=== PATIENT | female | born 1940 | race Caucasian/White ===

== ENCOUNTER 2018-04-12 11:30 | Outpatient (RCR) | payer SELFPAY | END 2018-04-12 23:59 | disposition home or self-care (01) | LOC: CR 11:30 | PROVIDERS: PCP Family Medicine; Visit Provider Family Medicine | DX: Z51.89 Encounter for other specified aftercare (principal) | CPT/HCPCS: S9472 ==

== ENCOUNTER 2018-05-10 13:17 | Outpatient (RCR) | payer SELFPAY | END 2018-05-12 23:59 | disposition home or self-care (01) | LOC: CR 13:17 | PROVIDERS: PCP Family Medicine; Visit Provider Family Medicine | DX: Z51.89 Encounter for other specified aftercare (principal) | CPT/HCPCS: S9472 ==

== ENCOUNTER 2018-06-07 11:09 | Outpatient (RCR) | payer SELFPAY | END 2018-06-12 23:59 | disposition home or self-care (01) | LOC: CR 11:09 | PROVIDERS: PCP Family Medicine; Visit Provider Family Medicine | DX: Z51.89 Encounter for other specified aftercare (principal) | CPT/HCPCS: S9472 ==

== ENCOUNTER 2018-06-11 06:28 | Day surgery (SDC) | payer MEDICARE, SELFPAY ==
--- NOTE | 2018-06-11 06:30 | W.COLOREPORT ---
Colonoscopy Report Date of procedure: 06/11/18 Pre-op diagnosis general: Hx of polyps Post-op diagnosis procedure note: other (Sessile polyps x3, diverticulosis, melanosis coli) Procedure: Colonoscopy with polypectomy by hot snare and cold forceps Surgeon: Zeinab Smith Anesthesia proc note operative: MAC (Malia Baez CRNA) Estimated blood loss (mL): 5 Pathology: other (cecal polyp x1, ascending polyps x3) Complications: None Disposition: same day Indications: Mrs. Coleman is a pleasant 77-year-old female who was seen in the office to discuss a colonoscopy. She had a colonoscopy in 2011 and was found to have a tubular adenoma. Risks, benefits, and complications were reviewed with her again and she wished to proceed. No guarantees were given or implied. Prep: Miralax/Dulcolax Procedure Start Time: 08:41 Procedure End Time: 09:27 Retraction Time: 26 min Findings: sessile cecal polyp sessile ascending polyp melanosis coli Diverticulosis Procedure Description: After informed consent was obtained the patient was taken to the procedure room and placed in a left decubitous position. Monitors were applied and a time out was done. The patients name, date of , procedure, allergies to medications and metal in their body was reviewed. The patient was then sedated. Once sedated and comfortable a rectal exam was done. External exam was normal. Internal exam revealed a normal sphincter tone and no palpable masses. The scope was then introduced and retroflexed. No internal hemorrhoids were identified. The scope was then advanced to the cecum with some difficulty. The colon was very tortuous. The TI and appendiceal orifice were identified. The prep was good. The scope was then slowly retracted over 26 minutes back into the rectum. There was one sessile polyp adjacent to the appendiceal orifice which was removed with a hot snare and forceps. 3 sessile polyps were identified in the ascending colon and were removed with hot snare and cold forceps. There was moderate to severe diverticulosis of the sigmoid colon. 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 The scope was removed and the patient was woken up and taken back to Same day surgery in stable condition. The patient tolerated the procedure well and there were no immediate complications. Follow up: The patient should follow up in 3-5 years unless they develop changes in bowel habits or other new gastrointestinal complaints.
--- NOTE | 2018-06-11 06:39 | W.PM.DSUDISC ---
Discharge Plan Disposition Patient Disposition: HOME Condition: Good Discharge Details Reason For Visit: Colonoscopy Attending Provider: Zeinab Smith Primary Care Provider: Tamie Mary Home Meds and New Rx's Prescriptions: Continue [id number] [Excedrin Extra Strength] 1 EACH tablet 81 mg PO DAILY PRNRF: 0 [id number] [Caltrate 600-D Plus Minerals] 1 EACH tablet 1,200 tab PO DAILY RF: 0 omeprazole [Prilosec] 20 MG capsule,delayed release(DR/EC) 1 tab PO DAILY Qty: 90 RF: 4 amoxicillin 500 MG capsule 2,000 mg PO PRN Qty: 4 RF: 3 rizatriptan [Maxalt-DIRECTOR OF MIDWIF[employer]/STAFF MIDWIFE] 10 MG tablet,disintegrating 1 tab PO BID PRNQty: 5 RF: 0 levothyroxine 50 MCG tablet 1 tab PO DAILY Qty: 90 RF: 4 lisinopril 10 MG tablet 10 mg PO DAILY Qty: 90 RF: 3 metoprolol tartrate 50 MG tablet 50 mg PO BID Qty: 180 RF: 12 lovastatin 20 MG tablet 20 mg PO DAILY Qty: 90 RF: 12 diazepam [Valium] 5 MG tablet 1 tab PO BID PRNQty: 90 RF: 2 Aspirin/Acetaminophen/Caffeine [Excedrin Extra Strength Caplet] 1 EACH tablet 2 ea PO DAILY RF: 0 multivitamin [Daily Multiple] 1 EACH tablet 1 ea PO DAILY RF: 0 docusate sodium [Colace] 100 MG capsule 100 mg PO DAILY PRNRF: 0 omega-3 fatty acids-fish oil 1 EACH capsule 1 ea PO DAILY RF: 0 magnesium oxide 500 MG capsule 500 mg PO DAILY RF: 0 lactobacillus combination no.4 [Probiotic] 1 EACH capsule 1 ea PO DAILY RF: 0 Colon Cleanse PRNRF: 0 Varicella-Zoster Ge/As01b/Pf [Shingrix Vial Kit] 50 MCG INJ 50 mcg IM ONCE Qty: 1 RF: 1 calcium carbonate [Calcium 600] 600 mg calcium (1,500 mg) Tablet 600 mg PO DAILY RF: 0 coenzyme Q10 [CoQ-10] 100 mg Capsule 100 mg PO DAILY RF: 0 Discontinued bisacodyl [Dulcolax (bisacodyl)] 5 mg Tablet,Delayed Release (Dr/Ec) 5 mg PO PREOP RF: 0 polyethylene glycol 3350 [Miralax] 17 gram/dose Powder See Label Instructions .ROUTE .COMPLEX RF: 0 Discharge Instructions Instructions: Colonoscopy (DC), Colorectal Polyps (DC), Diverticulosis (DC) Additional Instructions: Findings: 4 polyps Diverticulosis Follow up: 3-5 years New Medications: none Please call if you develop: fevers >101.5 Nausea or Vomiting Abdominal pain that is not transient Shortness of breath DAY SURGERY UNIT POST COLONOSCOPY INSTRUCTIONS 1. Because there will be medication in your system for the next 24 hours, you may feel a little sleepy. Your coordination will be affected. Therefore: a. Do not drive or operate dangerous equipment for 24 hours. b. Do not drink alcohol beverages for 24 hours (not even beer). c. Plan to go home and rest for the day. 2. Generally there are no restrictions on your activity after a day or so has gone by, but you may feel a bit fatigued for a few days. 3 After you arrive home you may have a light meal and return to a normal diet as you can tolerate it without feeling sick to your stomach. 4. After surgery, you may feel pain or discomfort. This should be only transient, but if it persists please contact your doctor. 5. If there are any questions regarding the findings of your procedure, please feel free to contact your doctor. 6. If you are unable to contact your doctor with a problem, contact the hospital at [phone]. 7. Continue all your regular medications unless directed otherwise. I understand the above instructions and have no questions. Signature of Patient or Responsible Adult Escort Date/Time Name of Responsible Adult Escort Signature of Nurse Date/Time Activity:: Activity as Tolerated Diet:: high fiber diet Discharge Orders Discharge Orders: Discharge Order (Routine); Ordered 06/11/18 Ordered By: Zeinab Smith DS: Diagnosis Discharge Diagnosis (1) Colorectal polyps: Status: Acute (2) Diverticulosis: Status: Acute
[2018-06-11 07:30] VITALS: BP 160/88; PULSE 94; RESP 18; TEMP 36.7; O2SAT 96
[2018-06-11] MEDS: Normal Saline 1,000 ML 80 ML IV (07:57)
--- NOTE | 2018-06-11 09:00 | BOWEL_PTH ---
PATIENT: Fiorella Coleman LOC: [facility] U#:[id number] AGE/SX: 77/F ROOM: RE06/11/[address]: Zeinab Smith MD : 1940 BED: DIS: 06/11/2018 SPEC #: [id number] RECD: 06/11/18 13:01 STATUS: FERNANDO REQ #: [id number] JOAO: 06/11/18 09:[address]: Zeinab Smith DEPT: Surgical Specimen RECD BY: Luh Gastelum ENTERED: 06/11/18 13:02 SP TYPE: Bowel OTHR DR: Tamie Mary MD, DC Tissues: 1 - BIOPSY BOWEL 2 - BIOPSY BOWEL Procedures: GROSS AND MICRO LEVEL 4 Comments: [id number]
[2018-06-11 10:01] VITALS: BP 175/94; PULSE 94; RESP 16; TEMP 36.7; O2SAT 96
== END 2018-06-11 10:39 | disposition home or self-care (01) ==
PROVIDERS: PCP Family Medicine; Visit Provider Surgery
PROC: 0DJD8ZZ Inspection of Lower Intestinal Tract, Via Natural or Artificial Opening Endoscopic (ICD-10-PCS; CPT 45378; principal; 2018-06-11 08:15)
DX: Z12.11 Encounter for screening for malignant neoplasm of colon (principal); D12.0 Benign neoplasm of cecum; D12.2 Benign neoplasm of ascending colon; K57.30 Diverticulosis of large intestine without perforation or abscess without bleeding; K63.89 Other specified diseases of intestine; I10 Essential (primary) hypertension; K21.9 Gastro-esophageal reflux disease without esophagitis
CPT/HCPCS: 45385; 88305

== ENCOUNTER 2018-07-12 13:24 | Outpatient (RCR) | payer SELFPAY | END 2018-07-12 23:59 | disposition home or self-care (01) | LOC: CR 13:24 | PROVIDERS: PCP Family Medicine; Visit Provider Family Medicine | DX: Z51.89 Encounter for other specified aftercare (principal) | CPT/HCPCS: S9472 ==

== ENCOUNTER 2018-08-12 12:49 | Outpatient (RCR) | payer SELFPAY | END 2018-08-12 23:59 | disposition home or self-care (01) | LOC: CR 12:49 | PROVIDERS: PCP Family Medicine; Visit Provider Family Medicine | DX: Z51.89 Encounter for other specified aftercare (principal) | CPT/HCPCS: S9472 ==

== ENCOUNTER 2018-08-14 12:34 | Outpatient (CLI) | payer MEDICARE, SELFPAY | END 2018-08-14 12:54 | PROVIDERS: PCP Family Medicine; Visit Provider Student in an Organized Health Care Education/Training Program | DX: I48.0 Paroxysmal atrial fibrillation (principal); I10 Essential (primary) hypertension; R06.09 Other forms of dyspnea; E78.5 Hyperlipidemia, unspecified; Z95.2 Presence of prosthetic heart valve | CPT/HCPCS: 93005; 93010 ==

== ENCOUNTER 2018-08-14 12:59 | Outpatient (CLI) | payer MEDICARE, SELFPAY ==
[2018-08-14 13:39] LABS: Abs Immature Grans 0.02 k/cumm (0.0-0.09); Absolute Basophil Count 0.04 k/cumm (0.0-0.2); Absolute Eosinophil Count 0.08 k/cumm (0.0-0.7); Absolute Lymphocyte Count 1.84 k/cumm (1.2-3.4); Absolute Monocyte Count 0.44 k/cumm (0.11-0.7); Absolute Neutrophil Count 5.17 k/cumm (1.2-6.7); Basophils % 0.5; Eosinophils % 1.1; HCT 36.2 % (36.0-46.0); HGB 11.4 g/dL (12.0-15.5); Immature Grans % 0.3; Lymphocytes % 24.2; Mean Corp. HGB Concentration 31.5 g/dL (32.0-36.0); Mean Corpuscular Hemoglobin 27.9 pg (27.0-33.0); Mean Corpuscular Volume 88.7 fL (80-95); Mean Platelet Volume 10.5 fL (8.0-11.0); Monocytes % 5.8; Neutrophils % 68.1; Platelet Count 239 x1000/uL (130-400); RBC 4.08 m/cumm (4.00-5.20); RBC Distribution Width 14.5 % (11.7-14.6); White Blood Cell Count 7.59 k/cumm (4.4-10.8)
[2018-08-14 15:33] LABS: ALT 29 U/L (12-78); AST 26 U/L (15-37); Albumin 3.7 g/dL (3.4-5.0); Alkaline Phosphatase 63 U/L (46-116); Anion Gap 7.6 mmol/L (3-11); BUN 19 mg/dL (7-18); Bilirubin, Total 0.3 mg/dL (0.2-1.0); CO2 29.4 mmol/L (21.0-32.0); CREATININE 1.16 mg/dL (0.55-1.02); Calcium 9.3 mg/dL (8.5-10.1); Chloride 105 mmol/L (98-107); Estimated GFR 45.07 (mL/min/1.73m2); Glucose 86 mg/dL (70-100); Magnesium 2.2 mg/dL (1.8-2.4); NT-proBNP 759 pg/mL; Potassium 4.6 mmol/L (3.5-5.1); Sodium 142 mmol/L (136-145); TSH (W/Ref FT4) 2.26 uIU/mL (0.358-3.74)
[2018-08-14 16:15] LABS: Iron 62 ug/dL (50-175); Total Iron Binding Capacity 328 ug/dL (250-450)
[2018-08-14 16:28] LABS: Ferritin 12 ng/mL (8-388)
== END 2018-08-14 13:19 ==
PROVIDERS: PCP Family Medicine; Visit Provider Student in an Organized Health Care Education/Training Program
DX: R06.09 Other forms of dyspnea (principal); I48.0 Paroxysmal atrial fibrillation; I10 Essential (primary) hypertension; E03.9 Hypothyroidism, unspecified; D64.9 Anemia, unspecified; Z95.2 Presence of prosthetic heart valve
CPT/HCPCS: 36415; 80048; 80076; 99215; 82728; 83540; 83550; 83735; 83880; 84443; 85025; 93005; 93010

== ENCOUNTER 2018-09-09 11:00 | Outpatient (RCR) | payer SELFPAY | END 2018-09-12 23:59 | disposition home or self-care (01) | LOC: CR 11:00 | PROVIDERS: PCP Family Medicine; Visit Provider Family Medicine | DX: Z51.89 Encounter for other specified aftercare (principal) | CPT/HCPCS: S9472 ==

== ENCOUNTER 2018-09-13 00:06 | Outpatient (CLI) | payer MEDICARE, SELFPAY ==
--- NOTE | 2018-09-13 14:05 | MERGE_ITS ---
*[facility]* *[facility]* [address] [place] [address] Date of study: 09/13/2018 Transthoracic Echocardiography M-mode, complete 2D, complete spectral Doppler, and color Doppler *STUDY CONCLUSIONS* Summary: 1. Left ventricle: The cavity size was normal. Wall thickness was increased in a pattern of moderate LVH. Systolic function was normal. The estimated ejection fraction was 60-65%. Wall motion was normal; there were no regional wall motion abnormalities. 2. Right ventricle: The cavity size was normal. Systolic function was normal. 3. Left atrium: The atrium was mildly dilated. 4. Aortic valve: A bioprosthesis was present and functioning normally. Mean gradient (S): 6.5mm Hg. 5. Tricuspid valve: There was moderate regurgitation. 6. Inferior vena cava: The vessel was patent and normal in size. The respirophasic diameter changes were in the normal range (greater than or equal to 50%), consistent with normal central venous pressure. *PATIENT PRESENTATION* Height: 167.6cm ((66in) ) S/D Pressure: 141 / 64 Weight: 69.4kg ((152.7lb) ) BSA: 1.81m^2 Test start time: 02:15 PM. Test stop time: 03:15 PM. CONSULTING Tamie Mary PERFORMING [facility] ORDERING Cory Huitron REFERRING Cory Huitron PERFORMING [facility] TI[employer] BUILDER RT Carmela (R)(NABIL)BARNEY *PROCEDURE DATA* Procedure information: The patient was identified by two identifiers. This study was interpreted by [facility]. Pertinent images and digital data are archived for permanent storage and are available for subsequent review. Comparison was made to the study of 11/22/2016. Study status: Routine. Transthoracic echocardiography. M-mode, complete 2D, complete spectral Doppler, and color Doppler. A Transthoracic Echocardiogram was performed. Scanning was performed from the parasternal, apical, subcostal, and suprasternal notch acoustic windows. Images were obtained using an [id number] cardiac ultrasound machine. Image quality was adequate. Study completion: The patient tolerated the procedure well. There were no complications. History: PMH: S/p AVR MCADAMS. *CARDIAC ANATOMY* Left ventricle: The cavity size was normal. Wall thickness was increased in a pattern of moderate LVH. Systolic function was normal. The estimated ejection fraction was 60-65%. Wall motion was normal; there were no regional wall motion abnormalities. Aortic valve: A bioprosthesis was present and functioning normally. Mobility was not restricted. Doppler: Transvalvular velocity was within the normal range. There was no stenosis. There was no significant regurgitation. VTI ratio of LVOT to aortic valve: 0.62. Valve area (VTI): 1.7cm^2. Indexed valve area (VTI): 0.9cm^2/m^2. Peak velocity ratio of LVOT to aortic valve: 0.52. Valve area (Vmax): 1.4cm^2. Indexed valve area (Vmax): 0.8cm^2/m^2. Mean velocity ratio of LVOT to aortic valve: 0.56. Valve area (Vmean): 1.5cm^2. Indexed valve area (Vmean): 0.8cm^2/m^2. Mean gradient (S): 6.5mm Hg. Peak gradient (S): 11.9mm Hg. Aorta: Aortic root: The aortic root was normal in size. Ascending aorta: The ascending aorta was normal in size. Mitral valve: Mildly calcified annulus. Mildly thickened leaflets. Mobility was not restricted. Doppler: Transvalvular velocity was within the normal range. There was no evidence for stenosis. There was mild regurgitation. Valve area by pressure half-time: 2.4cm^2. Indexed valve area by pressure half-time: 1.3cm^2/m^2. Peak gradient (D): 7.4mm Hg. Left atrium: The atrium was mildly dilated. Right ventricle: The cavity size was normal. Systolic function was normal. Pulmonic valve: Poorly visualized. Doppler: Transvalvular velocity was within the normal range. There was no evidence for stenosis. There was trivial regurgitation. Tricuspid valve: Structurally normal valve. Doppler: Transvalvular velocity was within the normal range. There was no evidence for stenosis. There was moderate regurgitation. Pulmonary artery: Poorly visualized. Pulmonary systolic pressure was in the range of 30mm Hg to 35mm Hg. Right atrium: The atrium was normal in size. Pericardium: There was no significant pericardial effusion. Systemic veins: Inferior vena cava: Well visualized. The vessel was patent and normal in size. The respirophasic diameter changes were in the normal range (greater than or equal to 50%), consistent with normal central venous pressure. Baseline ECG: Normal sinus rhythm. Measurements Left ventricle Value 11/22/2016 Reference LV ID, ED, PLAX 3.6 cm 4.2 3.5 - 6.0 LV ID, ES, PLAX 2.2 cm 2.8 2.1 - 4.0 LV PW thickness, ED, PLAX 1.2 cm 1.3 LV end-diastolic volume, 87 ml 1-p A2C LV ejection fraction, 1-p 67 % 66 A2C LV end-diastolic volume, 46 ml 1-p A4C LV ejection fraction, 1-p 62 % 75 A4C LV e', lateral 0.119 m/sec LV E/e', lateral 11 LV e', medial 0.064 m/sec LV E/e', medial 21 LV e', average 0.091 m/sec LV E/e', average 15 Ventricular septum Value 11/22/2016 Reference IVS thickness, ED, PLAX 1.3 cm 1.4 LVOT Value 11/22/2016 Reference LVOT ID, A-P 1.8 cm 1.9 LVOT area 2.7 cm^2 2.9 LVOT peak velocity, S 0.9 m/sec 0.91 LVOT mean velocity, S 0.67 m/sec LVOT VTI, S 23.1 cm 24.9 LVOT peak gradient, S 3.2 mm Hg LVOT mean gradient, S 2 mm Hg 2.4 Stroke volume (SV), LVOT 61 ml DP Stroke index (SV/bsa), 34 ml/m^2 LVOT DP Aortic valve Value 11/22/2016 Reference Aortic valve peak 1.7 m/sec velocity, S Aortic valve mean 1.2 m/sec velocity, S Aortic valve VTI, S 37.0 cm Aortic mean gradient, S 6.5 mm Hg 45.8 Aortic peak gradient, S 11.9 mm Hg 71.5 VTI ratio, LVOT/AV 0.62 0.21 Aortic valve area, VTI 1.7 cm^2 0.6 Velocity ratio, peak, 0.52 0.22 LVOT/AV Aortic valve area, peak 1.4 cm^2 0.6 velocity Velocity ratio, mean, 0.56 LVOT/AV Aortic valve area, mean 1.5 cm^2 velocity Aortic valve area/bsa, 0.8 cm^2/m^2 mean velocity Aorta Value 11/22/2016 Reference Aortic root ID, ED 2.7 cm Ascending aorta ID, A-P, S 2.8 cm 2.8 Left atrium Value 11/22/2016 Reference LA ID, A-P, ES 3.8 cm LA ID/bsa, A-P 2.1 cm/m^2 <=2.2 LA area, ES, A4C 19.9 cm^2 18 8.8 - 23.4 LA area, ES, A2C 20 cm^2 LA volume/bsa, ES, 1-p A4C 32 ml/m^2 27 LA volume, ES, 2-p 62 ml LA volume/bsa, ES, 2-p 34 ml/m^2 LA/aortic root ratio 1.42 1.59 Mitral valve Value 11/22/2016 Reference Mitral E-wave peak 1.36 m/sec 1.1 velocity Mitral A-wave peak 1.28 m/sec 1.36 velocity Mitral deceleration time (H) 316 ms 150 - 230 Mitral pressure half-time 92 ms 95 Mitral peak gradient, D 7.4 mm Hg 4.9 Mitral E/A ratio, peak 1.07 0.81 Mitral valve area, PHT, DP 2.4 cm^2 2.3 Tricuspid valve Value 11/22/2016 Reference Tricuspid regurg peak 2.7 m/sec 2.9 velocity Tricuspid peak RV-RA 28.9 mm Hg 33.5 gradient Right atrium Value 11/22/2016 Reference RA area, ES, A4C 18.7 cm^2 18 8.3 - 19.5 Legend: (L) and (H) shruthi values outside specified reference range. I have personally reviewed the images and have reviewed and edited the reported findings. Electronically signed by Osmani Jacobs 09/13/2018 16:23
== END 2018-09-13 00:26 ==
PROVIDERS: PCP Family Medicine; Visit Provider Student in an Organized Health Care Education/Training Program
DX: R06.09 Other forms of dyspnea (principal); I36.1 Nonrheumatic tricuspid (valve) insufficiency; Z95.2 Presence of prosthetic heart valve
CPT/HCPCS: 93306

== ENCOUNTER 2018-09-20 16:05 | Outpatient (CLI) | payer MEDICARE, SELFPAY ==
--- NOTE | 2018-09-20 13:00 | DI.RAD_ITS ---
SYMPTOMS/DIAGNOSIS: RT KNEE PAIN, M15.561 RIGHT KNEE: Four views were obtained. No bony or soft tissue abnormality seen.
--- NOTE | 2018-09-20 13:00 | DI.RAD_ITS ---
SYMPTOMS/DIAGNOSIS: RIGHT KNEE PAIN, M15.561 LUMBOSACRAL SPINE: Five views were obtained. There is a mild left convex lumbar scoliosis. There are moderate hypertrophic degenerative changes involving the vertebral endplates and facet joints throughout the lumbar region. There is disc space narrowing at L4-5 and L5-S1. There is no evidence of spondylolysis or spondylolisthesis. 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 RIGHT HIP: Three views were obtained. There is loss of the cartilaginous joint space of the right hip superiorly with a prominent subchondral sclerosis of the acetabulum and there are prominent osteophytes of the acetabulum and femoral head. CONCLUSION: Severe DJD, right hip. Moderate DJD, left hip, noted as well.
== END 2018-09-20 16:25 ==
PROVIDERS: PCP Family Medicine; Visit Provider Family Medicine
DX: M25.561 Pain in right knee (principal); M25.551 Pain in right hip; M16.0 Bilateral primary osteoarthritis of hip; M54.5 Low back pain; M51.37 Other intervertebral disc degeneration, lumbosacral region; G89.29 Other chronic pain
CPT/HCPCS: 73562; 72110; 73502

== ENCOUNTER 2018-10-09 11:00 | Outpatient (RCR) | payer SELFPAY | END 2018-10-10 23:59 | disposition home or self-care (01) | LOC: CR 11:00 | PROVIDERS: PCP Family Medicine; Visit Provider Family Medicine | DX: Z51.89 Encounter for other specified aftercare (principal) | CPT/HCPCS: S9472 ==

== ENCOUNTER → 2018-10-16 13:20 | Outpatient (BNVA) | payer MEDICARE, SELFPAY | PROVIDERS: PCP Family Medicine; Referring Provider Family Medicine; Visit Provider Student in an Organized Health Care Education/Training Program | DX: M25.551 Pain in right hip (principal); I10 Essential (primary) hypertension | CPT/HCPCS: 20610; 99204; 99214; J1040 ==

== ENCOUNTER 2018-11-08 12:45 | Outpatient (RCR) | payer SELFPAY | END 2018-11-10 23:59 | disposition home or self-care (01) | LOC: CR 12:45 | PROVIDERS: PCP Family Medicine; Visit Provider Family Medicine | DX: Z51.89 Encounter for other specified aftercare (principal) | CPT/HCPCS: S9472 ==

== ENCOUNTER → 2018-11-13 13:18 | Outpatient (BNVA) | payer MEDICARE, SELFPAY | PROVIDERS: PCP Family Medicine; Visit Provider Student in an Organized Health Care Education/Training Program | DX: I48.0 Paroxysmal atrial fibrillation (principal); I10 Essential (primary) hypertension; I35.9 Nonrheumatic aortic valve disorder, unspecified; Z95.3 Presence of xenogenic heart valve | CPT/HCPCS: 99214 ==

== ENCOUNTER 2018-11-18 02:28 | Outpatient (CLI) | payer MEDICARE, SELFPAY ==
--- NOTE | 2018-12-09 09:21 | ZIOP_ITS ---
DATE OF DICTATION: December 09, 2018 ZIO MONITOR REPORT STUDY INDICATION: Atrial fibrillation. REQUESTING PROVIDER: Tamie Mary M.D. FINDINGS: The patient was monitored for 13 days and 22 hours. The predominant underlying rhythm was sinus rhythm. Average heart rate in sinus rhythm 90 bpm, range 62-127 bpm. There was rare ectopy. There were seven episodes of supraventricular tachycardia, average heart rate 129 bpm, range 97-158 bpm. The longest episode lasted 14 beats with an average heart rate of 137 bpm. There were no pauses greater than 3 seconds. There was no high-degree heart block. There were 21 patient events. Eight events correlated with PVC's. All other events did not correlate with arrhythmias. FINAL INTERPRETATION: Occasional bursts of supraventricular tachycardia, asymptomatic. Rare PVC's, at times symptomatic.
== END 2018-11-18 02:48 ==
PROVIDERS: PCP Family Medicine; Visit Provider Student in an Organized Health Care Education/Training Program
DX: I48.91 Unspecified atrial fibrillation (principal); I47.1 Supraventricular tachycardia; I49.3 Ventricular premature depolarization
CPT/HCPCS: 0296T

== ENCOUNTER → 2018-11-25 12:28 | Outpatient (BNVA) | payer MEDICARE, SELFPAY | PROVIDERS: PCP Family Medicine; Referring Provider Family Medicine; Visit Provider Student in an Organized Health Care Education/Training Program | DX: M70.61 Trochanteric bursitis, right hip (principal); Z98.890 Other specified postprocedural states | CPT/HCPCS: 99213 ==

== ENCOUNTER 2018-12-09 08:09 | Outpatient (CLI) | payer MEDICARE, SELFPAY | END 2018-12-09 08:29 | PROVIDERS: PCP Family Medicine; Referring Provider Family Medicine; Visit Provider Student in an Organized Health Care Education/Training Program | DX: I48.91 Unspecified atrial fibrillation (principal); I47.1 Supraventricular tachycardia; I49.3 Ventricular premature depolarization | CPT/HCPCS: 0298T ==

== ENCOUNTER 2018-12-09 11:52 | Outpatient (RCR) | payer SELFPAY | END 2018-12-10 23:59 | disposition home or self-care (01) | LOC: CR 11:52 | PROVIDERS: PCP Family Medicine; Visit Provider Family Medicine | DX: Z51.89 Encounter for other specified aftercare (principal) | CPT/HCPCS: S9472 ==

== ENCOUNTER 2018-12-18 09:15 | Emergency (ER) | payer MEDICARE, SELFPAY ==
[2018-12-18 09:18] VITALS: BP 156/75; PULSE 111; RESP 20; TEMP 37; O2SAT 98
--- NOTE | 2018-12-18 09:32 | W.ED.GENAD ---
Discharge Plan Disposition Patient Disposition: HOME Condition: Stable Discharge Details Chief Complaint: RashLesion Clinical Impression: Cellulitis of face, Periorbital cellulitis Primary Care Provider: Tamie Mary ED Provider: Francie Sierra Home Meds and New Rx's Prescriptions: New clindamycin HCl 150 mg capsule 450 mg PO TID 10 Days Qty: 90 RF: 0 Continued amoxicillin 500 mg capsule 2,000 mg PO PRN Qty: 4 RF: 3 lisinopril 20 mg tablet 40 mg PO DAILY RF: 0 Aspirin/Acetaminophen/Caffeine [Excedrin Extra Strength Caplet] 1 EACH tablet 2 ea PO DAILY RF: 0 multivitamin [Daily Multiple] 1 EACH tablet 1 ea PO DAILY RF: 0 Varicella-Zoster Ge/As01b/Pf [Shingrix Vial Kit] 50 MCG INJ 50 mcg IM ONCE Qty: 1 RF: 1 levothyroxine 50 mcg tablet 50 mcg PO DAILY Qty: 90 RF: 4 magnesium oxide 500 mg capsule 500 mg PO DAILY Qty: 90 RF: 4 metoprolol tartrate 25 mg tablet 25 mg PO BID Qty: 180 RF: 12 omeprazole 40 mg capsule,delayed release(DR/EC) 40 mg PO DAILY Qty: 90 RF: 4 rizatriptan [Maxalt-EXCEL DEVELOPER] 10 mg tablet,disintegrating 10 mg PO BID PRN (Reason: migraine headache) Qty: 5 RF: 0 diazepam [Valium] 5 mg tablet 5 mg PO BID MDD 2 PRN (Reason: anxiety) Qty: 90 RF: 1 simvastatin 40 mg tablet 40 mg PO QPM Qty: 90 RF: 4 calcium carbonate [Calcium 600] 600 mg calcium (1,500 mg) Tablet 600 mg PO DAILY RF: 0 coenzyme Q10 [CoQ-10] 100 mg Capsule 100 mg PO DAILY RF: 0 No Action Colon Cleanse PRNRF: 0 Discharge Instructions Instructions: Cellulitis (ED), Periorbital Cellulitis in Adults (ED) Additional Instructions: Take the antibiotics until finished. Follow-up with your scheduled appointment with Dr. Parekh tomorrow and the primary care office at 9:40 AM. Return immediately to the emergency department with any worsening or new concerning symptoms such as fever, increased pain, redness, swelling or pain with eye movement. Discharge Data Discharge Physician: Francie Sierra Medical Decision Making 78-year-old female with a history of aortic stenosis status post aortic valve replacement 2016, hypertension, hyperlipidemia, breast cancer, migraines, hypothyroidism who presents with right-sided facial and right upper eyelid erythema and edema since last night. Denies known injury or bite. Denies pain with eye movement, visual changes or any acute worsening of her chronic migraines. Blood pressure mildly hypertensive, otherwise vitals within normal limits. Heart rate elevated on arrival, but normal on my exam. Afebrile. Patient appears nontoxic. She has a right-sided facial and upper eyelid erythema and edema with an area of central yellow crusting within right facial cellulitis. There is no abscess. She has no pain with EOMI. Airway intact. No lymphadenopathy. No involvement of the ear or nose. Discussed with patient that the differential diagnosis would include a periorbital/facial cellulitis, allergic reaction, versus shingles. As she has some throbbing pain in her right face with yellow crusting that could be consistent with an impetigo seen in staph or strep, will treat for cellulitis with antibiotics. A dose of clindamycin was given here as well as prescription for home. She was instructed on risk of colitis with this antibiotic but will weigh this risk vs benefit at this time. She has no pain with EOMI or fever and appears nontoxic, so I am not significantly concerned with her orbital cellulitis at this time although it was discussed that if she develops any of these symptoms, to return immediately for labs and imaging. Also discussed with patient that the treatment for an allergic reaction with include steroids but as she has no significant itching, will hold on steroids at this time and she is agreeable. Also discussed that this is not overly consistent with shingles and will hold on antivirals at this time until evaluated by her primary care doctor. An appointment was made for her at pcp office with Dr. Parekh tomorrow at 9:40 AM. At that time she will be reevaluated to see if her symptoms have changed or are evident of another process. In the meantime, patient was instructed to return here immediately if she has any worsening or new concerning symptoms such as fever, visual changes, pain with eye movement or any worsening symptoms. HPI General Mode of arrival: ambulatory. Date/Time Provider Initiated Documentation: 12/18/18 09:17. Limitations to Documentation: no limitations. Information obtained by: patient. HPI Narrative: Patient is an 78-year-old female with a history of aortic stenosis status post aortic valve replacement 2016, hypertension, hyperlipidemia, breast cancer, migraines and hypothyroidism who presents with right sided facial erythema and edema and right eyelid edema since last night, with worsening of right-sided facial and right upper eyelid erythema and edema this morning. Denies any known fever, visual changes, tingling or significant pain. She states the right sided face is throbbing but denies any significant pain in her face or around her eye. She admits to some mild itching of her upper eyelid. She also states that last night she noticed a crusted area in the center of the facial swelling and redness that has gotten worse this morning. She admits to mild sore throat yesterday but none today. She denies any known history of injury or insect bite. Related Data Home Medications Medication Instructions Recorded Confirmed Aspirin/Acetaminophen/Caffeine 2 ea PO DAILY 02/19/18 12/18/18 [Excedrin Extra Strength Caplet] Colon Cleanse PRN 02/19/18 11/25/18 multivitamin [Daily Multiple] 1 ea PO DAILY 02/19/18 12/18/18 calcium carbonate [Calcium 600] 600 mg PO DAILY 06/10/18 12/18/18 coenzyme Q10 [CoQ-10] 100 mg PO DAILY 06/10/18 12/18/18 levothyroxine 50 mcg tablet 50 mcg PO DAILY #90 tab-cap 09/09/18 12/18/18 magnesium oxide 500 mg capsule 500 mg PO DAILY #90 cap 09/09/18 12/18/18 metoprolol tartrate 25 mg tablet 25 mg PO BID #180 tab-cap 09/09/18 12/18/18 omeprazole 40 mg capsule,delayed 40 mg PO DAILY #90 tab-cap 09/09/18 12/18/18 release rizatriptan 10 mg disintegrating 10 mg PO BID PRN #5 tab 09/09/18 12/18/18 tablet diazepam 5 mg tablet 5 mg PO BID PRN #90 tab-cap MDD 2 09/30/18 12/18/18 amoxicillin 500 mg capsule 2,000 mg PO PRN #4 cap 11/13/18 12/18/18 lisinopril 20 mg tablet 40 mg PO DAILY tab-cap 11/13/18 12/18/18 simvastatin 40 mg tablet 40 mg PO QPM #90 tab 12/12/18 12/18/18 clindamycin HCl 450 mg PO TID 10 Days #90 cap 12/18/18 Previous Rx's Medication Instructions Recorded levothyroxine 50 mcg tablet 50 mcg PO DAILY #90 tab-cap 09/09/18 magnesium oxide 500 mg capsule 500 mg PO DAILY #90 cap 09/09/18 metoprolol tartrate 25 mg tablet 25 mg PO BID #180 tab-cap 09/09/18 omeprazole 40 mg capsule,delayed 40 mg PO DAILY #90 tab-cap 09/09/18 release rizatriptan 10 mg disintegrating 10 mg PO BID PRN #5 tab 09/09/18 tablet diazepam 5 mg tablet 5 mg PO BID PRN #90 tab-cap MDD 2 09/30/18 amoxicillin 500 mg capsule 2,000 mg PO PRN #4 cap 11/13/18 simvastatin 40 mg tablet 40 mg PO QPM #90 tab 12/12/18 clindamycin HCl 450 mg PO TID 10 Days #90 cap 12/18/18 Allergies Allergy/AdvReac Type Severity Reaction Status Date / Time No Known Allergies Allergy Verified 12/18/18 09:22 General Stated Complaint: RashLesion GRACE: 3 Review of Systems Review of Systems All systems reviewed & are unremarkable except as noted in HPI and below Constitutional Reports as per HPI, Denies chills and Denies fever(s) Eyes Denies blurry vision ENT Denies dizziness, Denies sore throat and Denies throat swelling Cardiovascular Denies chest pain and Denies dyspnea Respiratory Denies cough and Denies dyspnea Gastrointestinal Denies abdominal pain, Denies diarrhea and Denies vomiting Genitourinary Denies hematuria and Denies dysuria Musculoskeletal Denies back pain and Denies numbness Integumentary/Breasts Reports lesions, Reports rash and Reports skin swelling Neurologic Denies dizziness, Denies focal weakness and Denies numbness Allergic/Immunologic Denies throat swelling [facility] Medical History Diverticulosis (Chronic) Colorectal polyps (Chronic) 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) Tubular adenoma (Chronic) Renal insufficiency (Chronic) Osteoporosis (Chronic) Hypothyroidism (Chronic 12/26/10) Hyperlipidemia (Chronic 12/02/12) Hearing loss (Chronic) Headache (Chronic) Globus sensation (Chronic 10/22/13) Gastroesophageal reflux disease (Chronic) Essential hypertension (Chronic 07/07/13) Dysphonia (Chronic 06/04/17) Diverticulosis of colon without diverticulitis (Chronic 05/22/12) Abnormal mammogram, unspecified (Resolved) Aortic valve stenosis (Resolved) Atrial fibrillation (Resolved) Carpal tunnel syndrome (Resolved) Central perforation of tympanic membrane of left ear (Resolved) Elev transaminase/LDH (Resolved 05/12/10) Impacted cerumen of left ear (Resolved) Leg skin lesion, left (Resolved) Low back pain (Resolved 07/12/03) Lumbago (Resolved 07/12/03) Malignant neoplasm of female breast (Resolved 07/12/80) Neoplasm of unspecified nature of bone, soft tissue, and skin (Resolved 01/03/16) Other skilled nursing (current) drug therapy (Resolved) Severe dysmenorrhea (Resolved) Throat clearing (Resolved) Tricuspid valve disorder (Resolved) Trochanteric bursitis (Resolved) Ventricular arrhythmia (Resolved) Surgical History H/O colonoscopy (Chronic ~06/2018) H/O aortic valve replacement (Chronic 04/10/17) S/P abdominal hysterectomy (Resolved) S/P breast lumpectomy (Resolved) S/P carpal tunnel release (Resolved) Status post cataract extraction (Resolved) Abdominal hysterectomy (~1981) Breast, Lumpectomy (~1980) Extraction of cataract HEART SURGERY Open Carpal Tunnel release (~2000) Family History Mother Personal history of malignant neoplasm Father Personal history of malignant neoplasm Sister A-fib Depression Heart disease Hyperlipidemia Brother Essential hypertension Personal history of malignant neoplasm Dementia Heart disease Hyperlipidemia Sister Essential hypertension Hyperlipidemia Social History Smoking/Tobacco Use Status: Never Alcohol Intake: never Drug use: Never Do you feel safe at home: Yes Do you feel safe in your relationship?: Yes Exam Const General: cooperative and healthy appearing Orientation: alert and awake HENNM Head: normal to inspection Ears: hearing grossly normal bilaterally, external ears normal and TM's normal bilaterally General nose exam: external nose normal Face images: 1. Moderately erythematous, edematous, mildly indurated, mildly tender. 2. Area of yellow crusting. No fluctuance, pus drainage, bleeding, or papules. 3. Moderately erythematous and edematous R upper eyelid, nontender, no induration or fluctuance Mouth: oral mucosae normal Teeth and gingiva: dentition normal Throat: posterior oropharynx normal, tonsils normal, uvula midline and no peritonsillar masses Eyes General: appearance normal, both eyes and all related structures Periorbital: periorbital findings abnormal right periorbital swelling and periorbital erythema; no tenderness, no ecchymosis and no crepitus Pupils: PERRL EOM: EOM intact bilaterally Other: No pain with EOMI. No lesions noted around or within eye. Neck Neck: normal visual inspection Lymphatic: no lymphadenopathy noted Resp Effort & Inspection: normal respiratory effort and able to speak in complete sentences Cardio Rate: regular rate Skin General skin exam: no rashes or lesions noted Neuro General: alert and awake Cognition: normal cognition Speech: speech normal Gait: normal gait Motor: muscle tone normal throughout Sensory Exam: no sensory deficits noted Extrem General: normal to inspection, full ROM and normal capillary refill Psych Appearance: grossly normal Mental Status: mental status grossly normal Speech and Movement: speech and movement normal Affect: normal affect Thought Process: normal Course Vital Signs Temperature 98.6 F 12/18/18 09:18 Pulse 111 H 12/18/18 09:18 Respiratory Rate 20 12/18/18 09:18 Blood Pressure 156/75 H 12/18/18 09:18 Pulse Oximetry 98 12/18/18 09:18 Temperature 98.6 F 12/18/18 09:18 Temperature Source Temporal Artery Scan 12/18/18 09:18 Pulse 111 H 12/18/18 09:18 Respiratory Rate 20 12/18/18 09:18 Respiratory Effort Non-Labored 12/18/18 09:18 Blood Pressure 156/75 H 12/18/18 09:18 Blood Pressure Position Sitting 12/18/18 09:18 Pulse Oximetry 98 12/18/18 09:18 Oxygen Delivery Method Room Air 12/18/18 09:18 Oxygen Flow Rate 0 12/18/18 09:18 Pain Level 0 12/18/18 09:18
--- NOTE | 2018-12-18 09:36 | NUR.NOTE ---
Nursing Note: Appointment made for December 19 @ [address] Parekh. Alva Barnard.
[2018-12-18 10:34] VITALS: BP 156/75; PULSE 90; RESP 20; TEMP 37; O2SAT 98
[2018-12-18] MEDS: Clindamycin 150 MG CAP 450 MG PO (10:34)
== END 2018-12-18 09:46 | disposition home or self-care (01) ==
PROVIDERS: Emergency Provider Physician Assistant; PCP Family Medicine
DX: L03.211 Cellulitis of face (principal); L03.213 Periorbital cellulitis; I10 Essential (primary) hypertension
CPT/HCPCS: 99283

== ENCOUNTER 2019-01-10 11:57 | Outpatient (RCR) | payer SELFPAY | END 2019-01-10 23:59 | disposition home or self-care (01) | LOC: CR 11:57 | PROVIDERS: PCP Family Medicine; Visit Provider Family Medicine | DX: Z51.89 Encounter for other specified aftercare (principal) | CPT/HCPCS: S9472 ==

== ENCOUNTER 2019-02-07 11:30 | Outpatient (RCR) | payer SELFPAY | END 2019-02-09 23:59 | disposition home or self-care (01) | LOC: CR 11:30 | PROVIDERS: PCP Family Medicine; Visit Provider Family Medicine | DX: Z51.89 Encounter for other specified aftercare (principal) | CPT/HCPCS: S9472 ==

== ENCOUNTER → 2019-02-12 13:12 | Outpatient (BNVA) | payer MEDICARE, SELFPAY | PROVIDERS: PCP Family Medicine; Referring Provider Family Medicine; Visit Provider Student in an Organized Health Care Education/Training Program | DX: M70.61 Trochanteric bursitis, right hip (principal); M76.71 Peroneal tendinitis, right leg; Z98.890 Other specified postprocedural states; I10 Essential (primary) hypertension | CPT/HCPCS: 99213 ==

== ENCOUNTER 2019-02-18 02:16 | Outpatient (CLI) | payer MEDICARE, SELFPAY ==
[2019-02-18 11:37] LABS: ALT 21 U/L (12-78); AST 17 U/L (15-37); Albumin 3.7 g/dL (3.4-5.0); Alkaline Phosphatase 67 U/L (46-116); Anion Gap 7.7 mmol/L (3-11); BUN 18 mg/dL (7-18); Bilirubin, Total 0.4 mg/dL (0.2-1.0); CO2 28.3 mmol/L (21.0-32.0); CREATININE 1.03 mg/dL (0.55-1.02); Calcium 8.9 mg/dL (8.5-10.1); Calculated LDL 103 mg/dL; Chloride 104 mmol/L (98-107); Cholesterol 182 mg/dL (50-200); Estimated GFR 51.56 (mL/min/1.73m2); Glucose 87 mg/dL (70-100); HDL Cholesterol 55 mg/dL (40-60); Potassium 3.9 mmol/L (3.5-5.1); Sodium 140 mmol/L (136-145); TSH (W/Ref FT4) 2.49 uIU/mL (0.358-3.74); Total Protein 6.8 g/dL (6.4-8.2); Triglyceride 124 mg/dL (30-150)
== END 2019-02-18 02:36 ==
PROVIDERS: PCP Family Medicine; Visit Provider Family Medicine
DX: E03.9 Hypothyroidism, unspecified (principal); I10 Essential (primary) hypertension; N28.9 Disorder of kidney and ureter, unspecified
CPT/HCPCS: 36415; 80053; 80061; 83721; 84443

== ENCOUNTER 2019-03-12 13:38 | Outpatient (RCR) | payer SELFPAY | END 2019-03-12 23:59 | disposition home or self-care (01) | LOC: CR 13:38 | PROVIDERS: PCP Family Medicine; Visit Provider Family Medicine | DX: Z51.89 Encounter for other specified aftercare (principal) | CPT/HCPCS: S9472 ==

== ENCOUNTER → 2019-03-19 08:20 | Outpatient (BNVA) | payer MEDICARE, SELFPAY | PROVIDERS: PCP Family Medicine; Visit Provider Student in an Organized Health Care Education/Training Program | DX: I48.0 Paroxysmal atrial fibrillation (principal); Z95.3 Presence of xenogenic heart valve; I10 Essential (primary) hypertension; R06.02 Shortness of breath | CPT/HCPCS: 99214 ==

== ENCOUNTER → 2019-03-26 12:54 | Outpatient (BNVA) | payer MEDICARE, SELFPAY | PROVIDERS: PCP Family Medicine; Referring Provider Family Medicine; Visit Provider Student in an Organized Health Care Education/Training Program | DX: M70.61 Trochanteric bursitis, right hip (principal); M16.11 Unilateral primary osteoarthritis, right hip | CPT/HCPCS: 99213 ==

== ENCOUNTER 2019-04-07 01:15 | Outpatient (CLI) | payer MEDICARE, SELFPAY ==
--- NOTE | 2019-04-07 12:55 | DI.MAMMO_ITS ---
SYMPTOM/DIAGNOSIS: PERSONAL H/O BREAST CA, Z92.89, SCREENING, Z12.31 MAMMOGRAMS: Mammograms were interpreted according to the usual protocol including computer analysis with CAD system, tomosynthesis and C view imaging. The patient has a history of right breast cancer. The breasts are composed of heterogeneously dense fibroglandular tissue, breast density, Category C. Comparison is made with exams from [id number]. Coarse, benign calcifications are again noted in the upper outer quadrant in the area of post lumpectomy scarring. A biopsy marked is noted in the subareolar region of the right breast. No suspicious masses or suspicious microcalcifications or changes are seen in either breast. IMPRESSION: Category 2, negative mammogram with benign findings. Yearly screening mammography is recommended. SA ASSESSMENT OF FINDINGS: Negative with benign findings. Category 2. Patient will receive a letter notifying them of these results. Bi-RADS category C. The breasts are heterogeneously dense, which may obscure small masses.
== END 2019-04-07 01:35 ==
PROVIDERS: PCP Family Medicine; Visit Provider Family Medicine
DX: Z85.3 Personal history of malignant neoplasm of breast (principal); Z12.31 Encounter for screening mammogram for malignant neoplasm of breast; R92.1 Mammographic calcification found on diagnostic imaging of breast; Z98.890 Other specified postprocedural states
CPT/HCPCS: 77063; 77067

== ENCOUNTER 2019-04-11 10:48 | Outpatient (RCR) | payer SELFPAY | END 2019-04-12 23:59 | disposition home or self-care (01) | LOC: CR 10:48 | PROVIDERS: PCP Family Medicine; Visit Provider Family Medicine | DX: Z51.89 Encounter for other specified aftercare (principal) | CPT/HCPCS: S9472 ==

== ENCOUNTER 2019-04-18 03:52 | Outpatient (CLI) | payer MEDICARE, SELFPAY ==
--- NOTE | 2019-04-21 10:49 | PFT_ITS ---
PULMONARY FUNCTION TEST REPORT DATE OF SERVICE: April 18, 2019 REQUESTING PROVIDER: Cory Huitron M.D. Spirometry shows mild obstructive airways disease. No bronchodilator testing was carried out. Lung volumes show no evidence of restriction. Diffusion capacity moderately reduced, which is mildly reduced when corrected to alveolar volume. Airways resistance normal. IMPRESSION: Mild obstructive airways disease. No bronchodilator testing was carried out. This is associated with moderate diffusion defect. When this study was compared to previous one from 04/12/12, the patient has a total of 420 cc's decline in FVC. FEV1 has declined by 360 cc's. Diffusion capacity however has improved when corrected to alveolar volume. KODY/reggie D/
== END 2019-04-18 04:12 ==
PROVIDERS: PCP Family Medicine; Visit Provider Student in an Organized Health Care Education/Training Program
DX: R06.02 Shortness of breath (principal); R06.09 Other forms of dyspnea
CPT/HCPCS: 94060; 94726; 94729

== ENCOUNTER → 2019-04-30 13:07 | Outpatient (BNVA) | payer MEDICARE, SELFPAY | PROVIDERS: PCP Family Medicine; Visit Provider Student in an Organized Health Care Education/Training Program | DX: I48.0 Paroxysmal atrial fibrillation (principal); Z95.2 Presence of prosthetic heart valve; I10 Essential (primary) hypertension; E78.5 Hyperlipidemia, unspecified; R06.02 Shortness of breath | CPT/HCPCS: 99213 ==

== ENCOUNTER 2019-05-12 11:00 | Outpatient (RCR) | payer SELFPAY | END 2019-05-12 23:59 | disposition home or self-care (01) | LOC: CR 11:00 | PROVIDERS: PCP Family Medicine; Visit Provider Family Medicine | DX: Z51.89 Encounter for other specified aftercare (principal) | CPT/HCPCS: S9472 ==

== ENCOUNTER 2019-06-11 11:45 | Outpatient (RCR) | payer SELFPAY | END 2019-06-12 23:59 | disposition home or self-care (01) | LOC: CR 11:45 | PROVIDERS: PCP Family Medicine; Visit Provider Family Medicine | DX: Z51.89 Encounter for other specified aftercare (principal) | CPT/HCPCS: S9472 ==

== ENCOUNTER 2019-07-09 11:49 | Outpatient (RCR) | payer SELFPAY | END 2019-07-12 23:59 | disposition home or self-care (01) | LOC: CR 11:49 | PROVIDERS: PCP Family Medicine; Visit Provider Family Medicine | DX: Z51.89 Encounter for other specified aftercare (principal) | CPT/HCPCS: S9472 ==

== ENCOUNTER 2019-08-08 14:05 | Outpatient (RCR) | payer SELFPAY | END 2019-08-12 23:59 | disposition home or self-care (01) | LOC: CR 14:05 | PROVIDERS: PCP Family Medicine; Visit Provider Family Medicine | DX: Z51.89 Encounter for other specified aftercare (principal) | CPT/HCPCS: S9472 ==

== ENCOUNTER 2019-09-12 11:00 | Outpatient (RCR) | payer SELFPAY | END 2019-09-12 23:59 | disposition home or self-care (01) | LOC: CR 11:00 | PROVIDERS: PCP Family Medicine; Visit Provider Family Medicine | DX: Z51.89 Encounter for other specified aftercare (principal) | CPT/HCPCS: S9472 ==

== ENCOUNTER 2019-10-10 13:33 | Outpatient (RCR) | payer SELFPAY | END 2019-10-11 23:59 | disposition home or self-care (01) | LOC: CR 13:33 | PROVIDERS: PCP Family Medicine; Visit Provider Family Medicine | DX: Z51.89 Encounter for other specified aftercare (principal) | CPT/HCPCS: S9472 ==

== ENCOUNTER 2019-10-20 11:00 | Outpatient (RCR) | payer SELFPAY | END 2019-11-11 23:59 | disposition home or self-care (01) | LOC: CR 11:00 | PROVIDERS: PCP Family Medicine; Visit Provider Family Medicine | DX: Z51.89 Encounter for other specified aftercare (principal) | CPT/HCPCS: S9472 ==

== ENCOUNTER → 2020-02-10 10:53 | Outpatient (BNVA) | payer MEDICARE, SELFPAY | PROVIDERS: PCP Family Medicine; Visit Provider Internal Medicine Cardiovascular Disease | DX: I35.0 Nonrheumatic aortic (valve) stenosis (principal); I48.91 Unspecified atrial fibrillation; Z95.2 Presence of prosthetic heart valve; I10 Essential (primary) hypertension | CPT/HCPCS: 99204; 99215 ==

== ENCOUNTER 2020-02-25 01:14 | Outpatient (CLI) | payer MEDICARE, SELFPAY ==
[2020-02-25 10:52] LABS: ALT 18 U/L (14-59); AST 18 U/L (15-37); Albumin 3.8 g/dL (3.4-5.0); Alkaline Phosphatase 60 U/L (46-116); Anion Gap 8.7 mmol/L (3-11); BUN 17 mg/dL (7-18); Bilirubin, Total 0.4 mg/dL (0.2-1.0); CO2 28.3 mmol/L (21.0-32.0); CREATININE 1.02 mg/dL (0.55-1.02); Calcium 9.4 mg/dL (8.5-10.1); Calculated LDL 82 mg/dL (<100); Chloride 102 mmol/L (98-107); Cholesterol 166 mg/dL (<200); Estimated GFR 52.01 (mL/min/1.73m2); Glucose 93 mg/dL (74-106); HDL Cholesterol 53 mg/dL (40-60); Potassium 4.3 mmol/L (3.5-5.1); Sodium 139 mmol/L (136-145); TSH (W/Ref FT4) 2.21 uIU/mL (0.36-3.74); Total Protein 7.2 g/dL (6.4-8.2); Triglyceride 156 mg/dL (<150)
== END 2020-02-25 01:34 ==
PROVIDERS: PCP Family Medicine; Visit Provider Family Medicine
DX: E03.9 Hypothyroidism, unspecified (principal); E78.5 Hyperlipidemia, unspecified; I48.91 Unspecified atrial fibrillation; N28.9 Disorder of kidney and ureter, unspecified
CPT/HCPCS: 36415; 80053; 80061; 84443

== ENCOUNTER 2020-03-16 21:39 | Outpatient (REF) | payer MEDICARE, SELFPAY ==
[2020-03-16 21:53] LABS: Bilirubin Negative (Negative); Blood Large (Negative); Clarity Clear (Clear); Glucose Negative (Negative); Ketones Negative (Negative); Leukocyte Esterase Negative (Negative); Nitrite Negative (Negative); Specific Gravity 1.015 (1.005-1.025); Urobilinogen 0.2 EU/dL (Up TO 0.2)
[2020-03-16 22:02] LABS: WBC 0-2 HPF (0-5)
[2020-03-16 22:03] LABS: Bacteria Negative HPF (Negative); C & S Indicated? No; Casts Negative LPF (Negative); Crystals Negative HPF (Negative); Epithelial Cells Few HPF (Negative); Mucus Negative (Negative); Other Cells Negative (Negative)
== END 2020-03-16 21:59 ==
LOC: LBN 21:39
PROVIDERS: PCP Family Medicine; Visit Provider Family Medicine
DX: R19.8 Other specified symptoms and signs involving the digestive system and abdomen (principal)
CPT/HCPCS: 81003; 81015

== ENCOUNTER 2020-03-31 01:40 | Outpatient (CLI) | payer MEDICARE, SELFPAY ==
--- NOTE | 2020-03-31 06:30 | DI.CT_ITS ---
EXAM: CT ABDOMEN PELVIS W CLINICAL HISTORY: continued abdominal pain despite antibx,DIVERTICULITIS,K57.32,R10.9. TECHNIQUE: Imaging Protocol: Axial computed tomography images with coronal and sagittal reformatted images were created and reviewed CONTRAST MATERIAL: Intravenous: Omnipaque 350 Contrast volume:100 cc Oral: yes COMPARISON: CR CHEST 2 VIEWS PA,LAT from 10/10/2017 FINDINGS: ABDOMEN: Lung Bases: Normal where visualized. Liver: Normal density. No measurable mass. Gallbladder and biliary tract: No radiodense calculus or dilation. Pancreas: Normal density, no abnormal calcifications or inflammatory process. Spleen: Normal. Kidneys: Normal size, contour and axis. No radiodense stones or obstructive uropathy. No masses seen. Right renal cyst. Adrenal glands: No masses seen. Abdominal Aorta: Abdominal portion non-dilated. Atherosclerotic changes. PELVIS: Bladder: Symmetric distention, no gross wall thickening. Bowel: Small hiatal hernia. Severe sigmoid diverticulosis. No obstruction or bowel wall thickening. Peritoneal cavity: Trace amount of fluid posteriorly in the low pelvis adjacent to the distal sigmoid .. Bones: Degenerative changes in the lower lumbar spine. Reproductive organs: Status post hysterectomy. Lymph nodes: Unremarkable. Impression: Sigmoid diverticulosis. Question of mild diverticulitis. No evidence of abscess. RADIATION DOSE DELIVERED: 907.1mGy.cm Total DLP DATA REPOSITORY: All CT scans at this facility are submitted to the National Radiology Data Registry (NRDR) Dose Index Registry (DIR) with the [employer] ([employer]). RADIATION OPTIMIZATION: All CT scans at this facility use at least one of these dose optimization te chniques: automated exposure control; mA and/or kV adjustment per patient size (includes targeted exa ms where dose is matched to clinical indication); or iterative reconstruction.
[2020-03-31 08:11] LABS: CREATININE 1.09 mg/dL (0.55-1.02); Estimated GFR 48.18 (mL/min/1.73m2)
[2020-03-31] MEDS: Normal Saline - Diluent 50 ML VIAL IV (09:31)
[2020-03-31] MEDS: Normal Saline Flush 10 ML SYR IVP (09:32)
[2020-03-31] MEDS: Omnipaque 350 MG/ML 100 ML BTL IJ (09:32)
== END 2020-03-31 02:00 ==
PROVIDERS: PCP Family Medicine; Visit Provider Family Medicine
DX: K57.30 Diverticulosis of large intestine without perforation or abscess without bleeding (principal); R10.9 Unspecified abdominal pain
CPT/HCPCS: 74177; 82565; J3490

== ENCOUNTER 2020-04-12 02:17 | Outpatient (CLI) | payer MEDICARE, SELFPAY ==
--- NOTE | 2020-04-12 08:30 | DI.MAMMO_ITS ---
EXAM: MG MAMMO SCREENING 60 MIN DUR CLINICAL HISTORY: breast cancer screening, Z85.3, PERSONAL H/O BREAST CA TECHNIQUE: Bilateral full field digital CC and MLO mammographic images were obtained with 3D tomosyn thesis and utilizing computer aided detection (CAD). COMPARISON: Available for comparison. FINDINGS: Masses/Architectural Distortion: Status post right lumpectomy. No suspicious masses are seen. Microcalcifications: No suspicious pleomorphic-type are seen. Skin Thickening/Nipple Retraction: None. IMPRESSION: 1. No significant interval change with no specific features of malignancy noted. 2. Unless there is more urgent need, screening mammography is recommended, as per [employer] guidelines. BI-RADS Category 2 - Benign Findings Breast Density - Category C - Heterogeneously dense The mammogram demonstrates the patient's breast tissue is dense. Dense breast tissue is very common a nd is not abnormal but dense breast tissue can make it harder to find cancer on a mammogram. Also, de nse breast tissue may increase their breast cancer risk. This information about the result of the [facility] mogram report was provided to the patient to raise their awareness. Use this report when you speak wi th the patient about their risks for breast cancer, which includes their family history. At that time , you may recommend for more screening tests (Ultrasound or MRI) as they might be useful based on the ir risk. A negative radiographic report should not delay biopsy if a dominant or clinically suspicious mass is present. Up to ten percent of cancers are not identified on mammography. A negative report may reinforce clinical impression. Adenosis and dense breasts may obscure an underlying neoplasm. False positive reports average 6 to 10%. Patient will receive a letter notifying them of these results.
== END 2020-04-12 02:37 ==
PROVIDERS: PCP Family Medicine; Visit Provider Family Medicine
DX: Z12.31 Encounter for screening mammogram for malignant neoplasm of breast (principal); Z85.3 Personal history of malignant neoplasm of breast; R92.2 Inconclusive mammogram
CPT/HCPCS: 77063; 77067

== ENCOUNTER 2020-09-20 22:31 | Outpatient (CLI) | payer MEDICARE, SELFPAY ==
--- NOTE | 2020-09-20 11:00 | DI.RAD_ITS ---
EXAM: XR CERVICAL SPINE COMP 4-5V CLINICAL HISTORY: neck and r shoulder pain M54.2 CERVICALGIA. TECHNIQUE: 2D digital imaging was performed. COMPARISON: No exams were available for comparison FINDINGS: The odontoid is intact. The lateral masses are well aligned. There is straightening of the normal c ervical lordosis. There is disc space narrowing and endplate osteophytes at C4-5, C5-6 and C6-C7. F acet arthropathy is seen at multiple levels. No acute fracture or subluxation. On the left, there i s mild narrowing of the neural foramen at C5-6 and C7-T1 and marked left neural foraminal narrowing a t C6-C7. On the right, moderate to severe neural foraminal stenosis is seen from C3-4 through C7-T1. 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 DATA REPOSITORY: RADIATION DOSE DELIVERED:
--- NOTE | 2020-09-20 11:00 | DI.RAD_ITS ---
EXAM: XR SHOULDER RT COMPLETE 2+V CLINICAL HISTORY: r shoulder pain M25.511. TECHNIQUE: 2D digital imaging was performed. COMPARISON: CT CHEST WITH CONTRAST from 03/29/2012 CR CHEST 2 VIEWS PA,LAT from 10/10/2017 FINDINGS: Mild degenerative changes are seen at the acromioclavicular joint. There are mild degenerative brandon es seen at the glenohumeral joint. Dystrophic calcifications are seen anterior to the coracoid and i nferior to the glenoid. These findings are stable and can be seen on the CT scan of the chest from . Soft tissues are otherwise unremarkable. Note is made of sternal wires and aortic valve r eplacement. IMPRESSION: 1. Mild degenerative changes of the acromioclavicular and glenohumeral joint. 2. Stable dystrophic calcifications adjacent to the coracoid process and the inferior glenoid. 3. No acute abnormality. DATA REPOSITORY: RADIATION DOSE DELIVERED:
== END 2020-09-20 22:32 | disposition home or self-care (01) ==
LOC: DI 22:33
PROVIDERS: PCP Family Medicine; Visit Provider Family Medicine
DX: M19.011 Primary osteoarthritis, right shoulder (principal); M25.811 Other specified joint disorders, right shoulder; M47.812 Spondylosis without myelopathy or radiculopathy, cervical region
CPT/HCPCS: 72050; 73030

== ENCOUNTER → 2020-10-04 14:46 | Outpatient (BNVA) | payer MEDICARE, SELFPAY | PROVIDERS: PCP Family Medicine; Referring Provider Family Medicine; Visit Provider Student in an Organized Health Care Education/Training Program | DX: M70.61 Trochanteric bursitis, right hip (principal); M16.11 Unilateral primary osteoarthritis, right hip | CPT/HCPCS: 20610; J1040 ==

== ENCOUNTER 2021-01-17 10:50 | Outpatient (CLI) | payer MEDICARE, SELFPAY ==
--- NOTE | 2021-01-17 13:45 | DI.US_ITS ---
Exam(s) US LOWER EXTREMITY VENOUS LT EXAM: US LOWER EXTREMITY VENOUS LT CLINICAL HISTORY: left leg pain and tightness, M79.605 TECHNIQUE: Left lower extremity venous ultrasound performed using grayscale, color-flow, and spectra l Doppler analysis. COMPARISON: No exams were available for comparison FINDINGS: The left common femoral, femoral and popliteal veins demonstrate normal compressibility, augmentation , and color Doppler. The posterior tibial veins are patent. The saphenofemoral junction is unremarka ble. There is a 3.4 x 3.2 x 2.9 cm Felder's cyst. The soft tissues are unremarkable. IMPRESSION: 1. No DVT. 2. Felder's cyst. DATA REPOSITORY:
== END 2021-01-17 11:10 ==
PROVIDERS: PCP Family Medicine; Visit Provider Physician Assistant
DX: M79.605 Pain in left leg (principal); M71.22 Synovial cyst of popliteal space [Baker], left knee
CPT/HCPCS: 93971

== ENCOUNTER 2021-01-27 00:45 | Outpatient (CLI) | payer MEDICARE, SELFPAY ==
--- NOTE | 2021-01-27 13:30 | DI.RAD_ITS ---
Exam(s) RF JOINT INJECTION FLUORO GUID EXAM: RF JOINT INJECTION FLUORO GUID CLINICAL HISTORY: R HIP INJ UNDER FLUORO.TROCHANTERIC BURSITIS RT HIP,M70.61 TECHNIQUE: Fluoroscopy provided. Radiologist not present. CONTRAST MATERIAL: None COMPARISON: No exams were available for comparison FINDINGS: Fluoroscopy was provided for Dr. Burgess during right hip injection.. Submitted image(s) reveal placement of needle via lateral approach. Tip of the needle is at the late ral aspect of the femoral head. There is intra-articular contrast. Please refer to the procedure report for complete details. Cumulative Dose: caryn Koroma=1.27 mGy IMPRESSION: RADIATION DOSE DELIVERED:
--- NOTE | 2021-01-27 13:34 | W.PROCNOTE ---
Date of service: 01/27/21 Time of Service: 13:34 Procedure Note Date of procedure: 01/27/21 Procedure: Right Hip Injection with Fluoroscopic Guidance Surgeon/Proceduralist/Physician: Tomasz Burgess Procedure Diagnosis: Right Hip Osteoarthritis Procedure Indications: Fiorella has had persistent pain of the RIGHT hip and groin. Noninvasive measures have been tried. To serve as both diagnostic and therapeutic, an injection under fluoroscopy was recommended. I had discussed the risks of the procedure and the patient elected to proceed. Procedure Description: She was greeted in the flouroscopy room. The correct side was identified and the consent was reviewed with the patient and signed. The patient was then placed in the supine position on the fluoroscopy table. The RIGHT hip was then prepped with Chloraprep. The anterolateral injection starting point was identiifed by bony landmarks and fluoroscopy. The skin and soft tissue in the tract of the injection was anesthetized with 1% Lidocaine. A spinal needle was then inserted deep into the hip joint at the level of the lateral femoral neck under fluoroscopic guidance. A small amount of Omnipaque solution was injected to confirm intraarticular placement. Once confirmed, the hip was injected with 6cc of 0.5% Bupivicaine and 80mg of Depo-Medrol. A bandaid was placed on the injection site. The patient tolerated the procedure well and noted improvement in pre-injection pain.
[2021-01-27] MEDS: methylPREDNISolone ACETATE 80 MG/ML VIAL IM (14:00)
[2021-01-27] MEDS: Omnipaque 300 MG/ML 10 ML BTL IJ (14:01)
== END 2021-01-27 01:05 ==
PROVIDERS: PCP Family Medicine; Visit Provider Student in an Organized Health Care Education/Training Program
DX: M16.11 Unilateral primary osteoarthritis, right hip (principal); M25.551 Pain in right hip; R10.31 Right lower quadrant pain
CPT/HCPCS: 20610; 77002; J1040

== ENCOUNTER 2021-02-18 01:10 | Outpatient (CLI) | payer MEDICARE, SELFPAY ==
[2021-02-18 14:00] LABS: ALT 21 U/L (14-59); AST 17 U/L (15-37); Albumin 3.7 g/dL (3.4-5.0); Alkaline Phosphatase 55 U/L (46-116); BUN 21 mg/dL (7-18); Bilirubin, Total 0.3 mg/dL (0.2-1.0); CREATININE 1.4 mg/dL (0.55-1.02); Calcium 9.1 mg/dL (8.5-10.1); Chloride 105 mmol/L (98-107); Glucose 91 mg/dL (74-106); Potassium 4.6 mmol/L (3.5-5.1); Sodium 140 mmol/L (136-145); TSH (W/Ref FT4) 2.58 uIU/mL (0.36-3.74); Total Protein 7.1 g/dL (6.4-8.2)
[2021-02-18 19:31] LABS: Calculated LDL 99 mg/dL (<100); Cholesterol 189 mg/dL (<200); HDL Cholesterol 49 mg/dL (40-60); Triglyceride 207 mg/dL (<150)
== END 2021-02-18 01:11 | disposition home or self-care (01) ==
LOC: LOS 01:10
PROVIDERS: PCP Family Medicine; Visit Provider Family Medicine
DX: E03.9 Hypothyroidism, unspecified (principal); E78.5 Hyperlipidemia, unspecified; I48.91 Unspecified atrial fibrillation
CPT/HCPCS: 36415; 80053; 80061; 84443

== ENCOUNTER → 2021-02-24 12:31 | Outpatient (BNVA) | payer MEDICARE, SELFPAY | PROVIDERS: PCP Family Medicine; Referring Provider Family Medicine; Visit Provider Internal Medicine Cardiovascular Disease | DX: I35.0 Nonrheumatic aortic (valve) stenosis (principal); I10 Essential (primary) hypertension; Z95.2 Presence of prosthetic heart valve | CPT/HCPCS: 99214; 99213 ==

== ENCOUNTER 2021-03-11 03:51 | Outpatient (CLI) | payer MEDICARE, SELFPAY ==
--- NOTE | 2021-03-11 08:15 | DI.RAD_ITS ---
Exam(s) XR LUMBAR SPINE COMPLETE EXAM: XR LUMBAR SPINE COMPLETE CLINICAL HISTORY: LBP and cramping in left leg, M54.5, M79.605. TECHNIQUE: 2D digital imaging was performed. COMPARISON: CR XR lumbar spine complete from 09/20/[address] ABDOMEN PELVIS W from 03/31/[address] ABDOMEN PELVIS W from 03/31/2020 FINDINGS: There are 5 lumbar type vertebral bodies. No spondylolisthesis is seen. There is disc space narrowi ng at L4-5. There are endplate osteophytes at all levels of the lumbar spine. Facet hypertrophy is seen at L4-5 and L5-S1. No acute fracture or subluxation is seen. There is a left convex curvature of the lumbar spine. Atherosclerosis. IMPRESSION: Moderate degenerative changes in the lumbar spine. DATA REPOSITORY: RADIATION DOSE DELIVERED:
== END 2021-03-11 04:11 ==
PROVIDERS: PCP Family Medicine; Visit Provider Family Medicine
DX: M47.816 Spondylosis without myelopathy or radiculopathy, lumbar region (principal); R25.2 Cramp and spasm
CPT/HCPCS: 72110

== ENCOUNTER 2021-04-19 02:26 | Outpatient (CLI) | payer MEDICARE, SELFPAY ==
--- NOTE | 2021-04-19 07:45 | DI.MAMMO_ITS ---
Exam(s) MG MAMMO SCREENING 60 MIN DUR EXAM: MG MAMMO SCREENING 60 MIN DUR CLINICAL HISTORY: breast cancer screening,personal h/o breast ca,z85.3 TECHNIQUE: Mammograms were interpreted according to the usual protocol including computer analysis w Qbix CAD system, tomosynthesis and C-view imaging. COMPARISON: 2010 through 2019 FINDINGS: The breasts are composed of heterogeneously dense fibroglandular densities, Breast Density category C . Patient is status post lumpectomy in the upper outer quadrant of the right breast. No suspicious masses or suspicious microcalcifications are seen in either breast.. Coarse calcificat ions and scarring are again noted in the upper outer right breast. A biopsy marker is seen in the samaniego bareolar region of the right breast. No skin thickening or abnormal axillary lymph nodes are seen. There has been no significant change from prior exams. IMPRESSION: BI-RADS Cat 2 - Benign Findings Yearly screening mammography is recommended. Breast Density Category C, heterogeneously Dense. The mammogram demonstrates the patient's breast tissue is dense. Dense breast tissue is very common a nd is not abnormal but dense breast tissue can make it harder to find cancer on a mammogram. Also, de nse breast tissue may increase breast cancer risk. This information about the result of the mammogram report was provided to the patient to raise their awareness. Use this report when you speak with the patient about their risks for breast cancer, which includes their family history. At that time, you may recommend additional screening tests (Ultrasound or MRI) as they might be useful based on their r isk. A negative radiographic report should not delay biopsy if a dominant or clinically suspicious mass is present. Up to ten percent of cancers are not identified on mammography. A negative report may reinforce clinical impression. Adenosis and dense breasts may obscure an underlying neoplasm. False positive reports average 6 to 10%.
== END 2021-04-19 02:46 ==
PROVIDERS: PCP Family Medicine; Visit Provider Family Medicine
DX: Z85.3 Personal history of malignant neoplasm of breast (principal); Z12.31 Encounter for screening mammogram for malignant neoplasm of breast
CPT/HCPCS: 77063; 77067

== ENCOUNTER 2021-05-02 11:53 | Outpatient (CLI) | payer MEDICARE, SELFPAY ==
--- NOTE | 2021-05-02 10:45 | DI.RAD_ITS ---
Exam(s) XR KNEE RT 3V AP,LAT,LEISA EXAM: XR KNEE RT 3V AP,LAT,LEISA CLINICAL HISTORY: right knee pain. TECHNIQUE: 2D digital imaging was performed. COMPARISON: No exams were available for comparison FINDINGS: Three views. No evidence of fracture. Small amount of increased joint fluid. Bone density is age-appropriate. M inimal if any significant degenerative changes. No joint space narrowing. No osteophytes. However, there is a lucency measuring 2 x 1.8 cm in the tibial plateau and extending into the subjacent metap hysis, best seen on the tunnel view and not exhibiting a sclerotic border. Less evident on the other views. Nevertheless, cannot exclude the possibility of this representing a concerning bone lesion. IMPRESSION: Possible bone lesion in the tibial plateau-metaphysis as described above. Recommend follow-up MRI. DATA REPOSITORY: RADIATION DOSE DELIVERED:
== END 2021-05-02 11:54 | disposition home or self-care (01) ==
LOC: DIORS 11:53
PROVIDERS: PCP Family Medicine; Referring Provider Family Medicine; Visit Provider Student in an Organized Health Care Education/Training Program
DX: M25.561 Pain in right knee (principal); M25.861 Other specified joint disorders, right knee; M70.61 Trochanteric bursitis, right hip; M16.11 Unilateral primary osteoarthritis, right hip
CPT/HCPCS: 20610; 73562; J1040

== ENCOUNTER 2021-05-19 03:10 | Outpatient (CLI) | payer MEDICARE, SELFPAY ==
[2021-05-19 13:00] LABS: ALT 22 U/L (14-59); AST 17 U/L (15-37); Albumin 3.7 g/dL (3.4-5.0); Alkaline Phosphatase 56 U/L (46-116); Anion Gap 6.7 mmol/L (3-11); BUN 28 mg/dL (7-18); Bilirubin, Total 0.4 mg/dL (0.2-1.0); CO2 29.3 mmol/L (21.0-32.0); CREATININE 1.2 mg/dL (0.55-1.02); Calcium 9.1 mg/dL (8.5-10.1); Chloride 104 mmol/L (98-107); Estimated GFR 43.01 (mL/min/1.73m2); Glucose 85 mg/dL (74-106); Potassium 4.3 mmol/L (3.5-5.1); Sodium 140 mmol/L (136-145); Total Protein 7.2 g/dL (6.4-8.2)
== END 2021-05-19 03:11 | disposition home or self-care (01) ==
LOC: LOS 03:11
PROVIDERS: PCP Family Medicine; Visit Provider Family Medicine
DX: I10 Essential (primary) hypertension (principal)
CPT/HCPCS: 36415; 80053

== ENCOUNTER → 2021-06-14 14:12 | Outpatient (BNVA) | payer MEDICARE, SELFPAY | PROVIDERS: PCP Family Medicine; Referring Provider Student in an Organized Health Care Education/Training Program; Visit Provider Student in an Organized Health Care Education/Training Program | DX: M70.61 Trochanteric bursitis, right hip (principal); M76.31 Iliotibial band syndrome, right leg | CPT/HCPCS: 99214 ==

== ENCOUNTER → 2021-10-11 13:01 | Outpatient (BNVA) | payer MEDICARE, SELFPAY | PROVIDERS: PCP Family Medicine; Referring Provider Family Medicine; Visit Provider Surgery | DX: Z12.11 Encounter for screening for malignant neoplasm of colon (principal); Z86.010 Personal history of colon polyps ==

== ENCOUNTER 2021-11-09 02:51 | Outpatient (CLI) | payer MEDICARE, SELFPAY ==
[2021-11-09 15:38] LABS: Source Nasal/Nares
[2021-11-09 22:55] LABS: COVID-19 PCR Negative (Negative)
== END 2021-11-09 02:52 | disposition home or self-care (01) ==
LOC: LBO 02:52
PROVIDERS: PCP Family Medicine; Visit Provider Student in an Organized Health Care Education/Training Program
DX: Z20.822 Contact with and (suspected) exposure to COVID-19 (principal)
CPT/HCPCS: 87635; U0005

== ENCOUNTER 2021-11-11 09:12 | Day surgery (SDC) | payer MEDICARE, SELFPAY ==
[2021-11-11] VITALS (8 sets, daily range): BP systolic 85–139; BP diastolic 48–76; PULSE 82–99; RESP 9–18; TEMP 36.2–36.4; O2SAT 94–98; BMI 27.6
--- NOTE | 2021-11-11 06:13 | ANES.PREOP_ITS ---
General Info Date of Service Date Performed: 11/11/21 Height: 5 ft 4 in Weight: 73.057 kg Body Mass Index (BMI): 27.6 Surgical Procedure: Operation Date: 11/11/21 11:20 Proposed Procedure Side Surgeon p Hip Endoscopy Iliotibial Band Release w/ Trochanteric Bursectomy Right Ayad Dove MD Meds Allergies and Home Medications Allergies Allergy/AdvReac Type Severity Reaction Status Date / Time No Known Allergies Allergy Verified 11/11/21 09:44 Home Medication Medication Instructions Recorded Aspirin/Acetaminophen/Caffeine 2 ea PO DAILY 02/19/18 [Excedrin Extra Strength Caplet] multivitamin (Daily Multiple) 1 ea PO DAILY 02/19/18 coenzyme Q10 100 mg capsule 100 mg PO DAILY 06/10/18 (CoQ-10) diazepam 5 mg tablet (Valium) 5 mg PO BID PRN #90 tab-cap MDD 2 01/13/21 lisinopril 20 mg tablet 40 mg PO DAILY #180 tab-cap 01/13/21 rizatriptan 10 mg disintegrating 10 mg PO BID PRN #5 tab 01/13/21 tablet (Maxalt-PECAN MALLOW DIPPER) simvastatin 40 mg tablet 40 mg PO QPM #90 tab 01/13/21 metoprolol succinate 50 mg 50 mg PO DAILY #90 tab 01/14/21 tablet,extended release 24 hr ColonCleanse 1 cap PO DAILY 03/07/21 potassium chloride 20 mEq 20 meq PO DAILY #90 tab 04/26/21 tablet,extended release levothyroxine 50 mcg tablet 50 mcg PO DAILY #90 tab-cap 05/08/21 furosemide 40 mg tablet 40 mg PO DAILY #90 tab 05/10/21 omeprazole 20 mg capsule,delayed 40 mg PO DAILY PRN cap 06/14/21 release Current Visit Medications: Current Medications Generic Name Dose Route Start Last Admin Trade Name Freq PRN Reason Stop Dose Admin Ringer's Solution 1,000 mls @ 100 mls/hr 11/11/21 06:00 IV 12/10/21 23:59 INFUSION JEAN PIERRE Cefazolin Sodium/Dextrose 2 gm in 50 mls @ 100 mls/hr 11/11/21 06:00 Ancef Duplex IVPB 11/11/21 23:59 PREOP JEAN PIERRE IV Miscellaneous Supplies 1 each 11/11/21 06:00 Iv Access IV 12/10/21 23:59 DIRECTED JEAN PIERRE Sodium Chloride 0 ml 11/11/21 06:00 Normal Saline Flush 10 Ml Syr IV 12/10/21 23:59 PRN PRN Sodium Chloride 0 ml 11/11/21 06:00 Normal Saline 10 Ml Vial IJ 12/10/21 23:59 DIRECTED PRN Sterile Water 0 ml 11/11/21 06:00 Water,Injection,Sterile 10 Ml Vial IJ 12/10/21 23:59 DIRECTED PRN PFSH Active Problems Active Problems: Problem Status Onset Code Screening for colon cancer Z12.11 Diverticulitis large intestine K57.32 Aortic valve stenosis I35.0 Atrial fibrillation 04/10/17 I48.91 Mitral valve regurgitation I34.0 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 Low back pain radiating to left leg Low back pain with sciatica (07/12/03) Lumbago (07/12/03) 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 Malignant neoplasm of female breast (07/12/80) right lumpectomy w/ radiation 1980 Neck pain on right side Neoplasm of unspecified nature of bone, soft tissue, and skin (01/03/16) On amiodarone therapy (04/10/17) Osteoporosis T-scores -2.5, -1.1, -5.5 Other usp (current) drug therapy 04/10/17 On Amiodarone Therapy Perforation of left tympanic membrane Periorbital cellulitis of right eye Peroneal tendonitis of right lower leg Primary osteoarthritis of right hip Right knee pain Right shoulder pain Severe dysmenorrhea s/p hysterectomy 1981 Skin lesion of left lower extremity (02/07/16) Sore throat Throat clearing 05/15/17 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 PROCTOR HEART SURGERY 03/22/17 [facility] [place] Open Carpal Tunnel release (~2000) S/P abdominal hysterectomy 08/13/81 total; for dysmennorrhea S/P breast lumpectomy 08/13/80 right breast cancer S/P carpal tunnel release 08/13/00 Status post abdominal hysterectomy Status post breast lumpectomy Status post carpal tunnel release Status post cataract extraction 03/07/16 right cataract s/p b/l cataract extraction; Dr. Proctor; 02/22/16 right; 11/07/16 left Status post right cataract extraction (03/07/16) Tobacco Smoking/Tobacco Use Status: Never Passive smoking exposure: Yes Second hand exposure: Yes Alcohol Alcohol Intake: current Alcohol intake frequency: holidays/special occasions only Alcohol type: beer Substance Use Substance use: Never Substance use type: does not use Counseling provided: none Vital Signs and Lab Results Lab Results Blood Type / Crossmatch: No Data to Display Complete Blood Count: No Data to Display Complete Metabolic Panel: No Data to Display Liver Function Panel: No Data to Display Coagulation Panel: No Data to Display Cardiac Panel: No Data to Display Arterial Blood Gas: No Data to Display Venous Blood Gas: No Data to Display Pancreas Panel: No Data to Display Thyroid Panel: No Data to Display Infectious Disease: Coronavirus (COVID-19)(PCR) Negative (Negative) 11/09/21 11:05 11/09/21 Coronavirus 2019 Source Nasal/Nares 11/09/21 11:05 11/09/21 Blood Cultures: No Data to Display Toxicology Panel: No Data to Display Imaging and Studies Imaging and Studies Study information below may be from another EMR and interpreted by another provider. Please see original notes in EMR for more complete details. Echocardiogram Summary: 09/2018: LVEF 60-65%, moderate LVH, bioprostetic AoV mean gradient 6.5. moderate tricuspid regurg. Carotid Artery Summary:: 2013: no hemodynamically significant stenosis. Pulmonary Function Summary: 2019: mild obstructive dz. Anesthesia Assessment and Plan Anesthesia History Personal History: No History of Anesthesia Complications Family History: No Family History of Anesthesia Complications Exercise Tolerance Exercise Tolerance: Metabolic Equivalents>4 Pertinent Negatives Pertinent Negatives: No Symptoms of GERD, No Major Cardiovascular Symptoms or Complaints, No Major Pulmonary Symptoms or Complaints and No History of CVA/TIA Cardiac & Pulmonary Exam Cardiac Exam: Normal S1/S2 Heart Sounds and Other (Click with AVR) Pulmonary Exam: Clear Bilateral Breath Sounds Implantable Cardiac Device Does patient have a Pacemaker or an ICD?: No Airway Exam Known Difficult Airway: No Mallampati Class: 3 Mouth Opening: Normal (> 3cm) Thyromental Distance: Greater than 3 cm Neck Range of Motion: Full ROM Neck Circumference: Normal Teeth Condition: Normal Dentition ASA Classification ASA Score: ASA 2 Emergency Case?: No NPO Status NPO Status: NPO Clears >2 hours, Solids >8 hours Anesthesia Plan Resuscitation Status: Full Code Anesthesia Technique: General Anesthesia Airway Planned: Endotracheal Tube Monitors Used: Standard Monitors Preoperative Comments:: 81 yo female for hip scope. Sig PMHx: AVR, mod TR, HTN (lisinopril, metoprolol, furosemide), SVT, GERD (omeprazole), hypothyroid (on replacement), vocal cord mass. Previous anes: mac 3 grade 1, easy mask.
--- NOTE | 2021-11-11 09:45 | DI.RAD_ITS ---
Exam(s) XR HIP RT IN OR EXAM: XR HIP RT IN OR CLINICAL HISTORY: TROCHANTERIC BURSITIS RIGHT HIP TECHNIQUE: 2D and realtime digital imaging was performed. CONTRAST MATERIAL: Refer to procedure report. COMPARISON: No exams were available for comparison FINDINGS: Fluoroscopy was provided for Dr. Dove during the performance of a right hip trochanteric bursitis t reatment. Please refer to the procedure report for complete details. Ka,r=0.8072 mGy IMPRESSION: RADIATION DOSE DELIVERED:
[2021-11-11] MEDS: Lactated Ringers 1,000 ML 100 ML IV (10:20)
[2021-11-11] MEDS: ceFAZolin 2 GM/50 ML BAG IVPB (10:55)
--- NOTE | 2021-11-11 12:00 | ROE_ITS ---
Date of service: 11/11/21 Time of Service: 11:00 Operative Note Operative Note DATE OF PROCEDURE: 11/11/21 PRE-OP DIAGNOSIS: Right 1. Iliotibial band syndrome 2. Trochanteric bursitis POST-OP DIAGNOSIS: same Right 1. Iliotibial band syndrome 2. Trochanteric bursitis 3. Gluteal tendon tear PROCEDURE: Right]= hip endoscopic iliotibial band release (CPT# 08870), trochanteric bursectomy (CPT# 70513), and gluteal tendon repair (CPT# 81779) SURGEON: Ayad Dove PULLBOAT ENGINEER: Loc Thompson ANESTHESIA TYPE: Local By Surgeon and General LMA/ETT Refer to Anesthesia Record ESTIMATED BLOOD LOSS: 5 COMPLICATIONS: None Patient was transported to: PACU Patient's condition: stable Implants: Arthrex 5.5mm SwiveLock x1 Indications: Please see complete medical record for details. Findings: Thickened iliotibial band. Inflamed trochanteric bursitis. Significant central high?grade tearing gluteus medius with minimal retraction. Procedure Description: In the operating room, general anesthesia was induced. The patient was positioned supine on the [facility] operating room table. All bony prominences were well-padded. Preoperative antibiotics were administered. The hip was prepped and draped in the usual sterile fashion. The correct patient, procedure, and side of the procedure were all verified prior to incision. 30 cc of lidocaine and bupivacaine mixture containing epinephrine was infiltrated about the subcutaneous tissues for the planned anterior lateral and distal anterolateral portals as well as deeply over the greater trochanter. A knife was used to incise the skin for the anterior lateral and distal anterolateral portals followed by blunt dissection subcutaneously. Under fluoroscopic guidance, a switching stick and arthroscope were inserted localizing the iliotibial band over the greater trochanter. Blunt dissection and the mechanical shaver were used to resect fat and overlying tissue about the center of the iliotibial band and carefully expose the anterior and posterior margins. Once there was adequate exposure of the IT band, the greater trochanter was again localized under fluoroscopic guidance with a spinal needle inserted through the skin down to bone. This central area was marked using the radiofrequency ablator. A Alvin blade was brought in and used to create a 2 cm longitudinal incision in line with the IT band fibers as well as extending it in a cruciate fashion with 2 cm incisions anteriorly and posteriorly. The radiofrequency ablator was used to achieve hemostasis. The mechanical shaver was then used to debride the IT band released edges exposing the trochanteric bursa. The mechanical shaver was then used to excise the trochanteric bursa taking care to protect musculature about the margins of the greater trochanter as well as neurovascular structures especially posteriorly. There was excellent visualization of the vastus lateralis as well as gluteus medius confirming appropriate bursa excision. The hip was brought through range of motion including internal and external rotation and there was no impinging iliotibial band tissue or remaining pathologic bursa. The viewing and working portals were switched and appropriate IT band release, trochanteric bursa excision, and hemostasis confirmed. There was a central defect of the gluteus medius tendon. On probing it exposed a high-grade tear. Light debridement was done at the margins and bony footprint. Fluoroscopic guidance used to confirm appropriate working area on the lateral greater trochanter. A percutaneous portal was made centrally for suture anchor placement. The self retrieving suture passer was used through the distal portal to place a FiberTape inverted horizontal mattress stitch centrally in the tendon followed by a suture tape FiberLink in cinch mode at the posterior junction. These repair sutures were brought out the percutaneous portal over half pipe. The punch was used with fluoroscopic assistance to confirm appropriate suture anchor placement. A single 5.5 mm SwiveLock anchor was loaded with the repair sutures and deployed. The repair was inspected through range of motion and demonstrated good tendon reduction and excellent fixation strength. There was no additional tearing requiring repair. Suction was used to remove fluid from the endoscopic space. The portals were closed using 3-0 Monocryl in a buried fashion. Steri-Strips were applied over the incisions followed by Xeroform, 4 x 4 gauze, an ABD pad, and secured with tape. The patient awoke from anesthesia without complication and was transferred to the recovery room in a stable condition.
[2021-11-11] MEDS: Bupivacaine 0.25% Pres-Free 30 ML VIAL (12:15)
[2021-11-11] MEDS: EPINEPHrine 30 MG/30 ML VIAL (12:20)
[2021-11-11] MEDS: fentaNYL 100 MCG/2 ML VIAL IVP (12:36)
--- NOTE | 2021-11-11 12:42 | W.ANESPOSTOP ---
Postoperative Evaluation Date, Time and Location Date Performed: 11/11/21 Time Performed: 12:42 Patient Location: PACU Vital Signs Most Recent Imported Vital Signs: Most Recent Vital Signs Temp Pulse Resp BP Pulse Ox 36.4 C L 86 13 97/48 L 94 11/11/21 12:26 11/11/21 12:26 11/11/21 12:26 11/11/21 12:26 11/11/21 12:26 Pain Score Most Recent Pain Score: Most Recent Pain Score Pain Level 8 11/11/21 12:26 Assessment Mental Status: Awake (Alert & Oriented to Patient Baseline) Airway and Respiratory Function: Patent airway with normal (patient baseline) respiratory exam Cardiovascular Function: Hemodynamically Stable Hydration Status: Adequately Hydrated Nausea & Vomiting: No Nausea or Vomiting Pain: Pain is tolerable per patient Peripheral Nerve Block: Patient did not receive a nerve block
[2021-11-11] MEDS: traMADol 50 MG TAB PO (13:31)
--- NOTE | 2021-11-11 14:29 | PDOC.DSDIS_ITS ---
Discharge Plan Disposition Patient Disposition: HOME Condition: Stable Discharge Details Reason For Visit: Right hip surgery Attending Provider: Ayad Dove Primary Care Provider: Tamie Mary Home Meds and New Rx's Prescriptions: Continued omeprazole 20 mg capsule,delayed release(DR/EC) 40 mg PO DAILY PRN (Reason: reflux) 0RF ColonCleanse 1 cap PO DAILY 0RF Aspirin/Acetaminophen/Caffeine [Excedrin Extra Strength Caplet] 1 EACH tablet 2 ea PO DAILY 0RF multivitamin [Daily Multiple] 1 EACH tablet 1 ea PO DAILY 0RF diazepam [Valium] 5 mg tablet 5 mg PO BID MDD 2 PRN (Reason: anxiety) Qty: 90 1RF Rx Instructions: 3 month supply lisinopril 20 mg tablet 40 mg PO DAILY Qty: 180 4RF rizatriptan [Maxalt-SPECIAL EDUCATION INCLUSION TEACHER] 10 mg tablet,disintegrating 10 mg PO BID PRN (Reason: migraine headache) Qty: 5 0RF simvastatin 40 mg tablet 40 mg PO QPM Qty: 90 4RF metoprolol succinate 50 mg tablet extended release 24 hr 50 mg PO DAILY Qty: 90 3RF potassium chloride 20 mEq tablet extended release 20 meq PO DAILY Qty: 90 5RF levothyroxine 50 mcg tablet 50 mcg PO DAILY Qty: 90 4RF furosemide 40 mg tablet 40 mg PO DAILY Qty: 90 3RF coenzyme Q10 [CoQ-10] 100 mg Capsule 100 mg PO DAILY 0RF Discharge Instructions Additional Instructions: Surgery: Right hip endoscopy with iliotibial band release, trochanteric bursectomy, and gluteal tendon repair Activity: Protected weightbearing with a walker for 6 weeks. Gentle hip range of motion. Physical therapy prescription will be sent electronically to start in about 3 weeks. Prescriptions: No new, resume home medicines. May use [id number]-[id number] Motrin/Aleve/Advil/ibuprofen and/or Tylenol/acetaminophen as needed for pain Dressings: Leave dressing in place for 3 days. May then remove and leave open to air or cover incisions with Band-Aids. May shower after 5 days. Follow-up: 10-[address] Dove Let us know right away if you develop any redness, drainage, fevers, chest pain, or trouble breathing. Do not drink alcohol or drive for at least 24 hours after anesthesia. Please call the office during business hours with any questions or concerns. Referrals: Ayad Dove MD [ [facility] STAFF PHYSICIAN] - Discharge Orders Discharge Orders: Discharge Order (Routine); Ordered 11/11/21 Ordered By: Ayad Dove DS: Diagnosis Discharge Diagnosis (1) Trochanteric bursitis, right hip: Status: Acute
== END 2021-11-11 14:59 | disposition home or self-care (01) ==
PROVIDERS: PCP Family Medicine; Visit Provider Student in an Organized Health Care Education/Training Program
PROC: (CPT 29863; principal; 2021-11-11 11:00)
DX: M70.61 Trochanteric bursitis, right hip (principal); M76.31 Iliotibial band syndrome, right leg; M66.851 Spontaneous rupture of other tendons, right thigh; I48.91 Unspecified atrial fibrillation; K21.9 Gastro-esophageal reflux disease without esophagitis; K57.30 Diverticulosis of large intestine without perforation or abscess without bleeding; I10 Essential (primary) hypertension; I08.3 Combined rheumatic disorders of mitral, aortic and tricuspid valves
CPT/HCPCS: 27006; 27062; 27305; 73501; J0690; J1100; J2405; J2704; J3010

== ENCOUNTER → 2021-11-23 12:56 | Outpatient (BNVA) | payer MEDICARE, SELFPAY | PROVIDERS: PCP Family Medicine; Referring Provider Family Medicine; Visit Provider Student in an Organized Health Care Education/Training Program | DX: M76.31 Iliotibial band syndrome, right leg (principal); M70.61 Trochanteric bursitis, right hip; S76.011A Strain of muscle, fascia and tendon of right hip, initial encounter; X58.XXXA Exposure to other specified factors, initial encounter ==

== ENCOUNTER → 2021-12-21 13:55 | Outpatient (BNVA) | payer MEDICARE, SELFPAY | PROVIDERS: PCP Family Medicine; Referring Provider Family Medicine; Visit Provider Student in an Organized Health Care Education/Training Program | DX: M76.31 Iliotibial band syndrome, right leg (principal); M70.61 Trochanteric bursitis, right hip; S76.011A Strain of muscle, fascia and tendon of right hip, initial encounter; X58.XXXA Exposure to other specified factors, initial encounter ==

== ENCOUNTER 2022-02-01 14:27 | Outpatient (CLI) | payer MEDICARE, SELFPAY ==
--- NOTE | 2022-02-01 14:15 | DI.RAD_ITS ---
Exam(s) XR KNEE RT 3V AP,LAT,LEISA EXAM: XR KNEE RT 3V AP,LAT,LEISA CLINICAL HISTORY: KNEE PAIN. TECHNIQUE: 2D digital imaging was performed of the right knee. Three views obtained. AP, lateral, a nd merchant's views were obtained. COMPARISON: CR XR KNEE RT 3V AP,LAT,LEISA from 05/02/2021 FINDINGS: BONES: No acute fracture is present. No bony destructive lesion is seen. JOINTS: The knee is normally aligned. No joint effusion is seen. SOFT TISSUE: Normal. IMPRESSION: Unremarkable radiographs of the right knee. DATA REPOSITORY: RADIATION DOSE DELIVERED:
--- NOTE | 2022-02-01 14:15 | DI.RAD_ITS ---
Exam(s) XR HIP RT COMPLETE AP PELVIS EXAM: XR HIP RT COMPLETE AP PELVIS CLINICAL HISTORY: RIGHT HIP. TECHNIQUE: 2D digital imaging was performed of the right hip. Two images were obtained. AP pelvis a nd lateral right hip views were obtained. COMPARISON: CR XR hip RT complete AP pelvis from 09/20/2018 FINDINGS: BONES: No acute fracture is present. No bony destructive lesion is seen. There is again seen a bone i sland in the right sacrum. JOINTS: No dislocation present. Marked degenerative changes are seen in the right hip with joint spac e narrowing, subchondral sclerosis and cysts and periarticular spurring. SOFT TISSUE: Atherosclerosis is present. IMPRESSION: Marked osteoarthritis of the right hip. DATA REPOSITORY: RADIATION DOSE DELIVERED:
== END 2022-02-01 14:28 | disposition home or self-care (01) ==
LOC: DIORS 14:28
PROVIDERS: PCP Family Medicine; Referring Provider Family Medicine; Visit Provider Student in an Organized Health Care Education/Training Program
DX: M70.61 Trochanteric bursitis, right hip (principal); M76.31 Iliotibial band syndrome, right leg; M16.11 Unilateral primary osteoarthritis, right hip; S76.011A Strain of muscle, fascia and tendon of right hip, initial encounter; X58.XXXA Exposure to other specified factors, initial encounter
CPT/HCPCS: 73562; 99214; 73502

== ENCOUNTER → 2022-02-21 12:37 | Outpatient (BNVA) | payer MEDICARE, SELFPAY | PROVIDERS: PCP Family Medicine; Visit Provider Internal Medicine Cardiovascular Disease | DX: I48.91 Unspecified atrial fibrillation (principal); I44.7 Left bundle-branch block, unspecified; Z95.3 Presence of xenogenic heart valve | CPT/HCPCS: 93005; 99213 ==

== ENCOUNTER 2022-02-21 12:56 | Outpatient (CLI) | payer MEDICARE, SELFPAY ==
--- NOTE | 2022-02-21 12:45 | RT.EKG_ITS ---
APPROVED REPORT Exam: Resting ECG Reason for Exam: afib Patient Location: O HR:94 bpm ECG Measurements Heart Rate 94 AXIS IL 162 P 73 QRSd 143 QRS -22 QT 390 T 54 QTc 488 Conclusion Sinus rhythm...normal P axis, V-rate 50- 99 Left bundle branch block...QRSd>120, broad/notched R Baseline wander in lead(s) V5
== END 2022-02-21 12:57 | disposition home or self-care (01) ==
LOC: DI.CARD 12:57
PROVIDERS: PCP Family Medicine; Visit Provider Internal Medicine Cardiovascular Disease
DX: I48.91 Unspecified atrial fibrillation (principal); R94.31 Abnormal electrocardiogram [ECG] [EKG]; I44.7 Left bundle-branch block, unspecified
CPT/HCPCS: 93010

== ENCOUNTER 2022-02-27 01:31 | Outpatient (CLI) | payer MEDICARE, SELFPAY ==
[2022-02-27 13:14] LABS: ALT 21 U/L (14-59); AST 24 U/L (15-37); Albumin 3.8 g/dL (3.4-5.0); Alkaline Phosphatase 59 U/L (46-116); Anion Gap 7.2 mmol/L (3-11); BUN 22 mg/dL (7-18); Bilirubin, Total 0.3 mg/dL (0.2-1.0); CO2 29.8 mmol/L (21.0-32.0); CREATININE 1.2 mg/dL (0.55-1.02); Calcium 9.6 mg/dL (8.5-10.1); Chloride 103 mmol/L (98-107); Glucose 95 mg/dL (74-106); Potassium 4.7 mmol/L (3.5-5.1); Sodium 140 mmol/L (136-145); TSH (W/Ref FT4) 1.79 uIU/mL (0.36-3.74); Total Protein 7.5 g/dL (6.4-8.2)
[2022-02-27 14:39] LABS: Calculated LDL 92 mg/dL (<100); Cholesterol 180 mg/dL (<200); HDL Cholesterol 54 mg/dL (40-60); Triglyceride 172 mg/dL (<150)
== END 2022-02-27 01:32 | disposition home or self-care (01) ==
LOC: LOS 01:31
PROVIDERS: PCP Family Medicine; Visit Provider Family Medicine
DX: E03.9 Hypothyroidism, unspecified (principal); N28.9 Disorder of kidney and ureter, unspecified; Z95.3 Presence of xenogenic heart valve
CPT/HCPCS: 36415; 80053; 80061; 84443

== ENCOUNTER → 2022-04-05 01:35 | Outpatient (CLI) | payer MEDICARE, SELFPAY ==
--- NOTE | 2022-04-05 07:45 | DI.US_ITS ---
APPROVED REPORT EXAM: Comprehensive 2D, Doppler, and color-flow Echocardiogram Patient Location: Out-Patient [employer] Mechanic: Alpa Arceo RDCS (AE) Indications: Bioprosthetic Aortic valve replacement Other Information Study Quality: Adequate Conclusion Normal left ventricular wall thickness and chamber size. Estimated ejection fraction is 55 to 60%. Wall motion is normal Normal right ventricular size and systolic function Both atria are normal in size There is a bioprosthetic aortic valve, normal function, mean gradient 7 mmHg Moderate to severe mitral annular calcification. Restricted mitral leaflet motion. Mild to moderate mitral regurgitation. Mild mitral stenosis Normal tricuspid valve with mild to moderate regurgitation. Estimated right ventricular systolic pre ssure is 28 mmHg Wall motion Left Ventricle The left ventricle is normal size. The left ventricular systolic function is normal. The left ventric ular ejection fraction is within the normal range. There is normal left ventricular wall thickness. T here is normal LV segmental wall motion. There is no ventricular septal defect visualized. LVEF is 55 -60%. Right Ventricle The right ventricle is normal size. The right ventricular systolic function is normal. The RVSP is 28 .4 mmHg. Atria The left atrium size is normal. The right atrium size is normal. The interatrial septum is intact wit h no evidence for an atrial septal defect. Aortic Valve There is no aortic valvular stenosis. No aortic regurgitation is present. Bioprosthetic aortic valve is present. Mitral Valve Moderate to severe mitral annular calcification Mitral valve leaflets have restricted excursion. mitr al annular calcification. Mild mitral stenosis. Mild to moderate mitral regurgitation. Tricuspid Valve The tricuspid valve is normal in structure. There is no tricuspid valve stenosis. Mild to moderate tr icuspid regurgitation. Pulmonic Valve The pulmonary valve is normal in structure. There is no pulmonic valvular stenosis. Trace pulmonic re gurgitation. Great Vessels The aortic root is normal in size. The ascending aorta is normal in size. Aortic arch is normal in ca liber. IVC is normal in size and collapses >50% with inspiration. Pericardium There is no pericardial effusion. 2D Dimensions IVSD d PLAX 1.02 cm F: 0.6-1.0 LV Vol A2C d MOD 72.1 mL LVPW d PLAX 1.00 cm F: 0.6 - 1.0 LV Vol A4C d MOD 66.9 mL LVID d PLAX 4.14 cm F: 3.8 - 5.2 LA vol/ BSA A2C s A-L 22.4 mL/m2 LVDs 2.95 cm F: 2.2 - 3.5 LA vol/ BSA A4C s A-L 16.1 mL/m2 Ao Root d 2.24 cm F: 2.7 - 3.3 LA Vol/ BSA Biplane s A-L 19.0 mL/m2 RA Area A4C 12.75 cm2 LA Area A4C s MOD 12.90 cm2 RA Vol/ BSA A4C s A-L 14.7 mL/m2 LA Area A2C s MOD 15.18 cm2 Ao Asc Diam d 2.57 cm F: 2.3 - 3.1 LV EF A4C MOD 55.4 % LV EF Teichholz 54.7 % LV EF A2C MOD 55.0 % LVEF (Lares's) 55.91 % F: 54 - 74 LV EF Biplane MOD 55.9 % LV Volume 55.15 mL F: 46 - 106 SV 39.55 mL LV Volume Index 30.81 mL/m2 F: 29 - 61 SV Index 22.11 mL/m2 LV Vol Biplane MOD 70.7 mL FS 28.00 % M-Mode TAPSE 1.11 cm (M/F) >1.7 LV Diastology MV E' medial 0.063 (>0.07 m/s) MV E' lateral 0.104 (>0.1 m/s) Aortic Valve LVOT Area 2.70 cm2 AoV Area Vmax 1.81 cm2 LVOT Vmax 1.13 m/s AoV Area/ BSA (Vmax) 1.01 cm2/m2 LVOT Mean Christiano. 0.76 m/s ALICIA Mean Christiano. 1.61 cm2 LVOT Peak Grad 5.1 mmHg ALICIA Mean Christiano. Index 0.90 cm2/m2 LVOT Mean Grad 2.6 mmHg LVOT VTI 0.221 m LVOT Diam s 1.85 cm AoV Vmax 1.68 m/s Velocity Ratio 0.67 AoV Mean Christiano. 1.27 m/s AoV Peak Grad 11.2 mmHg LVOT SV 59.50 mL AoV Mean Grad 7.0 mmHg AoV VTI 0.332 m AoV Area VTI 1.79 cm2 AoV Area/ BSA (VTI) 1.00 cm/m2 Mitral Valve MV DT 176 (160-240 msec) MV PHT 51 msec MV Area PHT 4.30 cm2 MV VTI 0.384 m MV Area VTI 1.55 (4.0-6.0 cm2) Pulmonary Valve PV Vmax 0.75 (0.5-1.5 m/s) RVOT Peak Gr. 1.09 mmHg PV Peak Grad 2.2 mmHg RVOT Mean Gr. 0.50 mmHg PV Mean Grad 1.3 mmHg RVOT VTI 0.099 m PV VTI 0.163 m RVOT Vmax 0.52 m/s Tricuspid Valve TR Peak Grad 25.3 mmHg TR Vmax 2.52 m/s RA Pressure 3.00 mmHg RVSP (TR) 28.4 mmHg
== END ==
PROVIDERS: PCP Family Medicine; Visit Provider Internal Medicine Cardiovascular Disease
DX: Z95.3 Presence of xenogenic heart valve (principal); I34.8 Other nonrheumatic mitral valve disorders; I34.0 Nonrheumatic mitral (valve) insufficiency
CPT/HCPCS: 93306

== ENCOUNTER → 2022-04-05 01:36 | Outpatient (CLI) | payer MEDICARE, SELFPAY ==
--- NOTE | 2022-04-05 07:45 | DI.MRI_ITS ---
Exam(s) MR LUMBAR SPINE WO EXAM: MR LUMBAR SPINE WO CLINICAL HISTORY: LOW BACK PAIN,RT UPPER LEG PAIN,SPINAL STENOSIS,M48.061. TECHNIQUE: Multiplanar multisequence MRI of the Lumbar spine was performed. COMPARISON: CR XR LUMBAR SPINE COMPLETE from 03/11/2021 FINDINGS: Recent plain films listed above reveal mild scoliosis convex left. Epicenter is at L4-5 right side w here there is asymmetric advanced narrowing of the right side of this disc space (when compared to th e left side of the same disc space). See below. Unremarkable appearing sacroiliac joints. Degenera tive changes right hip. Conus medullaris is at normal level. There is no evidence of conus mass nor subjacent clumping of in trathecal nerve roots to suggest arachnoiditis. Distal thecal sac is at S2 level. 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 Bones:There are no fractures nor ominous osseous lesions in the lumbar vertebral bodies and visualize d sacrum. With respect to the individual levels... T12-L1: Unremarkable L1-2: Normal disc height and signal. No disc herniation nor central canal stenosis.No foraminal steno sis L2-3: Normal disc height. There is a small annular tear in the left lateral aspect of the annulus bu t without a disc herniation evident. No disc herniation nor central canal stenosis.No foraminal sten osis.No facet arthropathy. L3-4: Normal disc height. There is central subligamentous mild disc bulge which slightly flattens th e anterior aspect of the thecal sac.Central canal dimensions are lower normal. No large disc herniat ion. No prominent central canal stenosis and there is no foraminal stenosis at this level. Facets u nremarkable. L4-5: This level exhibits advanced disc space narrowing which is somewhat more prominent on the right than the left side of the disc space where there are also lateral right osteophytes. Broad annular bulging noted with mild degenerative anterolisthesis L4 upon L5. There is severe central spinal david l stenosis at this level due to short AP dimensions the pedicles, the annular bulging associated with a mild anterolisthesis and the facet arthrosis. There is no prominent ligamentum flavum hypertrophy . On the right side there is vertical foraminal stenosis with some impingement of the exiting right nerve root between the overlying right L4 pedicle and subjacent annular bulging. Slightly lesser for aminal narrowing on the opposite-left side is noted. Moderate degenerative changes are noted in both facet joints. L5-S1: This level exhibits relatively preserved disc height. Mild annular bulging but no prominent d isc herniation. Central canal dimensions are lower normal. There is no significant foraminal stenos is. No listhesis at this level. Mild facet arthrosis. Soft tissues: Cyst noted in the right kidney. IMPRESSION: 1. Most significant findings are at L4-5 level where there is severe central spinal canal stenosis, a s detailed above. Also an element of foraminal stenosis bilaterally, right more so than left at this level. 2. There is a central subligamentous disc bulge at L3-4 level but not causing significant spinal david l stenosis and there is no foraminal stenosis evident at this level. 3. Other findings as above. DATA REPOSITORY:
== END ==
PROVIDERS: PCP Family Medicine; Visit Provider Family Medicine
DX: M48.061 Spinal stenosis, lumbar region without neurogenic claudication (principal); M51.26 Other intervertebral disc displacement, lumbar region
CPT/HCPCS: 93306; 72148

== ENCOUNTER 2022-06-07 16:11 | Outpatient (CLI) | payer MEDICARE, SELFPAY ==
[2022-06-07 16:21] VITALS: BP 133/75; PULSE 95; RESP 20; TEMP 36.8; O2SAT 97
[2022-06-07 17:16] VITALS: PULSE 106; O2SAT 98
[2022-06-07] MEDS: Lidocaine 2% Pres-Free 5 ML VIAL IJ (17:36)
[2022-06-07] MEDS: methylPREDNISolone ACETATE 40 MG/ML VIAL IJ (17:36)
--- NOTE | 2022-06-08 13:17 | PDOC.PAIN_ITS ---
Date of service: 06/07/22 Time of Service: 13:28 Pain Clinic Procedure Note Procedure Note Procedure Note: ULTRASOUND GUIDED RIGHT ILIOTIBIAL BAND INJECTIONS Pre-Procedural Evaluation: Fiorella Coleman has been referred to the [facility] for an Ultrasound Guided right Iliotibial Band injection for a chief complaint of right lateral thigh pain. Pre-procedure Pain Score: 6/10 Dx: Right Iliotibial band syndrome Patient was interviewed and the medical record reviewed. There were no medical, pharmacologic, radiographic, or other structural contraindications to preforming an ultrasound guided injection. Risks and expected side effects as well as potential benefits of the procedure were reviewed. The patient consent form was signed and witnessed. Standard time-out procedure was performed. The use of direct ultrasound visualization of the needle (rather than a non- guided injection) was required to increase patient safety by excluding inadvertent intramuscular, intratendinous, or intraneural needle placement and minimizing bleeding by avoiding osteochondral or vascular injury from the needle. Additionally, the increased accuracy of placement may increase clinical effectiveness and will allow higher diagnostic specificity when evaluating effectiveness of this injection. Procedure Description: The patient was placed in the lateral recumbant position and automated blood pressure cuff and pulse oximeter applied for monitoring during the procedure and recorded in the medical record. Pre-injection ultrasound scanning of the area of interest was performed using the linear transducer, identifying relevant anatomy, landmarks, and neurovascular structures allowing for optimal needle path. The site was then prepared in the usual sterile fashion, using thorough Chlorhexadine preparation of the skin and sterile draping. The same ultrasound transducer was then passed into the sterile field using sterile probe cover and sterile ultrasound gel. The injection target was again visualized. Skin and subcutaneous tissues were anesthetized with 3 mL of 1% Lidocaine. A 22 G Pajunk 3.5 inch needle was placed under live ultrasound guidance, using an in-plane approach, to the target area. After visualization of the needle tip at the target area. 1/3 cc of Depomedrol (80 mg/cc) was delivered after negative aspiration for blood. This was followed by 1 cc of 1% Lidocaine. Next I punctured the IT Band numerous times with the Pajunk needle. This was repeated at 3 sites on the right IT band. Ultrasound images were captured and stored for documentation purposes. Post-procedure Pain Score:6/10 Vital signs were stable throughout the procedure and were as recorded in the docflowsheet by the nursing staff. Follow up plans and appointments were discussed with the patient.Post procedure instruction was given as documented in nursing documentation and having met discharge criteria, they were discharged from the [facility]. COMMENTS: She will take it easy today and tomorrow. She can start stretching the area in 2 days (Sunday). Dc Echevarria Do, MPH [facility]
== END 2022-06-07 16:12 | disposition home or self-care (01) ==
LOC: PC 16:11
PROVIDERS: PCP Family Medicine; Visit Provider Preventive Medicine Occupational Medicine
DX: M79.651 Pain in right thigh (principal); M76.32 Iliotibial band syndrome, left leg; M79.18 Myalgia, other site
CPT/HCPCS: 20552; J1030

== ENCOUNTER → 2022-07-12 02:37 | Outpatient (CLI) | payer MEDICARE, SELFPAY ==
--- NOTE | 2022-07-12 | DI.CT_ITS ---
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 TECHNIQUE: Imaging Protocol: Axial computed tomography images with coronal and sagittal reformatted images were created and reviewed. CONTRAST MATERIAL: Intravenous: Omnipaque 350 Contrast volume:structured data in ml Contrast route:I V - Oral: yes / no COMPARISON: No exams were available for comparison FINDINGS: LEFT temporal Bone: The cochlea, vestibule, vestibular and cochlear aqueduct are normal. There is a row vail of the scutum and there is abnormal soft tissue density in the anterior superior Prussak's space measuring approximately 3 x 2 x 3 millimeters. Soft tissue density does not extend i nto the aditus ad antrum and the ipsilateral mastoid air cells are aerated. There is erosion of the ipsilateral middle ear ossicles with abnormal thickening and calcification of the tensor tympani. Th ickening and calcification of this to stapedius tendon. There is also thickening of the pars flaccid a and the pars tense a is retracted and thickened-calcified. The external auditory canal and mastoid air cells are normal. The carotid canal and jugular foramen a re within normal limits. Right temporal Bone: The cochlea, vestibule, vestibular and cochlear aqueduct are normal. The facial nerve canal is well m aintained. The semicircular canals are unremarkable. There is no evidence of dehiscence. The interna l auditory canal is within normal limits. The scutum and tegmen are within normal limits. There is no evidence of otosclerosis. The external auditory canal and mastoid air cells are normal. The carotid canal and jugular foramen a re within normal limits. The temporomandibular joint is unremarkable. IMPRESSION: There are findings in the left middle ear as described above which are most probably related to chron ic postinflammatory changes involving middle ear ossicles and there is also a 3 x 2 x 3 millimeters s oft tissue density in the anterior aspect of Prussak's space which probably represents cholesteatoma or fibrosis. There is erosion of the ipsilateral left middle ear ossicles as well as the ipsilateral scutum. RADIATION DOSE DELIVERED: 332.75mGy.cm Total DLP DATA REPOSITORY: All CT scans at this facility are submitted to the National Radiology Data Registry (NRDR) Dose Index Registry (DIR) with the [employer] (ACR). RADIATION OPTIMIZATION: All CT scans at this facility use at least one of these dose optimization te chniques: automated exposure control; mA and/or kV adjustment per patient size (includes targeted exa ms where dose is matched to clinical indication); or iterative reconstruction.
--- NOTE | 2022-07-12 18:29 | DI.VRAD_ITS ---
PROCEDURE INFORMATION: Exam: CT Temporal Bones Without Contrast. 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 Radiation optimization: All CT scans at this facility use at least one of these dose optimization techniques: automated exposure control; mA and/or kV adjustment per patient size (includes targeted exams where dose is matched to clinical indication); or iterative reconstruction. COMPARISON: CR XR CERVICAL SPINE COMP 4-5V 09/20/2020 1:45 PM FINDINGS: Right inner ear: Normal. Right ossicles and middle ear: Normal. The middle ear ossicles are intact. Right external auditory canal: Normal. Right facial nerve canal: Normal. Right jugular foramen: No jugular dehiscence. Right carotid canal: No aberrant carotid canal. Right mastoid air cells: Normal. No mastoid effusions. Left inner ear: Normal. Left ossicles and middle ear: Scutum is eroded with small focus of elongated soft tissue density measuring 3.5 x 2.3 x 3 mm tracking in the anterior superior Prussak's space distribution which could represent fibrosis or small cholesteatoma . Eroded and demineralized appearance of the neck, lateral process, and manubrium of the malleus, incus short process, and incus long process with asymmetric thickening and partial calcification of tensor tympani. Superior and lateral malleal ligaments appears intact. Asymmetric thickening and calcification of the stapedius tendon. Pars flaccida appears thickened. Pars tensa appears retracted and thickened/calcified. Left external auditory canal: Normal. Left facial nerve canal: Normal. Left jugular foramen: No jugular dehiscence. Left carotid canal: No aberrant carotid canal. Left mastoid air cells: Normal. No mastoid effusions. Brain: Visualized intracranial contents are unremarkable. Orbital cavities: Prior bilateral ocular lens extraction. Soft tissues: Unremarkable. Other findings: Moderate calcific atherosclerosis. IMPRESSION: 1. 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 Mild thickening/calcification of stapedius and tensor tympani as well. These presumably represent chronic postinflammatory changes. 2. Very small 3.5 x 2.3 x 3 mm focus of soft tissue density tracking in the anterior portion of Prussak's space could represent a very small residual cholesteatoma or simply mildly nodular fibrosis. MRI might differentiate these possibilities although the very small size limits characterization. Dictated and Authenticated by: Remy Saha MD. Ordering:BLAISE Andrews MD
== END ==
PROVIDERS: PCP Family Medicine; Visit Provider Physician Assistant
DX: H60.42 Cholesteatoma of left external ear (principal); H74.8X2 Other specified disorders of left middle ear and mastoid; H93.8X2 Other specified disorders of left ear
CPT/HCPCS: 70480

== ENCOUNTER 2022-12-07 07:50 | Outpatient (CLI) | payer MEDICARE, SELFPAY ==
--- NOTE | 2022-12-07 08:00 | DI.RAD_ITS ---
Exam(s) XR PAIN CLINIC LUMBAR SP 2V EXAM: XR PAIN CLINIC LUMBAR SP 2V CLINICAL HISTORY: DX: Lumbar Radiculopathy TECHNIQUE: 2D and realtime digital imaging was performed. CONTRAST MATERIAL: Refer to procedure report. COMPARISON: No exams were available for comparison FINDINGS: Fluoroscopy was provided for Dr. Echevarria during the performance of a lumbar epidural steroid injection. Please refer to the procedure report for complete details. Ka,r=9.1 mGy IMPRESSION:
[2022-12-07 08:40] VITALS: BP 116/66; PULSE 85; RESP 20; TEMP 36.7; O2SAT 98
[2022-12-07] MEDS: Dexamethasone Sod. Phos./Pres-Free 10 MG/ML VIAL IJ (09:43)
[2022-12-07] MEDS: Omnipaque 240 MG/ML 50 ML BTL IJ (09:43)
--- NOTE | 2022-12-07 09:43 | PDOC.PAIN_ITS ---
Date of service: 12/07/22 Time of Service: 09:53 Pain Managment Procedure Note Procedure Note Procedure Note: LUMBAR / SACRAL TRANSFORAMINAL INJECTION Fiorella Coleman has been referred to the [facility] Management Center for a transforaminal nerve root block and steroid injection. COMMENTS: I previously evaluated her on 11/30/2022. Dx: Lumbosacral radiculopathy Pre-procedure pain VAS was 7/10 Patient was interviewed and the medical record reviewed. There were no medical, pharmacologic, radiographic or other structural contraindications to attempting fluoroscopically guided transforaminal nerve root block and epidural steroid injection. Risks and expected side effects as well as potential benefit of the procedure were reviewed and voiced concerns addressed. The printed consent form was signed and witnessed. Standard time-out procedure was performed. Patient was placed in the prone position on the fluoroscopy table and automated blood pressure cuff and pulse oximeter applied. Fluoroscopy was utilized to identify the right L5 neural foramen between L5 and S1 . A skin shruthi was made for the needle insertion site. A Chlorhexadine prep was carried out, and sterile drapes were applied. Local anesthesia was achieved in the skin and subcutaneous tissues. A 22 gauge 3.5 spinal needle was then inserted, advanced with fluoroscopic guidance into the neural foramen, confirmed on the lateral view. After negative aspiration, 2 ml of Omnipaque 240 was injected confirming position in A/P and lateral views. This showed a good spread of dye transforaminally into the epidural space. There was no vascular update with contrast injection under continuous fluoroscopy and digital substraction. 15 mg of Dexamethasone was injected, followed by 0.5 ml of 1% Xylocaine flush for the nerve root block, as well. There was no unusual discomfort expressed.The needle was withdrawn. The patient tolerated the procedure well. A Band-Aid was applied. Vital signs were stable throughout the procedure and were as recorded in nursing records. If given, dosages of intravenous drugs for anxiolysis and analgesia were documented in nursing records. Follow up plans and appointments were discussed. Post procedure instruction was given as documented in nursing records and patient was discharged in the care of an identified regional truck driver. COMMENTS:Post-procedure pain VAS was 0/10. If this procedure gives her at least 50% pain improvement and/or 50% functional improvement, she can have this procedure up to 4 times per 12 months. Dc Echevarria Do, MPH [facility] CC: Tamie Mary MD, DC
[2022-12-07 09:47] VITALS: BP 138/64; PULSE 93; RESP 12; O2SAT 100
== END 2022-12-07 07:51 | disposition home or self-care (01) ==
LOC: PC 07:50
PROVIDERS: PCP Family Medicine; Visit Provider Preventive Medicine Occupational Medicine
DX: M54.17 Radiculopathy, lumbosacral region (principal); M54.50 Low back pain, unspecified
CPT/HCPCS: 64483; 72100; Q9967

== ENCOUNTER 2023-02-15 13:11 | Outpatient (CLI) | payer MEDICARE, SELFPAY ==
--- NOTE | 2023-02-15 13:00 | RT.EKG_ITS ---
APPROVED REPORT Exam: Resting ECG Reason for Exam: nausea Patient Location: O HR:89 bpm ECG Measurements Heart Rate 89 AXIS PA 171 P 67 QRSd 142 QRS -29 QT 404 T 77 QTc 492 Conclusion Sinus rhythm...normal P axis, V-rate 50- 99 Left atrial enlargement...P, P'>60mS, <-0.15mV V1 Left bundle branch block...QRSd>120, broad/notched R
== END 2023-02-15 13:12 | disposition home or self-care (01) ==
LOC: DI.CM 13:12
PROVIDERS: PCP Family Medicine; Visit Provider Physician Assistant
DX: R07.89 Other chest pain (principal); R11.0 Nausea
CPT/HCPCS: 93010

== ENCOUNTER 2023-02-15 14:37 | Outpatient (REF) | payer MEDICARE, SELFPAY ==
[2023-02-15 20:52] LABS: Abs Immature Grans 0.03 10^3/uL (0.0-0.06); Absolute Basophil Count 0.06 10^3/uL (0.0-0.2); Absolute Eosinophil Count 0.09 10^3/uL (0.0-0.7); Absolute Lymphocyte Count 2.41 10^3/uL (1.2-3.4); Absolute Neutrophil Count 5.18 10^3/uL (1.2-6.7); Basophils % 0.7; Eosinophils % 1.1; HCT 40.6 % (36.0-46.0); HGB 13.2 g/dL (11.2-15.7); Immature Grans % 0.4; Lymphocytes % 28.8; MCH 29.1 pg (27.0-33.0); MCHC 32.5 % (32.0-36.0); MCV 90 fL (80-95); MPV 10.4 fL (8.0-11.0); Monocytes % 7.2; Neutrophils % 61.8; Platelet Count 288 10^3/uL (130-400); RBC 4.53 10^6/uL (3.93-5.22); RDW 12.9 % (11.7-14.6); RDW-SD 42.6 fL; WBC 8.37 10^3/uL (4.4-10.8)
[2023-02-15 21:14] LABS: Anion Gap 11.6 mmol/L (3-11); BUN 15 mg/dL (7-18); CO2 26.4 mmol/L (21.0-32.0); CREATININE 1.3 mg/dL (0.55-1.02); Calcium 9.2 mg/dL (8.5-10.1); Chloride 101 mmol/L (98-107); Estimated GFR 40.55 (mL/min/1.73m2); Glucose 119 mg/dL (74-106); Sodium 139 mmol/L (136-145); TSH (W/Ref FT4) 2.16 uIU/mL (0.36-3.74)
== END 2023-02-15 14:38 | disposition home or self-care (01) ==
LOC: LBN 14:37
PROVIDERS: PCP Family Medicine; Visit Provider Physician Assistant
DX: R11.0 Nausea (principal); R53.83 Other fatigue; I49.9 Cardiac arrhythmia, unspecified; R07.89 Other chest pain; N39.0 Urinary tract infection, site not specified
CPT/HCPCS: 80048; 84443; 85025

== ENCOUNTER 2023-02-16 01:06 | Outpatient (CLI) | payer MEDICARE, SELFPAY ==
--- NOTE | 2023-02-16 07:45 | DI.US_ITS ---
Exam(s) US ABDOMEN EXAM: US ABDOMEN CLINICAL HISTORY: nausea, R11.0 TECHNIQUE: Ultrasound abdomen performed using standard protocol. COMPARISON: CT CT ABDOMEN PELVIS W from 03/31/2020 FINDINGS: LIVER: Normal size and echogenicity. No focal liver lesions are seen.. GALLBLADDER: Mildly contracted. No evidence of cholelithiasis. No evidence of wall thickening. No pe richolecystic fluid identified. DEJESUS'S SIGN: Negative. BILIARY SYSTEM: No intrahepatic or extrahepatic biliary ductal dilation. KIDNEYS: Kidneys are symmetric in size. No evidence of renal calculi. No evidence of hydronephrosis. Stable right renal cyst. No suspicious renal mass identified. PANCREAS: Normal where visualized. SPLEEN: Not enlarged. ABDOMINAL AORTA AND IVC: Visualized portions normal caliber. ASCITES: None seen. IMPRESSION: No acute abnormality. DATA REPOSITORY:
== END 2023-02-16 01:26 ==
LOC: DI 01:06
PROVIDERS: PCP Family Medicine; Visit Provider Physician Assistant
DX: R11.0 Nausea (principal)
CPT/HCPCS: 76700

== ENCOUNTER 2023-02-25 09:22 | Emergency (ER) | payer MEDICARE, SELFPAY ==
[2023-02-25] VITALS (44 sets, daily range): BP systolic 123–147; BP diastolic 52–81; PULSE 85–110; RESP 9–26; TEMP 36.1; O2SAT 95–99
--- NOTE | 2023-02-25 09:15 | RT.EKG_ITS ---
APPROVED REPORT Exam: Resting ECG Reason for Exam: chest pain Patient Location: E HR:100 bpm ECG Measurements Heart Rate 100 AXIS MT 173 P 72 QRSd 144 QRS -28 QT 383 T 95 QTc 494 Conclusion Sinus tachycardia...rate 100's Left bundle branch block...QRSd>120, broad/notched R, prexisting on prior EKGs no ST segement or T wave abnormalities to suggest occlusive RI
[2023-02-25 10:42] LABS: Abs Immature Grans 0.02 10^3/uL (0.0-0.06); Absolute Basophil Count 0.04 10^3/uL (0.0-0.2); Absolute Eosinophil Count 0.05 10^3/uL (0.0-0.7); Absolute Lymphocyte Count 1.74 10^3/uL (1.2-3.4); Absolute Monocyte Count 0.42 10^3/uL (0.1-0.8); Absolute Neutrophil Count 4.42 10^3/uL (1.2-6.7); Basophils % 0.6; Eosinophils % 0.7; HCT 39.3 % (36.0-46.0); HGB 12.9 g/dL (11.2-15.7); Immature Grans % 0.3; MCH 29.3 pg (27.0-33.0); MCHC 32.8 % (32.0-36.0); MCV 89 fL (80-95); MPV 9.8 fL (8.0-11.0); Monocytes % 6.3; Neutrophils % 66.1; Platelet Count 281 10^3/uL (130-400); RBC 4.41 10^6/uL (3.93-5.22); RDW 12.8 % (11.7-14.6); RDW-SD 42.3 fL; WBC 6.69 10^3/uL (4.4-10.8)
--- NOTE | 2023-02-25 11:00 | DI.CT_ITS ---
Exam(s) CT ABDOMEN PELVIS W EXAM: CT ABDOMEN PELVIS W CLINICAL HISTORY: nausea LLQ pain. TECHNIQUE: Imaging Protocol: Axial computed tomography images with coronal and sagittal reformatted images were created and reviewed CONTRAST MATERIAL: Intravenous: Omnipaque-350 100cc Oral: None COMPARISON: CT CT ABDOMEN PELVIS W from 03/31/2020 FINDINGS: VISUALIZED LUNG BASES: Sternotomy wires. Mild scarring in the right lung base. No pleural effusions .. Heavily calcified mitral valve. ABDOMEN: There is no ascites. LIVER: There are no focal hepatic lesions evident. No dilated intrahepatic ducts. GALLBLADDER/BILIARY: No obvious gallbladder pathology. CBD is not dilated. PANCREAS: Duodenal diverticulum noted projected over the pancreatic head. No significant pancreatic lesions identified. No dilated pancreatic duct. Uncinate process unremarkable. SPLEEN: Spleen is not enlarged. No obvious intrasplenic lesions. Splenic and portal veins are paten t. ADRENALS: There are no significant adrenal masses. KIDNEYS:There is a nonobstructive 2 millimeter calculus in the left kidney. No other focal left kidn ey findings. No hydronephrosis. Cyst in the right kidney again noted which measures 4.2 by 3.3 cm a nd does not require further workup. Tiny benign 5 millimeter cyst in the medial cortex of the right kidney also noted. No solid renal lesions.. ABDOMINAL AORTA: Calcified but not enlarged. LYMPH NODES:There is no retroperitoneal nor paraaortic adenopathy. ABDOMINAL WALL: No evidence of significant anterior abdominal wall nor inguinal hernia. GI: There is no evidence of bowel obstruction, free air, nor abscess. PELVIS: GI: No evidence of appendicitis.There is extensive diverticulosis of the sigmoid. There is a small a mount of free fluid in left side of the the pelvis just posterior to the sigmoid and lateral to the r ectum. May be related to subtle diverticulitis. No obvious colitis pattern. Diverticuli are seen u p to the splenic flexure level here. No evidence of small-bowel obstruction. Heavily calcified mese nteric lymph node in the right-side of the pelvis noted which measures 1.5 by 1.1 cm. LYMPH NODES: No adenopathy around the aortic bifurcation nor along the iliac chains and there is no i nguinal adenopathy. REPRODUCTIVE: Uterus is surgically absent. No abnormal adnexal masses. URINARY BLADDER: No calculi nor obvious masses evident OSSEOUS: No fractures and no significant osseous lesions. Chronic disc space narrowing L4-5 level. Milder disc space narrowing L5-S1. No listhesis. IMPRESSION: 1. There is extensive sigmoid diverticulosis. Small amount of fluid in the left side of the pelvis n oted. May be related to subtle diverticulitis of the sigmoid. 2. Uterus is surgically absent. No abnormal adnexal masses. 3. There is a nonobstructive 2 millimeter calculus in the left kidney. 4. Other findings as above. RADIATION DOSE DELIVERED: 1,032.88mGy.cm Total DLP DATA REPOSITORY: All CT scans at this facility are submitted to the National Radiology Data Registry (NRDR) Dose Index Registry (DIR) with the [employer] (ACR). RADIATION OPTIMIZATION: All CT scans at this facility use at least one of these dose optimization te chniques: automated exposure control; mA and/or kV adjustment per patient size (includes targeted exa ms where dose is matched to clinical indication); or iterative reconstruction.
[2023-02-25 11:01] LABS: ALT 18 U/L (14-59); AST 18 U/L (15-37); Albumin 3.9 g/dL (3.4-5.0); Alkaline Phosphatase 57 U/L (46-116); Anion Gap 7.3 mmol/L (3-11); BUN 13 mg/dL (7-18); Bilirubin, Total 0.5 mg/dL (0.2-1.0); CO2 27.7 mmol/L (21.0-32.0); CREATININE 1.3 mg/dL (0.55-1.02); Calcium 9.4 mg/dL (8.5-10.1); Chloride 103 mmol/L (98-107); Estimated GFR 40.55 (mL/min/1.73m2); Glucose 114 mg/dL (74-106); Lipase 41 U/L (16-77); Magnesium 2.2 mg/dL (1.8-2.4); Potassium 4.6 mmol/L (3.5-5.1); Sodium 138 mmol/L (136-145); Total Protein 7.6 g/dL (6.4-8.2); Troponin I < 50 ng/L (<or=60)
[2023-02-25] MEDS: Normal Saline 500 ML IV (11:22)
[2023-02-25] MEDS: Prochlorperazine 5 MG TAB PO (11:22)
[2023-02-25] MEDS: Normal Saline - Diluent 50 ML VIAL IJ (11:48)
[2023-02-25] MEDS: Normal Saline Flush 10 ML SYR IVP (11:50)
[2023-02-25] MEDS: Omnipaque 350 MG/ML 100 ML BTL IJ (11:50)
--- NOTE | 2023-02-25 12:40 | DI.VRAD_ITS ---
PROCEDURE INFORMATION: Exam: CT Abdomen And Pelvis With Contrast Exam date and time: 02/25/2023 11:57 AM Age: 82 years old Clinical indication: Other: Nausea, llq pain TECHNIQUE: Imaging protocol: Computed tomography of the abdomen and pelvis with contrast. Radiation optimization: All CT scans at this facility use at least one of these dose optimization techniques: automated exposure control; mA and/or kV adjustment per patient size (includes targeted exams where dose is matched to clinical indication); or iterative reconstruction. Contrast material: OMNIPAQUE 350; Contrast volume: 100 ml; Contrast route: INTRAVENOUS (IV); COMPARISON: CT ABDOMEN PELVIS W 03/31/2020 9:23 AM FINDINGS: Pleural spaces: Trace right-sided pleural fluid. Liver: The liver is normal in size and contour. Gallbladder and bile ducts: The gallbladder is surgically absent. Pancreas: The pancreas appears normal. Spleen: The spleen appears normal. Adrenal glands: The adrenals appear normal. Kidneys and ureters: Fluid density simple appearing thin walled cyst in the interpolar region of the right kidney. The kidneys enhance symmetrically and empty into non-dilated ureters. Minimal scarring along the posterior interpolar region of the left kidney. Stomach and bowel: The stomach appears unremarkable. Small air and fluid-filled duodenal diverticula noted. The small bowel loops are not abnormally dilated. The large bowel loops are not abnormally dilated. Colonic diverticulosis with questionable mild acute diverticulitis in the sigmoid colon in the left lower quadrant. Appendix: No signs of appendicitis. Intraperitoneal space: Minimal free fluid in the dependent portion of the pelvis, of indeterminate etiology. Prominent calcification in the mesentery (axial series 5, image 492), unchanged from prior exam in 2019, likely of no clinical significance. Vasculature: The aorta is nonaneurysmal. The IVC appears normal. Lymph nodes: There are no enlarged lymph nodes. Urinary bladder: The bladder is distended and demonstrates no focal contour abnormality. Reproductive: Unremarkable as visualized. Bones/joints: Multilevel degenerative changes in the spine. Prominent degenerative changes in the right hip joint. Soft tissues: Unremarkable. IMPRESSION: 1. Colonic diverticulosis with questionable mild acute diverticulitis in the sigmoid colon. 2. Minimal free fluid in the dependent portion of the pelvis. Dictated and Authenticated by: Dc Gardner MD. Ordering:MARY KATE Gomes MD
[2023-02-25 14:02] LABS: Troponin I < 50 ng/L (<or=60)
--- NOTE | 2023-02-25 14:25 | ED.GENADUL_ITS ---
Discharge Plan Disposition Patient Disposition: Home Condition: Improving Discharge Details Clinical Impression: Diverticulitis Primary Care Provider: Tamie Mary ED Provider: Eliseo Burrell Home Meds and New Rx's Prescriptions: New amoxicillin-pot clavulanate 875-125 mg tablet 1 tab PO Q12H 7 Days Qty: 14 0RF prochlorperazine maleate [Compazine] 5 mg tablet 5 mg PO TID PRN (Reason: nausea and vomiting) Qty: 10 0RF Continued diazepam [Valium] 5 mg tablet 5 mg PO BID MDD 2 PRN (Reason: anxiety) Qty: 90 1RF Rx Instructions: 3 month supply furosemide 40 mg tablet 40 mg PO DAILY Qty: 90 3RF metoprolol succinate 50 mg tablet extended release 24 hr 50 mg PO DAILY Qty: 90 3RF potassium chloride 20 mEq tablet extended release 20 meq PO DAILY Qty: 90 5RF rizatriptan [Maxalt-GRAIN MERCHANDISING MANAGER] 10 mg tablet,disintegrating 10 mg PO BID PRN (Reason: migraine headache) Qty: 5 0RF simvastatin 40 mg tablet 40 mg PO QPM Qty: 90 4RF lisinopril 20 mg tablet 20 mg PO DAILY Qty: 90 4RF ondansetron HCl 4 mg tablet 4 mg PO Q8H PRN (Reason: nausea and vomiting) Qty: 20 0RF Aspirin/Acetaminophen/Caffeine [Excedrin Extra Strength Caplet] 1 EACH tablet 2 ea PO DAILY multivitamin [Daily Multiple] 1 EACH tablet 1 ea PO DAILY omeprazole 20 mg capsule,delayed release(DR/EC) 20 mg PO BID Qty: 180 4RF amoxicillin 500 mg tablet 2,000 mg PO ONCE Qty: 16 2RF Rx Instructions: take 1 hour before procedure pregabalin [Lyrica] 50 mg capsule 50 mg PO BID Qty: 60 4RF tramadol 50 mg tablet 50 mg PO Q8H PRN (Reason: pain) Qty: 21 4RF levothyroxine 50 mcg tablet 50 mcg PO DAILY Qty: 90 4RF coenzyme Q10 [CoQ-10] 100 mg Capsule 100 mg PO DAILY Discharge Instructions Instructions: Diverticulitis (ED) Additional Instructions: Please take medications as prescribed and stay well-hydrated. Continue to follow the diverticulitis diet. You may benefit from clear liquids for 24 hours and then slowly advancing your diet over the next couple days that may aid in your resolution of your symptoms. If you develop any new or significant worsening of your condition feel free to return the emergency department for reassessment otherwise follow-up with your primary care provider preferably in the next week. Referrals: Tamie Mary MD, MD [Primary Care Provider] - 1 week Medical Decision Making Patient presenting to the emergency department for chief complaint of persistent nausea that was worse this morning and felt like she had some pounding funny heartbeats with the nausea. She reports this has been going on for 3 weeks and has not improved. Patient was seen in urgent care and had labs and ultrasound which showed no worrisome findings and was placed on Zofran which has not really helped. Patient denies fever chills, diarrhea, vomiting, urinary symptoms or chest pain. Physical exam is unremarkable except for point tenderness to palpation of the left lower quadrant. Patient is otherwise stable in appearance. Review of vital signs show slight hypertension, mild tachycardia which I did not appreciate on exam patient is afebrile not hypoxic. Patient has significant past medical history of mitral valve replacement, left bundle branch block, diverticulosis aortic valve stenosis and GERD. We will plan on checking patient's labs, CT imaging given duration of symptoms and worsening along with EKG and troponin. I do feel low likelihood that this is cardiac related given 3 weeks of nausea symptoms but will rule out with 2 troponins and EKG. Pending results will give Compazine as patient stated Zofran did not help. Please see physician interpretation for interpretation of EKG but upon my review patient has left bundle branch block with no significant change from previous EKGs. Review of labs show a normal CBC, CMP does show slightly elevated creatinine at 1.3 which is not off patient's baseline, glucose of 114 otherwise negative CMP and normal lipase. Initial troponin is also nondetectable negative. Given that we are doing a CT scan and elevated creatinine we will give patient 500 mL bolus of normal saline. Second troponin was negative. Reviewed CT imaging and radiologist interpretation that shows mild diverticulitis with significant diverticulosis noted. There was slight amount of free fluid noted by radiologist in the dependent portion of the pelvis. Given mild diver type to cheilitis and 3 weeks of symptoms we will treat patient with antibiotics given duration of symptoms but I am reassured with patient's normal white count. We will use Augmentin twice daily and will give patient prescription for Compazine given that that works better than Zofran. After discussion of diagnosis and plan of care patient has no further needs, questions, or concerns and states clear understanding to return to the emergency department for any worsening symptoms. This documentation was generated using [employer] system, please disregard any oddities of phrase or misspellings. HPI General Mode of arrival: ambulatory . Date/Time Provider Initiated Documentation: 02/25/23 09:39 . Limitations to Documentation: no limitations . Information obtained by: patient and RN notes reviewed . History of Present Illness 82 year old F presents to the emergency department with the chief complaint of With persistent nausea with heart feeling funny today, described as mild and moderate, Patient started experiencing this week(s) (2-3) and it has been intermittent. No relieving factors improve symptom(s), No exacerbating factors reported . Patient did receive the following treatments prior to arrival, none Related Data Home Medications Medication Instructions Recorded Confirmed Aspirin/Acetaminophen/Caffeine 2 ea PO DAILY 02/19/18 02/15/23 [Excedrin Extra Strength Caplet] multivitamin (Daily Multiple 1 ea PO DAILY 02/19/18 02/15/23 tablet) coenzyme Q10 100 mg capsule 100 mg PO DAILY 06/10/18 02/15/23 (CoQ-10) diazepam 5 mg tablet (Valium) 5 mg PO BID PRN anxiety #90 03/13/22 02/15/23 tab-caps furosemide 40 mg tablet 40 mg PO DAILY #90 tabs 03/13/22 02/15/23 metoprolol succinate 50 mg 50 mg PO DAILY #90 tabs 03/13/22 02/15/23 tablet,extended release 24 hr potassium chloride 20 mEq 20 meq PO DAILY #90 tabs 03/13/22 02/15/23 tablet,extended release rizatriptan 10 mg disintegrating 10 mg PO BID PRN migraine headache 03/13/22 02/15/23 tablet (Maxalt-GRAIN MERCHANDISING MANAGER) #5 tabs simvastatin 40 mg tablet 40 mg PO QPM #90 tabs 03/13/22 02/15/23 omeprazole 20 mg capsule,delayed 20 mg PO BID reflux #180 caps 04/07/22 02/15/23 release amoxicillin 500 mg tablet 2,000 mg PO ONCE #16 tabs 05/08/22 02/15/23 lisinopril 20 mg tablet 20 mg PO DAILY #90 tab-caps 08/21/22 02/15/23 pregabalin 50 mg capsule (Lyrica) 50 mg PO BID #60 caps 01/26/23 02/15/23 tramadol 50 mg tablet 50 mg PO Q8H PRN pain #21 tabs 02/05/23 02/15/23 ondansetron HCl 4 mg tablet 4 mg PO Q8H PRN nausea and 02/15/23 02/15/23 vomiting #20 tabs levothyroxine 50 mcg tablet 50 mcg PO DAILY #90 tab-caps 02/21/23 amoxicillin 875 mg-potassium 1 tab PO Q12H 7 days #14 tabs 02/25/23 clavulanate 125 mg tablet prochlorperazine maleate 5 mg 5 mg PO TID PRN nausea and 02/25/23 tablet (Compazine) vomiting #10 tabs Previous Rx's Medication Instructions Recorded diazepam 5 mg tablet (Valium) 5 mg PO BID PRN anxiety #90 03/13/22 tab-caps furosemide 40 mg tablet 40 mg PO DAILY #90 tabs 03/13/22 metoprolol succinate 50 mg 50 mg PO DAILY #90 tabs 03/13/22 tablet,extended release 24 hr potassium chloride 20 mEq 20 meq PO DAILY #90 tabs 03/13/22 tablet,extended release rizatriptan 10 mg disintegrating 10 mg PO BID PRN migraine headache 03/13/22 tablet (Maxalt-GRAIN MERCHANDISING MANAGER) #5 tabs simvastatin 40 mg tablet 40 mg PO QPM #90 tabs 03/13/22 omeprazole 20 mg capsule,delayed 20 mg PO BID reflux #180 caps 04/07/22 release amoxicillin 500 mg tablet 2,000 mg PO ONCE #16 tabs 05/08/22 lisinopril 20 mg tablet 20 mg PO DAILY #90 tab-caps 08/21/22 pregabalin 50 mg capsule (Lyrica) 50 mg PO BID #60 caps 01/26/23 tramadol 50 mg tablet 50 mg PO Q8H PRN pain #21 tabs 02/05/23 ondansetron HCl 4 mg tablet 4 mg PO Q8H PRN nausea and 02/15/23 vomiting #20 tabs levothyroxine 50 mcg tablet 50 mcg PO DAILY #90 tab-caps 02/21/23 amoxicillin 875 mg-potassium 1 tab PO Q12H 7 days #14 tabs 02/25/23 clavulanate 125 mg tablet prochlorperazine maleate 5 mg 5 mg PO TID PRN nausea and 02/25/23 tablet (Compazine) vomiting #10 tabs Allergies Allergy/AdvReac Type Severity Reaction Status Date / Time No Known Allergies Allergy Verified 02/15/23 12:31 General Stated Complaint: Chest Pain GRACE: 3 Review of Systems Constitutional Constitutional: Denies chills, Denies fever(s) and Denies headache(s) ENT Ears, Nose, Mouth, and Throat: Denies headache(s) and Denies sore throat Cardiovascular Cardiovascular: Denies chest pain, Reports palpitations and Denies dyspnea Respiratory Respiratory: Denies dyspnea Gastrointestinal Gastrointestinal: Reports as per HPI, Denies abdominal pain, Denies hematochezia, Denies diarrhea, Reports nausea and Denies vomiting Musculoskeletal Musculoskeletal: Denies back pain Integumentary/Breasts Skin/Breast: Denies rash Neurologic Neurologic: Denies headache(s) Endocrine Endocrine: Reports palpitations PFSH All Active Problems (Updated 02/25/23 @ 14:35 by Eliseo Burrell NP) Diverticulitis (Chronic) H/O aortic valve repair (Acute) Lumbar radiculopathy (Acute) Shoulder pain, right (Acute) 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) Iliotibial band syndrome, right leg (Acute) Spinal stenosis at L4-L5 level (Acute) Left bundle branch block (Acute) S/P aortic valve replacement with bioprosthetic valve (Acute) Aortic valve replaced (Acute) [place] [facility] [place] of right hip (Acute) Tear of right gluteus medius tendon (Acute) Iliotibial band syndrome of right side (Acute) Trochanteric bursitis, right hip (Acute) Injection: 05/02/21; 10/04/20; 10/16/2018 Screening for colon cancer (Acute) Diverticulitis large intestine (Acute) Aortic valve stenosis (Acute) Atrial fibrillation (Acute 04/10/17) Mitral valve regurgitation (Acute) Tricuspid valve disorder (Acute) Ventricular arrhythmia (Acute) H/O colonoscopy (Chronic ~06/2018) Diverticulosis (Chronic) Tubular adenoma (Chronic) 05/20/12; DR. LAM;TUBULAR ADENOMA ; SIGMOID DIVERTICULOSIS 06/11/18; DR. MOTA Renal insufficiency (Chronic) Globus sensation (Chronic 10/22/13) Gastroesophageal reflux disease (Chronic) Diverticulosis of colon without diverticulitis (Chronic 05/22/12) Medical History Abdominal pain Abnormal auditory perception Abnormal mammogram, unspecified 07/12/04 cat 3; 6 mo f/u Acute diffuse otitis externa of left ear Aortic valve stenosis needs replacement 0.7 cm Atrial fibrillation 04/10/17 unspecified Carpal tunnel syndrome release in 2000; cont. 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 Malignant neoplasm of female breast (07/12/80) right lumpectomy w/ radiation 1981 Neck pain on right side Neoplasm of unspecified nature of bone, soft tissue, and skin (01/03/16) On amiodarone therapy (04/10/17) Osteoporosis T-scores -2.5, -1.1, -5.5 Other halfway (current) drug therapy 04/10/17 On Amiodarone Therapy Perforation of left tympanic membrane Periorbital cellulitis of right eye Peroneal tendonitis of right lower leg Primary osteoarthritis of right hip Right knee pain Right shoulder pain Severe dysmenorrhea s/p hysterectomy 1981 Skin lesion of left lower extremity (02/07/16) Sore throat Throat clearing 05/15/17 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 PROCTOR HEART SURGERY 03/22/[place] [facility] [place] Carpal Tunnel release (~2000) S/P abdominal hysterectomy 08/13/81 total; for dysmennorrhea S/P breast lumpectomy 08/13/80 right breast cancer S/P carpal tunnel release 08/13/00 Status post abdominal hysterectomy Status post breast lumpectomy Status post carpal tunnel release Status post cataract extraction 03/07/16 right cataract s/p b/l cataract extraction; Dr. Proctor; 02/22/16 right; 11/07/16 left Status post right cataract extraction (03/07/16) Family History Mother , 84 Colon cancer Father , 89 Stomach cancer Sister A-fib Depression Heart disease Hyperlipidemia Brother , 89 Essential hypertension Dementia Heart disease PACEMAKER Hyperlipidemia Colon cancer Prostate cancer Sister Essential hypertension Hyperlipidemia Maternal Grandfather No problems noted. Paternal Grandfather No problems noted. Maternal Grandmother No problems noted. Paternal Grandmother No problems noted. Social History Smoking/Tobacco Use Status: Never Second Hand Exposure: Yes Smoking risk assessment performed?: Yes Alcohol Intake: former Drug use: Occasionally Substance use type: tranquilizers Counseling given: No Counseling provided: none Details: rx: diazepam Caregiver/Support person: No Household members: family Housing: house Do you need help understanding health information?: Rarely Pets and animals: No Sexually active: No Do you think of yourself as: straight/heterosexual Current gender identity: female What is your relationship status?: never How often do you get together with friends or relatives?: decline to answer How often do you attend adventism or faith services?: decline to answer Do you belong to any clubs or organized social groups?: no Panel score (0-1 are the most socially isolated patients): 0 What type of physical activity do you participate in: bicycling Duration: 30-45 minutes/day Frequency: 1-2 times per week Gisselle/Sabianism: Uatsdin Special gisselle needs: No Seatbelt use: always Drive intox or ride w/intox cdl driver: No Do you feel safe at home: Yes Do you feel safe in your relationship?: Yes Exam Const General: cooperative Orientation: alert, awake and oriented x3 Resp Effort & Inspection: normal respiratory effort and able to speak in complete sentences Auscultation: clear to auscultation bilaterally Cardio Rate: regular rate Rhythm: regular rhythm Heart Sounds: S1 normal and S2 normal GI Palpation: soft, no hepatosplenomegaly, not firm, no guarding, no masses, no pulsatile masses, not rigid, no splenomegaly and tender in the LLQ Auscultation: normal bowel sounds Back/Spine/Pelvis Back: no CVA tenderness Neuro General: patient alert, patient awake, patient oriented x3, gait normal and moves all extremities Course Vital Signs Vital signs: Vital Signs Temperature 36.1 C L 02/25/23 09:27 Pulse 108 H 02/25/23 09:27 Respiratory Rate 16 02/25/23 09:27 Blood Pressure 142/81 H 02/25/23 09:27 Pulse Oximetry 97 02/25/23 09:27 Temperature 36.1 C L 02/25/23 09:27 Temperature Source Tympanic 02/25/23 09:27 Pulse 108 H 02/25/23 09:27 Respiratory Rate 16 02/25/23 09:55 Respiratory Effort Normal, Non-Labored 02/25/23 09:55 Respiratory Depth Normal 02/25/23 09:55 Respiratory Pattern Normal 02/25/23 09:55 Blood Pressure 142/81 H 02/25/23 09:27 Blood Pressure Position Sitting 02/25/23 09:27 Pulse Oximetry 97 02/25/23 09:27 Oxygen Delivery Method Room Air 02/25/23 09:27 Oxygen Flow Rate 0 02/25/23 09:27 Pain Level 10 02/25/23 09:27 Lab/Test Results Lab/Test Results: Laboratory Tests Range/Units 02/25/23 02/25/23 02/25/23 10:25 10:25 13:36 WBC (4.4-10.8) 10^3/uL 6.69 RBC (3.93-5.22) 10^6/uL 4.41 Hgb (11.2-15.7) g/dL 12.9 Hct (36.0-46.0) % 39.3 MCV (80-95) fL 89 MCH (27.0-33.0) pg 29.3 MCHC (32.0-36.0) % 32.8 RDW (11.7-14.6) % 12.8 Plt Count (130-400) 10^3/uL 281 MPV (8.0-11.0) fL 9.8 Immature Gran % 0.3 Neutrophils % 66.1 Lymphocytes % 26.0 Monocytes % 6.3 Eosinophils % 0.7 Basophils % 0.6 Nucleated RBC % (0.0-0.3) % 0.0 Absolute Neutrophils (1.2-6.7) 10^3/uL 4.42 Absolute Lymphocytes (1.2-3.4) 10^3/uL 1.74 Absolute Monocytes (0.1-0.8) 10^3/uL 0.42 Absolute Eosinophils (0.0-0.7) 10^3/uL 0.05 Absolute Basophils (0.0-0.2) 10^3/uL 0.04 Sodium (136-145) mmol/L 138 Potassium (3.5-5.1) mmol/L 4.6 Chloride (98-107) mmol/L 103 Carbon Dioxide (21.0-32.0) mmol/L 27.7 Anion Gap (3-11) mmol/L 7.3 BUN (7-18) mg/dL 13 Creatinine (0.55-1.02) mg/dL 1.3 H Est GFR (CKD-EPI 2020) (mL/min/1.73m2) 40.55 Glucose (74-106) mg/dL 114 H Calcium (8.5-10.1) mg/dL 9.4 Magnesium (1.8-2.4) mg/dL 2.2 Total Bilirubin (0.2-1.0) mg/dL 0.5 AST (15-37) U/L 18 ALT (14-59) U/L 18 Alkaline Phosphatase (46-116) U/L 57 Troponin I (<or=60) ng/L < 50 < 50 Total Protein (6.4-8.2) g/dL 7.6 Albumin (3.4-5.0) g/dL 3.9 Lipase (16-77) U/L 41
[2023-02-25] MEDS: Amoxicillin 875/Clav. 125 TAB PO (14:39)
== END 2023-02-25 14:57 | disposition home or self-care (01) ==
PROVIDERS: Emergency Provider Nurse Practitioner Family; PCP Family Medicine
DX: K57.92 Diverticulitis of intestine, part unspecified, without perforation or abscess without bleeding (principal)
CPT/HCPCS: 80053; 83690; 93005; 96360; 99285; 74177; 83735; 84484; 85025; 93010; 99284; J3490

== ENCOUNTER → 2023-03-05 10:28 | Outpatient (BNVA) | payer MEDICARE, SELFPAY | PROVIDERS: PCP Family Medicine; Visit Provider Internal Medicine Cardiovascular Disease | DX: I48.91 Unspecified atrial fibrillation (principal); Z95.3 Presence of xenogenic heart valve | CPT/HCPCS: 99213 ==

== ENCOUNTER 2023-03-20 04:00 | Outpatient (CLI) | payer MEDICARE, SELFPAY ==
[2023-03-20 12:35] LABS: Calculated LDL 78 mg/dL (<100); Cholesterol 174 mg/dL (<200); HDL Cholesterol 53 mg/dL (40-60); Triglyceride 218 mg/dL (<150)
== END 2023-03-20 04:01 | disposition home or self-care (01) ==
LOC: LOS 04:00
PROVIDERS: PCP Family Medicine; Visit Provider Family Medicine
DX: E78.5 Hyperlipidemia, unspecified (principal); N28.9 Disorder of kidney and ureter, unspecified; Z86.79 Personal history of other diseases of the circulatory system; Z98.890 Other specified postprocedural states
CPT/HCPCS: 36415; 80061

== ENCOUNTER → 2023-05-10 02:39 | Outpatient (CLI) | payer MEDICARE, SELFPAY ==
--- NOTE | 2023-05-10 13:19 | DI.MAMMO_ITS ---
Exam(s) MG MAMMO SCREENING 60 MIN DUR EXAM: MG MAMMO SCREENING 60 MIN DUR CLINICAL HISTORY: breast cancer screening,H/O BREAST CA, Z85.3. TECHNIQUE: Bilateral full field digital CC and MLO mammographic images were obtained with 3D tomosyn thesis and utilizing computer aided detection (CAD). COMPARISON: Prior mammograms were reviewed. Patient underwent right breast lumpectomy in 2007. FINDINGS: Fibroglandular tissue is again noted be dense in both breasts, this somewhat decreasing the sensitivi ty mammogram for finding hidden underlying lesions. There are no new obvious significant focal findings in the left breast. Scarring and architectural distortion and heavy dystrophic calcification is again noted at the lumpec ifrah site in the right breast, unchanged. IMPRESSION: Dense bilateral fibroglandular tissue. Stable appearance of right breast lumpectomy site (2007). No obvious radiographic evidence of malignancy. BI-RADS Category 2 - Benign Findings Breast Density - Category C - Heterogeneously dense Breast density Category C or D implies that the patient has dense breast tissue. Dense breast tissue can make it harder to find cancer on a mammogram. Dense breast tissue is also associated with an incr eased risk of breast cancer. This information about the result of the mammogram report was provided to the patient to raise their awareness. Use this report when you speak with the patient about their risks for breast cancer, which includes their family history. At that time, you may recommend additional screening tests (Ultrasoun d or MRI) as these tests may add significant information. A negative radiographic report should not delay biopsy if a dominant or clinically suspicious mass is present. Up to ten percent of cancers are not identified on mammography. A negative report may reinforce clinical impression. Adenosis and dense breasts may obscure an underlying neoplasm. False positive reports average 6 to 10%. Patient will receive a letter notifying them of these results.
== END ==
PROVIDERS: PCP Family Medicine; Visit Provider Family Medicine
DX: Z85.3 Personal history of malignant neoplasm of breast (principal); Z12.31 Encounter for screening mammogram for malignant neoplasm of breast
CPT/HCPCS: 77063; 77067

== ENCOUNTER 2023-08-17 17:45 | Outpatient (REF) | payer MEDICARE, SELFPAY ==
[2023-08-17 21:06] LABS: Bilirubin Negative (Negative); Blood Moderate (Negative); Clarity Clear (Clear); Glucose Negative (Negative); Ketones Negative (Negative); Leukocyte Esterase Small (Negative); Nitrite Negative (Negative); Specific Gravity <= 1.005 (1.005-1.025); Urobilinogen 0.2 mg/dL (Up to 0.2); pH 5.5 (5-8)
[2023-08-17 21:13] LABS: Bacteria Negative HPF (Negative); C & S Indicated? Yes; Crystals Negative HPF (Negative); Epithelial Cells Few HPF (Negative); Mucus Negative (Negative); Other Cells Rare Transitional (Negative); RBC 0-2 HPF (0-2)
== END 2023-08-17 17:46 | disposition home or self-care (01) ==
LOC: LBN 17:45
PROVIDERS: PCP Family Medicine; Visit Provider Nurse Practitioner Family
DX: N39.0 Urinary tract infection, site not specified (principal); N76.0 Acute vaginitis
CPT/HCPCS: 87077; 81003; 81015; 87086; 87186; 87480; 87510; 87660

== ENCOUNTER → 2023-09-10 02:10 | Outpatient (CLI) | payer MEDICARE, SELFPAY ==
--- NOTE | 2023-09-10 07:45 | DI.RAD_ITS ---
Exam(s) XR KNEE RT 3V AP,LAT,LEISA EXAM: XR KNEE RT 3V AP,LAT,LEISA CLINICAL HISTORY: hip and hip pain,M25.561. TECHNIQUE: 2D digital imaging was performed of the right knee. Three views obtained. AP, lateral an d PA tunnel views were obtained. COMPARISON: CR XR KNEE RT 3V AP,LAT,LEISA from 02/01/2022 FINDINGS: BONES: No acute fracture is present. No bony destructive lesion is seen. JOINTS: The knee is normally aligned. There is a very small joint effusion. The articular surfaces a re well maintained. SOFT TISSUE: Vascular calcifications are present. IMPRESSION: Small joint effusion. DATA REPOSITORY: RADIATION DOSE DELIVERED:
--- NOTE | 2023-09-10 07:45 | DI.RAD_ITS ---
Exam(s) XR HIP RT COMPLETE AP PELVIS EXAM: XR HIP RT COMPLETE AP PELVIS CLINICAL HISTORY: knee and hip pain,ARTHRITIS RT HIP,M16.11. TECHNIQUE: 2D digital imaging was performed of the right hip. Three images were obtained. AP pelvis and lateral right hip views were obtained. COMPARISON: CR XR HIP RT COMPLETE AP PELVIS from 02/01/2022 FINDINGS: BONES: No acute fracture is present. No bony destructive lesion is seen. JOINTS: No dislocation present. There are marked degenerative changes seen in the right hip with loss of the superior joint space. There are osteophytes present at the acetabulum and femoral head. Sub chondral cysts are also seen in both the acetabular roof and the articular surface of the femoral hea d. The left hip is well maintained. The sacroiliac joints and symphysis pubis are unremarkable. SOFT TISSUE: Vascular calcifications are present. IMPRESSION: Marked degenerative changes of the right hip. DATA REPOSITORY: RADIATION DOSE DELIVERED:
== END ==
PROVIDERS: PCP Family Medicine; Visit Provider Family Medicine
DX: M16.11 Unilateral primary osteoarthritis, right hip (principal); M25.561 Pain in right knee
CPT/HCPCS: 73562; 73502

== ENCOUNTER 2023-10-26 14:05 | Outpatient (REF) | payer MEDICARE, SELFPAY ==
[2023-10-26 21:55] LABS: Bilirubin Negative (Negative); Blood Small (Negative); Clarity Cloudy (Clear); Glucose Negative (Negative); Ketones Negative (Negative); Leukocyte Esterase Moderate (Negative); Nitrite Negative (Negative); Specific Gravity >= 1.030 (1.005-1.025); Urobilinogen 0.2 mg/dL (Up to 0.2); pH 6.5 (5-8)
[2023-10-26 22:20] LABS: Bacteria Rare HPF (Negative); C & S Indicated? Yes; Crystals Negative HPF (Negative); Epithelial Cells Few HPF (Negative); Mucus Trace (Negative); WBC >50 HPF (0-5)
== END 2023-10-26 14:06 | disposition home or self-care (01) ==
LOC: LBN 14:05
PROVIDERS: PCP Family Medicine; Referring Provider Nurse Practitioner Family; Visit Provider Nurse Practitioner Family
DX: N39.0 Urinary tract infection, site not specified (principal)
CPT/HCPCS: 81003; 81015; 87086

== ENCOUNTER → 2024-01-01 10:32 | Outpatient (BNVA) | payer MEDICARE, SELFPAY | PROVIDERS: PCP Family Medicine; Referring Provider Family Medicine; Visit Provider Nurse Practitioner Gerontology | DX: R31.29 Other microscopic hematuria (principal) | CPT/HCPCS: 81003; 99214 ==

== ENCOUNTER 2024-02-28 09:01 | Outpatient (CLI) | payer MEDICARE, SELFPAY ==
[2024-02-28 09:22] VITALS: BP 128/60; PULSE 85; RESP 20; TEMP 36.7; O2SAT 97
--- NOTE | 2024-02-28 10:12 | PDOC.PAIN_ITS ---
Date of service: 02/28/24 Time of Service: 10:12 Pain Managment Procedure Note Procedure Note Procedure Note: PROCEDURE NOTE RIGHT INTRA-ARTICULAR HIP JOINT SYNVISC-ONE INJECTION Date of Service: February 28, 2024 Patient:? Fiorella Coleman? Provider:? Dc Echevarria DO, MPH Fiorellayina Coleman has been [facility] to the [facility] for RIGHT intra-articular hip joint Synvisc-One injection. Pre-operative diagnosis: Hip Osteoarthritis Post-operative diagnosis: Same Pre-Procedure Pain: VAS= 10/10 COMMENTS: I previously evaluated her in the office. Fiorella?was interviewed and the medical record was reviewed.? There were no medical, pharmacologic, radiographic or other structural contraindications to attempting fluoroscopically guided RIGHT intra-articular hip joint injection.? Risks and expected side effects as well as potential benefit of the procedure were reviewed with Fiorella, and voiced concerns were addressed.? The printed consent form was signed.? Standard time-out procedure was performed. Fiorella was placed in the lateral recumbant position on the fluoroscopy table with pulse oximeter applied. The skin entry point for approaching superior aspect of the lateral RIGHT hip joint was identified under the most advantageous fluoroscopic view and marked. Following thorough Chlorhexadine preparation of the skin and draping, 1% lidocaine infiltration of the skin entry point and subcutaneous tissues was accomplished. Next a 22 gauge 3.5 inch spinal needle was placed under fluoroscopic guidance into the RIGHT hip joint. Intra- articular placement was confirmed by a clear arthrogram resulting from the injection of 3 ml Omnipaque 240. 3 ml of 1 %Lidocaine and 6 cc of Synvisc-One was injected intra-articularily with an initial reproduction of a significant component of the usual pain. 1 ml of 1% Lidocaine was then flushed through the needle and the needle was then removed without difficulty. (47 ml of Omnipaque was wasted). There was no unusual discomfort expressed by Fiorella. The needle was withdrawn without difficulty. Fiorella was observed and was without hemodynamic, neurologic, or allergic reactions.? Fluoroscopic images were digitally archived. Fiorella's vital signs were stable throughout the procedure and were as recorded in the docflowsheet by the nursing staff. If given, dosages of intravenous drugs for anxiolysis and analgesia were documented in MAR. Follow up plans and appointments were discussed with Fiorella. Post procedure instruction was given as documented in nursing documentation and having met discharge criteria, Fi[facility]. COMMENTS: No apparent complications. Post-procedure pain: VAS= 2/10. Fiorella to contact [facility] as needed. If at least 50% improvement in pain and/or function for at least 6 months is achieved, this procedure can be repeated. I personally completed the entire procedure. DC ECHEVARRIA DO, MPH ABPM&R - Subspecialty board certification in Pain Medicine [facility] [facility]
--- NOTE | 2024-02-28 10:15 | DI.RAD_ITS ---
Exam(s) XR PAIN CLINIC FLUORO JOINT IN EXAM: XR PAIN CLINIC FLUORO JOINT IN CLINICAL HISTORY: right hip pain TECHNIQUE: 2D and realtime digital imaging was performed. Radiologist not present. CONTRAST MATERIAL: None. COMPARISON: No exams were available for comparison FINDINGS: Fluoroscopy was provided for pain management therapy. Please refer to procedure report or details. Radiation Exposure Index: Gar=15.38 mGy IMPRESSION: As above. RADIATION DOSE DELIVERED:
[2024-02-28 10:23] VITALS: PULSE 88; O2SAT 98
[2024-02-28] MEDS: Hylan G-F 20 48 MG/6 ML SYR IU (10:24)
[2024-02-28] MEDS: Omnipaque 240 MG/ML 50 ML BTL IJ (10:26)
[2024-02-28] MEDS: Lidocaine 2% Pres-Free 5 ML VIAL IJ (10:26)
[2024-02-28] MEDS: Nerve Block Tray 1 EACH MC (10:27)
== END 2024-02-28 09:02 | disposition home or self-care (01) ==
LOC: PC 09:02
PROVIDERS: PCP Family Medicine; Visit Provider Preventive Medicine Occupational Medicine
DX: M54.50 Low back pain, unspecified (principal); M16.11 Unilateral primary osteoarthritis, right hip
CPT/HCPCS: 20610; 77002; J7325; Q9967

== ENCOUNTER 2024-03-10 07:55 | Outpatient (CLI) | payer MEDICARE, SELFPAY ==
--- NOTE | 2024-03-10 07:45 | RT.EKG_ITS ---
APPROVED REPORT Exam: Resting ECG Reason for Exam: AFIB Patient Location: O HR:88 bpm ECG Measurements Heart Rate 88 AXIS NC 168 P 71 QRSd 141 QRS -30 QT 400 T 60 QTc 484 Conclusion Sinus rhythm...normal P axis, V-rate 50- 99 Probable left atrial enlargement...P >50mS, <-0.10mV V1 Left bundle branch block...QRSd>120, broad/notched R
== END 2024-03-10 07:56 | disposition home or self-care (01) ==
LOC: DI.CARD 07:56
PROVIDERS: PCP Family Medicine; Visit Provider Internal Medicine Cardiovascular Disease
DX: I48.91 Unspecified atrial fibrillation (principal); I49.9 Cardiac arrhythmia, unspecified; I51.7 Cardiomegaly; I44.7 Left bundle-branch block, unspecified
CPT/HCPCS: 93010

== ENCOUNTER → 2024-03-10 10:22 | Outpatient (BNVA) | payer MEDICARE, SELFPAY | PROVIDERS: PCP Family Medicine; Visit Provider Internal Medicine Cardiovascular Disease | DX: I44.7 Left bundle-branch block, unspecified (principal); I48.91 Unspecified atrial fibrillation; Z95.3 Presence of xenogenic heart valve; I49.9 Cardiac arrhythmia, unspecified | CPT/HCPCS: 93005; 99213 ==

== ENCOUNTER 2024-04-29 11:25 | Outpatient (CLI) | payer MEDICARE, SELFPAY ==
[2024-04-29 12:40] LABS: ALT 18 U/L (14-59); AST 22 U/L (15-37); Albumin 4.1 g/dL (3.4-5.0); Alkaline Phosphatase 71 U/L (46-116); Anion Gap 8.6 mmol/L (3-11); BUN 21 mg/dL (7-18); Bilirubin, Total 0.36 mg/dL (0.2-1.0); CO2 30.4 mmol/L (21.0-32.0); CREATININE 1.3 mg/dL (0.55-1.02); Calcium 9.7 mg/dL (8.5-10.1); Calculated LDL 75 mg/dL (<100); Chloride 102 mmol/L (98-107); Cholesterol 174 mg/dL (<200); Glucose 107 mg/dL (74-106); HDL Cholesterol 63 mg/dL (40-60); Potassium 3.7 mmol/L (3.5-5.1); Sodium 141 mmol/L (136-145); TSH (W/Ref FT4) 2.89 uIU/mL (0.36-3.74); Total Protein 8.2 g/dL (6.4-8.2); Triglyceride 180 mg/dL (<150)
== END 2024-04-29 11:26 | disposition home or self-care (01) ==
LOC: LOS 11:26
PROVIDERS: PCP Family Medicine; Referring Provider Family Medicine; Visit Provider Family Medicine
DX: E03.9 Hypothyroidism, unspecified (principal); I10 Essential (primary) hypertension; I48.91 Unspecified atrial fibrillation; H60.42 Cholesteatoma of left external ear; M16.11 Unilateral primary osteoarthritis, right hip; M48.061 Spinal stenosis, lumbar region without neurogenic claudication
CPT/HCPCS: 36415; 80053; 80061; 84443

== ENCOUNTER 2024-05-10 13:39 | Outpatient (REF) | payer MEDICARE, SELFPAY ==
[2024-05-10 17:55] LABS: Bilirubin Negative (Negative); Blood Negative (Negative); Clarity Clear (Clear); Glucose Negative (Negative); Ketones Negative (Negative); Leukocyte Esterase Negative (Negative); Nitrite Negative (Negative); Urobilinogen 0.2 mg/dL (Up to 0.2)
== END 2024-05-10 13:40 | disposition home or self-care (01) ==
LOC: LBN 13:39
PROVIDERS: PCP Family Medicine; Visit Provider Nurse Practitioner Family
DX: N39.0 Urinary tract infection, site not specified (principal); R82.89 Other abnormal findings on cytological and histological examination of urine
CPT/HCPCS: 81003

== ENCOUNTER 2024-06-03 19:53 | Outpatient (REF) | payer MEDICARE, SELFPAY ==
[2024-06-03 21:49] LABS: Abs Immature Grans 0.03 10^3/uL (0.0-0.06); Absolute Basophil Count 0.06 10^3/uL (0.0-0.2); Absolute Eosinophil Count 0.03 10^3/uL (0.0-0.7); Absolute Monocyte Count 0.47 10^3/uL (0.1-0.8); Absolute Neutrophil Count 7.94 10^3/uL (1.2-6.7); Basophils % 0.6 %; Eosinophils % 0.3 %; HCT 40.9 % (36.0-46.0); Immature Grans % 0.3 %; Lymphocytes % 13.2 %; MCHC 31.8 % (32.0-36.0); MCV 91 fL (80-95); MPV 10.9 fL (8.0-11.0); Monocytes % 4.8 %; Neutrophils % 80.8 %; Platelet Count 258 10^3/uL (130-400); RBC 4.49 10^6/uL (3.93-5.22); RDW 13.2 % (11.7-14.6); RDW-SD 44.4 fL; WBC 9.83 10^3/uL (4.4-10.8)
[2024-06-03 21:52] LABS: ALT 17 U/L (14-59); AST 17 U/L (15-37); Albumin 3.7 g/dL (3.4-5.0); Alkaline Phosphatase 61 U/L (46-116); Anion Gap 8.4 mmol/L (3-11); BUN 14 mg/dL (7-18); Bilirubin, Total 0.37 mg/dL (0.2-1.0); CO2 27.6 mmol/L (21.0-32.0); CREATININE 1.2 mg/dL (0.55-1.02); Calcium 9.3 mg/dL (8.5-10.1); Chloride 106 mmol/L (98-107); Estimated GFR 44.36 (mL/min/1.73m2); Glucose 109 mg/dL (74-106); Potassium 3.9 mmol/L (3.5-5.1); Sodium 142 mmol/L (136-145); Total Protein 7.4 g/dL (6.4-8.2)
== END 2024-06-03 19:54 ==
LOC: LBN 19:53
PROVIDERS: PCP Family Medicine; Visit Provider Nurse Practitioner Family
DX: K57.92 Diverticulitis of intestine, part unspecified, without perforation or abscess without bleeding (principal); R10.32 Left lower quadrant pain
CPT/HCPCS: 80053; 85025

== ENCOUNTER 2024-06-11 21:10 | Emergency (ER) | payer MEDICARE, SELFPAY ==
--- NOTE | 2024-06-11 21:09 | ED.GENADUL_ITS ---
Discharge Plan Disposition Patient Disposition: Home Discharge Details Clinical Impression: Abdominal pain Primary Care Provider: Tamie Mary ED Provider: Remy Subramanian [place] Meds and New Rx's Prescriptions: Continued levothyroxine 50 mcg tablet 50 mcg PO DAILY Qty: 90 4RF lisinopril 20 mg tablet 20 mg PO DAILY Qty: 90 4RF metoprolol succinate 50 mg tablet extended release 24 hr 50 mg PO DAILY Qty: 90 3RF omeprazole 20 mg capsule,delayed release(DR/EC) 20 mg PO BID Qty: 180 4RF rizatriptan [Maxalt-TECHNOLOGY TRAINING ASSOCIATE] 10 mg tablet,disintegrating 10 mg PO BID PRN (Reason: migraine headache) Qty: 5 0RF simvastatin 40 mg tablet 40 mg PO QPM Qty: 90 4RF triamcinolone acetonide 0.1 % cream 1 applic topical BID PRN (Reason: rash) Qty: 30 0RF Rx Instructions: apply to affected area 2x daily for the next 7 days amoxicillin-pot clavulanate 875-125 mg tablet 1 tab PO TID 10 Days Qty: 30 0RF Rx Instructions: Take with meal. Take 1 pill every 12 hour Aspirin/Acetaminophen/Caffeine [Excedrin Extra Strength Caplet] 1 EACH tablet 2 ea PO DAILY multivitamin [Daily Multiple] 1 EACH tablet 1 ea PO DAILY ofloxacin 0.3 % drops 5 drp otic (ear) bid 5 Days Qty: 5 1RF furosemide 40 mg tablet 40 mg PO DAILY Qty: 90 3RF diazepam [Valium] 5 mg tablet 5 mg PO BID MDD 2 PRN (Reason: anxiety) Qty: 90 2RF Rx Instructions: 3 month supply coenzyme Q10 [CoQ-10] 100 mg Capsule 100 mg PO DAILY Discharge Instructions Additional Instructions: You are seen in the emergency department for your abdominal pain. Your CAT scan showed no sign of any diverticulitis. Please continue taking your oral antibiotics as previously prescribed. As we discussed, please return to the emergency department if you develop any rash to her abdomen. Any fevers. If you cannot eat or drink, or if you have any episodes of vomiting. Otherwise please follow-up with your primary care provider next week. HPI General Date/Time Provider Initiated Documentation: 06/11/24 21:15 . HPI Narrative: MDM This is a mildly tachycardic but normothermic 83-year-old female with outpatient clinical diagnosis of diverticulitis but with persistent abdominal pain concerning for treatment failure for which patient will undergo CT scan. No rash to abdomen to suggest zoster. No pain out of proportion to suggest necrotizing soft tissue infection. No nausea vomiting epigastric nor chest pain to suggest ACS so it did not obtain a troponin. No dysuria or frequency so doubt UTI. Patient has not recently so not concern for splenic arterial aneurysm. Patient has no signs of lower extremity edema so not concern for heart failure. No history of AAA and no pulsatile mass to suggest ruptured AAA. Patient is status post remote appendectomy so not concern for appendicitis. She has not been vomiting to suggest small bowel obstruction. No loss of bowel or bladder control to suggest cauda equina. Ureterolithiasis is less likely given the patient lacks history of nephrolithiasis. Will obtain basic labs and reassess. 10:20 PM CBC lacks anemia thrombocytopenia and leukocytosis. Comprehensive metabolic panel showing CKD but no CRYSTAL. No acute electrolyte abnormalities. 11:[address] returned with no signs of diverticulitis. She did have a left 2 mm nonobstructing nephrolithiasis. No hydronephrosis. No ureteral lithiasis. There is possible that she could have recently passed a small ureterallithiasis. The absence of dysuria and frequency is not concerning for UTI. She certainly has diverticulosis but no diverticulitis. We discussed that she should return to the ED if she develops a rash to her abdomen if she develops any fevers chills she cannot eat or drink or if she develops any chest pain. She understood her return indications and was discharged with an empiric trial of expectant outpatient management. HPI This is an 83-year-old female history of bioprosthetic aortic valve and recent diagnosis of diverticulitis In the emergency department via EMS in the setting of worsening abdominal pain. Patient reports that she has been on amoxicillin clavulanic acid for the past 8 days. For the past 24 hours she has had increasing pain. She took Excedrin around 1 PM this afternoon. She endorses lower abdominal discomfort that she d escribes as burning. She denies nausea vomiting dysuria and frequency. No chest pain. No shortness of breath. Surgical history significant for remote appendectomy during childhood. No recent falls. Exam General: Well-appearing in no acute distress speaking in complete sentences. Head: Normocephalic, atraumatic. Eye: Extraocular eye movements intact. No conjunctival injection. No scleral icterus. Ear, nose, mouth, throat: Grossly normal inspection. Normal voice, handling secretions normally. Neck: Trachea midline. Cardiovascular: Well-perfused distal extremities.Mechanical heart sounds. Regular rate. Respiratory: Nonlabored respiration.Clear lungs bilaterally. Gastrointestinal: Nondistended abdomen.Soft. Minimal left lower quadrant tenderness. Well-healed right lower quadrant scar. Musculoskeletal: No edema. Moving all 4 extremities spontaneously. Skin: Normal for age and race, grossly normal temperature and turgor. No acute rash. Neurologic: Alert and appropriate, no apparent acute deficits. Psychiatric: Mood and manner are appropriate. Grooming and personal hygiene are appropriate. Related Data Home Medications ?Medication ?Instructions ?Recorded ?Confirmed Aspirin/Acetaminophen/Caffeine 2 ea PO DAILY 02/19/18 06/11/24 [Excedrin Extra Strength Caplet] multivitamin (Daily Multiple 1 ea PO DAILY 02/19/18 06/11/24 tablet) coenzyme Q10 100 mg capsule 100 mg PO DAILY 06/10/18 06/11/24 (CoQ-10) ofloxacin 0.3 % ear drops 5 drp otic (ear) bid 5 days #5 mL 03/04/24 06/11/24 furosemide 40 mg tablet 40 mg PO DAILY #90 tabs 03/26/24 06/11/24 levothyroxine 50 mcg tablet 50 mcg PO DAILY #90 tab-caps 04/29/24 06/11/24 lisinopril 20 mg tablet 20 mg PO DAILY #90 tab-caps 04/29/24 06/11/24 metoprolol succinate 50 mg 50 mg PO DAILY #90 tabs 04/29/24 06/11/24 tablet,extended release 24 hr omeprazole 20 mg capsule,delayed 20 mg PO BID reflux #180 caps 04/29/24 06/11/24 release rizatriptan 10 mg disintegrating 10 mg PO BID PRN migraine headache 04/29/24 06/11/24 tablet (Maxalt-TECHNOLOGY TRAINING ASSOCIATE) #5 tabs simvastatin 40 mg tablet 40 mg PO QPM #90 tabs 04/29/24 06/11/24 diazepam 5 mg tablet (Valium) 5 mg PO BID PRN anxiety #90 05/05/24 06/11/24 tab-caps triamcinolone acetonide 0.1 % 1 applic topical BID PRN rash #30 05/10/24 06/11/24 topical cream grams amoxicillin 875 mg-potassium 1 tab PO TID 10 days #30 tabs 06/03/24 06/11/24 clavulanate 125 mg tablet Previous Rx's ?Medication ?Instructions ?Recorded ofloxacin 0.3 % ear drops 5 drp otic (ear) bid 5 days #5 mL 03/04/24 furosemide 40 mg tablet 40 mg PO DAILY #90 tabs 03/26/24 levothyroxine 50 mcg tablet 50 mcg PO DAILY #90 tab-caps 04/29/24 lisinopril 20 mg tablet 20 mg PO DAILY #90 tab-caps 04/29/24 metoprolol succinate 50 mg 50 mg PO DAILY #90 tabs 04/29/24 tablet,extended release 24 hr omeprazole 20 mg capsule,delayed 20 mg PO BID reflux #180 caps 04/29/24 release rizatriptan 10 mg disintegrating 10 mg PO BID PRN migraine headache 04/29/24 tablet (Maxalt-TECHNOLOGY TRAINING ASSOCIATE) #5 tabs simvastatin 40 mg tablet 40 mg PO QPM #90 tabs 04/29/24 diazepam 5 mg tablet (Valium) 5 mg PO BID PRN anxiety #90 05/05/24 tab-caps triamcinolone acetonide 0.1 % 1 applic topical BID PRN rash #30 05/10/24 topical cream grams amoxicillin 875 mg-potassium 1 tab PO TID 10 days #30 tabs 06/03/24 clavulanate 125 mg tablet Allergies Allergy/AdvReac Type Severity Reaction Status Date / Time No Known Drug Allergies Allergy NKDA Verified 06/03/24 11:18 General GRACE: 3 Medical Decision Making Quality:SDOH Health Related Social Needs: No Data to Display PFSH All Active Problems (Updated 06/11/24 @ 23:26 by Remy Subramanian MD) Abdominal pain (Acute) Osteoarthritis of right hip (Acute) Rupture of tympanic membrane due to otitis media (Acute) Right knee pain (Acute) Mixed hearing loss (Acute) H/O aortic valve repair (Acute) Lumbar radiculopathy (Acute) Shoulder pain, right (Acute) 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) Iliotibial band syndrome, right leg (Acute) Spinal stenosis at L4-L5 level (Acute) Left bundle branch block (Acute) S/P aortic valve replacement with bioprosthetic valve (Acute) Aortic valve replaced (Acute) 2018 [facility] [place] Arthritis of right hip (Acute) Tear of right gluteus medius tendon (Acute) Iliotibial band syndrome of right side (Acute) Trochanteric bursitis, right hip (Acute) Injection: 05/02/21; 10/04/20; 10/16/2018 Screening for colon cancer (Acute) Diverticulitis large intestine (Acute) Aortic valve stenosis (Acute) Atrial fibrillation (Acute 04/10/17) Mitral valve regurgitation (Acute) Tricuspid valve disorder (Acute) Ventricular arrhythmia (Acute) H/O colonoscopy (Chronic ~06/2018) Diverticulosis (Chronic) Tubular adenoma (Chronic) 05/20/12; DR. LAM;TUBULAR ADENOMA ; SIGMOID DIVERTICULOSIS 06/11/18; DR. MOTA Renal insufficiency (Chronic) Globus sensation (Chronic 10/22/13) Gastroesophageal reflux disease (Chronic) Diverticulosis of colon without diverticulitis (Chronic 05/22/12) Medical History Elevated serum creatinine Low back pain radiating to left leg Cervical radiculopathy Neck pain on right side Right shoulder pain Perforation of left tympanic membrane Abdominal pain Acute diffuse otitis externa of left ear Abnormal auditory perception Cerumen impaction Sore throat Primary osteoarthritis of right hip Low back pain with sciatica (07/12/03) On amiodarone therapy (04/10/17) Skin lesion of left lower extremity (02/07/16) Trochanteric bursitis Peroneal tendonitis of right lower leg Periorbital cellulitis of right eye 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 Hallman; moderate mitral annular calcification (mild mitral insufficiency) mild on 2013 Ventricular arrhythmia sinus tachycardia; NL ECHO, NL Holter, asymptomatic on metoprolol Aortic valve stenosis needs replacement 0.7 cm Severe dysmenorrhea s/p hysterectomy 1981 Abnormal mammogram, unspecified 07/12/04 cat 3; 6 mo f/u Central perforation of tympanic membrane of left ear 01/03/16 Impacted cerumen of left ear 01/03/16 Leg skin lesion, left 02/07/16 Atrial fibrillation 04/10/17 unspecified Other fci (current) drug therapy 04/10/17 On Amiodarone Therapy Throat clearing 05/15/17 Colorectal polyps 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 w/ deficit; right Surgical History Status post abdominal hysterectomy Status post breast lumpectomy Status post carpal tunnel release Status post right cataract extraction (03/07/16) S/P breast lumpectomy 08/13/80 right breast cancer S/P abdominal hysterectomy 08/13/81 total; for dysmennorrhea S/P carpal tunnel release 08/13/00 Status post cataract extraction 03/07/16 right cataract s/p b/l cataract extraction; Dr. Proctor; 02/22/16 right; 11/07/16 left Open Carpal Tunnel release (~2000) Abdominal hysterectomy (~1981) TOTAL for dysmenorrhea HEART SURGERY 03/22/17 [facility] [place] Extraction of cataract 02/25-RIGHT 11/07/16- LEFT DR. PROCTOR Breast, Lumpectomy (~1980) RIGHT BREAST CA Family History Mother , 84 Colon cancer Father , 89 Stomach cancer Sister A-fib Depression Heart disease Hyperlipidemia Brother , 89 Essential hypertension Dementia Heart disease PACEMAKER Hyperlipidemia Colon cancer Prostate cancer Sister Essential hypertension Hyperlipidemia Maternal Grandfather No problems noted. Paternal Grandfather No problems noted. Maternal Grandmother No problems noted. Paternal Grandmother No problems noted. 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 Counseling given: No Counseling provided: none Details: rx: diazepam Caregiver/Support person: No Household members: family Housing: house Do you need help understanding health information?: Rarely Pets and animals: No Sexually active: No Do you think of yourself as: straight/heterosexual Current gender identity: female What is your relationship status?: never How often do you talk on the phone with friends or family?: decline to answer How often do you get together with friends or relatives?: decline to answer How often do you attend caodaism or buddhist services?: decline to answer Do you belong to any clubs or organized social groups?: decline to answer Panel score (0-1 are the most socially isolated patients): 0 What type of physical activity do you participate in: bicycling Duration: 45-60 minutes/day Frequency: 1-2 times per week Gisselle/Gnosticism: Religion Special gisselle needs: No Seatbelt use: always Drive intox or ride w/intox auto transport driver: No Do you feel safe at home: Yes Do you feel safe in your relationship?: Yes
[2024-06-11 21:12] VITALS: BP 176/85; PULSE 104; RESP 17; TEMP 36.8; O2SAT 96
--- NOTE | 2024-06-11 21:15 | DI.CT_ITS ---
Exam(s) CT ABDOMEN PELVIS W EXAM: CT ABDOMEN PELVIS W CLINICAL HISTORY: Bilateral lower quadrant pain. TECHNIQUE: Imaging Protocol: Axial computed tomography images with coronal and sagittal reformatted images were created and reviewed CONTRAST MATERIAL: Intravenous: Omnipaque 350 Contrast volume:85 ml Oral: / no COMPARISON: CT CT ABDOMEN PELVIS W from 02/25/2023 FINDINGS: ABDOMEN and PELVIS: Lung Bases: No acute findings. Liver: Normal density. No suspicious mass. Gallbladder and biliary tract: No radiodense calculus. No biliary dilation. Pancreas: Normal density. No abnormal calcifications or inflammatory process. No evidence of mass. Spleen: Normal. Kidneys: Normal size, contour and axis. Tiny nonobstructing stone mid left kidney. Mild cortical sc arring. Unchanged from prior. No obstructive uropathy. Right renal cyst again noted. No suspiciou s masses seen. Adrenal glands: No masses seen. Vasculature: Abdominal aorta non-dilated. Vascular calcifications. Soft tissues: Unremarkable. Bladder: No gross wall thickening. No calculi.No focal mass. Bowel: No obstruction. No bowel wall thickening. No evidence of appendicitis. Diverticulosis ivonne cending and sigmoid colon. Peritoneal cavity: No ascites. No focal collection. No mesenteric inflammatory response. Bones: Severe degenerative changes of the right hip. Scoliosis and degenerative changes in the spine . Reproductive organs: Status post hysterectomy. Lymph nodes: No pathologically enlarged lymph nodes. Small calcified lymph nodes again noted. IMPRESSION:: No acute abnormality in the abdomen or pelvis. RADIATION DOSE DELIVERED: 594.91mGy.cm Total DLP DATA REPOSITORY: All CT scans at this facility are submitted to the National Radiology Data Registry (NRDR) Dose Index Registry (DIR) with the [employer] (ACR). RADIATION OPTIMIZATION: All CT scans at this facility use at least one of these dose optimization te chniques: automated exposure control; mA and/or kV adjustment per patient size (includes targeted exa ms where dose is matched to clinical indication); or iterative reconstruction.
[2024-06-11 21:42] LABS: Abs Immature Grans 0.02 10^3/uL (0.0-0.06); Absolute Basophil Count 0.06 10^3/uL (0.0-0.2); Absolute Lymphocyte Count 2.67 10^3/uL (1.2-3.4); Absolute Monocyte Count 0.49 10^3/uL (0.1-0.8); Absolute Neutrophil Count 4.23 10^3/uL (1.2-6.7); Basophils % 0.8 %; Eosinophils % 1.3 %; HCT 41.1 % (36.0-46.0); HGB 13.4 g/dL (11.2-15.7); Immature Grans % 0.3 %; Lymphocytes % 35.3 %; MCH 29.1 pg (27.0-33.0); MCHC 32.6 % (32.0-36.0); MCV 89 fL (80-95); MPV 10.1 fL (8.0-11.0); Monocytes % 6.5 %; Neutrophils % 55.8 %; Platelet Count 274 10^3/uL (130-400); RDW-SD 42.1 fL; WBC 7.57 10^3/uL (4.4-10.8)
[2024-06-11] MEDS: Normal Saline - Diluent 50 ML VIAL IJ (21:54)
[2024-06-11] MEDS: Omnipaque 350 MG/ML 100 ML BTL IJ (21:54)
[2024-06-11 22:00] LABS: ALT 26 U/L (14-59); AST 22 U/L (15-37); Albumin 3.9 g/dL (3.4-5.0); Alkaline Phosphatase 77 U/L (46-116); Anion Gap 8.5 mmol/L (3-11); BUN 16 mg/dL (7-18); CO2 26.5 mmol/L (21.0-32.0); CREATININE 1.3 mg/dL (0.55-1.02); Calcium 9.9 mg/dL (8.5-10.1); Chloride 104 mmol/L (98-107); Glucose 95 mg/dL (74-106); Potassium 3.9 mmol/L (3.5-5.1); Sodium 139 mmol/L (136-145); Total Protein 8.1 g/dL (6.4-8.2)
--- NOTE | 2024-06-11 23:09 | DI.VRAD_ITS ---
PROCEDURE INFORMATION: Exam: CT Abdomen And Pelvis With Contrast Exam date and time: 06/11/2024 10:18 PM Age: 83 years old Clinical indication: Other: Bilateral lower quadrant pain; Prior surgery; Surgery date: 6+ months; Surgery type: Hysterectomy TECHNIQUE: Imaging protocol: Computed tomography of the abdomen and pelvis with contrast. Contrast material: OMNI 350; Contrast volume: 85 ml; Contrast route: INTRAVENOUS (IV); COMPARISON: CT ABDOMEN PELVIS W 02/25/2023 11:57 AM FINDINGS: Lungs: Bilateral lower lobe atelectatic changes. Heart: Mitral valve calcifications. Liver: Normal. No mass. Gallbladder and biliary ducts: Normal. No calcified stones. No ductal dilation. Pancreas: Normal. No ductal dilation. Spleen: Normal. No splenomegaly. Adrenal glands: Normal. No mass. Kidneys and ureters: 2 mm nonobstructing stone in the interpolar region of the left kidney. Focal cortical scarring of the interpolar region of the left kidney. Simple renal in the interpolar region of the right kidney measuring 4.5 cm. No hydronephrosis on either side. Stomach and bowel: There is diverticulosis of the descending and sigmoid colon. Appendix: No evidence of appendicitis. Intraperitoneal space: Unremarkable. No free air. No significant fluid collection. Vasculature: There are vascular atheromatous calcifications. Lymph nodes: Calcified mesenteric lymph nodes. Urinary bladder: Unremarkable as visualized. Reproductive: Post hysterectomy. Bones/joints: Mild degenerative disease of the symphysis pubis and bilateral sacroiliac joints. Severe degenerative disease of the right hip joint marginal osteophytes and subchondral cystic changes. Curvature of the lumbar spine convex to the left. Mild degenerative disease of the symphysis pubis. Mild retrolisthesis of L2 over L3. Posterior osteophyte disc complex at L4-L5 with mild bony canal stenosis and moderate narrowing of bilateral neural foramina. Soft tissues: Unremarkable. IMPRESSION: No acute intra-abdominal process. Dictated and Authenticated by: Alexi Mars MD. Ordering:NORMAN Alberto MD
[2024-06-11 23:42] VITALS: BP 136/85; PULSE 86; RESP 18; TEMP 37.1; O2SAT 96
== END 2024-06-12 00:07 | disposition home or self-care (01) ==
LOC: ER 06-12 01:10
PROVIDERS: Emergency Provider Emergency Medicine; PCP Family Medicine
DX: R10.30 Lower abdominal pain, unspecified (principal); Z87.19 Personal history of other diseases of the digestive system; Z95.2 Presence of prosthetic heart valve
CPT/HCPCS: 80053; 99285; 74177; 85025; 99283; J3490

== ENCOUNTER 2024-07-21 11:35 | Outpatient (CLI) | payer MEDICARE, SELFPAY ==
--- NOTE | 2024-07-21 11:30 | RT.EKG_ITS ---
APPROVED REPORT Exam: Resting ECG Reason for Exam: chest discomfort Patient Location: O HR:98 bpm ECG Measurements Heart Rate 98 AXIS NH 163 P 77 QRSd 140 QRS -31 QT 405 T 56 QTc 518 Conclusion Sinus rhythm...normal P axis, V-rate 50- 99 Left atrial enlargement...P, P'>60mS, <-0.15mV V1 Left bundle branch block...QRSd>120, broad/notched R
== END 2024-07-21 11:36 | disposition home or self-care (01) ==
LOC: DI.CM 11:35
PROVIDERS: PCP Family Medicine; Visit Provider Nurse Practitioner Family
DX: R07.89 Other chest pain (principal)
CPT/HCPCS: 93010

== ENCOUNTER 2024-08-28 01:11 | Outpatient (CLI) | payer MEDICARE, SELFPAY ==
[2024-08-28 11:52] LABS: Vitamin B12 671 pg/mL (193-986)
== END 2024-08-28 01:12 | disposition home or self-care (01) ==
LOC: LBO 01:11
PROVIDERS: PCP Family Medicine; Visit Provider Family Medicine
DX: E53.8 Deficiency of other specified B group vitamins (principal)
CPT/HCPCS: 36415; 82607

== ENCOUNTER → 2024-11-17 12:50 | Outpatient (BNVA) | payer MEDICARE, SELFPAY | PROVIDERS: PCP Family Medicine; Referring Provider Family Medicine; Visit Provider Student in an Organized Health Care Education/Training Program | DX: M16.11 Unilateral primary osteoarthritis, right hip (principal) | CPT/HCPCS: 20611 ==

== ENCOUNTER 2024-11-30 14:59 | Observation (INO) | payer MEDICARE, SELFPAY ==
[2024-11-30] VITALS (60 sets, daily range): BP systolic 93–151; BP diastolic 36–72; PULSE 79–98; RESP 9–21; TEMP 36.6–36.8; O2SAT 92–100
--- NOTE | 2024-11-30 15:00 | DI.CT_ITS ---
Exam(s) CT PELVIC WO EXAM: CT PELVIC WO CLINICAL HISTORY: fall, inability to ambulate. TECHNIQUE: Imaging Protocol: Axial computed tomography images with coronal and sagittal reformatted images were created and reviewed CONTRAST MATERIAL: Intravenous: none Oral: None COMPARISON: CT CT ABDOMEN PELVIS W from 06/11/2024 FINDING: PELVIS: OSSEOUS: No pelvic nor hip fractures evident.Advanced degenerative changes in the right hip are again noted. Small calcific density adjacent to the greater trochanter of the right hip is unchanged from 06/11/2024. The opposite-left hip appears unremarkable. No obvious pubic rami fractures evident. Chronic disc space narrowing at L4-5 level again noted. No fracture or listhesis at this level. No sacral fractures. SOFT TISSUES: No significant hematomas evident. ANTERIOR ABDOMINAL WALL/GI:No evidence of significant anterior abdominal wall nor inguinal hernia in the pelvis evident.No obvious bowel obstruction. No evidence of appendicitis.Sigmoid diverticulosis without evidence of acute diverticulitis.No free fluid in the pelvis. LYMPH NODES: There is no intrapelvic nor inguinal adenopathy. URINARY BLADDER: No calculi nor obvious masses evident REPRODUCTIVE: Uterus atrophic or surgically absent. No abnormal adnexal findings.. IMPRESSION: 1. No evidence of pelvic nor hip fractures. Advanced unilateral degenerative changes of the right hi p are again noted, unchanged from 06/11/2024. 2. Sigmoid diverticulosis. No evidence of acute diverticulitis. 3. RADIATION DOSE DELIVERED: 366.94mGy.cm Total DLP DATA REPOSITORY: All CT scans at this facility are submitted to the National Radiology Data Registry (NRDR) Dose Index Registry (DIR) with the [employer] (A[employer]). RADIATION OPTIMIZATION: All CT scans at this facility use at least one of these dose optimization te chniques: automated exposure control; mA and/or kV adjustment per patient size (includes targeted exa ms where dose is matched to clinical indication); or iterative reconstruction.
--- NOTE | 2024-11-30 15:00 | DI.CT_ITS ---
Exam(s) CT LOWER EXTREMITY LT WO EXAM: CT LOWER EXTREMITY LT WO CLINICAL HISTORY: fall, inability to ambualte, L knee swelling. TECHNIQUE: Imaging Protocol: Axial computed tomography images with coronal and sagittal reformatted images were created and reviewed. CONTRAST MATERIAL: Intravenous: Omnipaque 350 Contrast volume:structured data in ml Contrast route:I V - Oral: yes / no COMPARISON: CT CT PELVIC WO from 11/30/2024 FINDINGS: SOFT TISSUES: Large prepatellar hematoma evident. This extends anterior to the patellar ligament down to and below the anterior tibial tubercle but there is no fracture at this level. This also extends for a few cm above the superior pole the patella but there does not appear to be an obvious high-grade tear of th e quadriceps tendon. There is a small knee joint effusion evident. OSSEOUS/ARTICULATIONS: There is no evidence of fracture in the mid-lower femur nor at the level of the tibial plateau and pr oximal fibular head and neck. No evidence of patellar fracture. IMPRESSION: Prominent prepatellar hematoma as described above. No fractures evident. Small knee joint effusion noted Called by myself to ER physician 11/30/2024 at 4:30 pm RADIATION DOSE DELIVERED: 179.46mGy.cm Total DLP DATA REPOSITORY: All CT scans at this facility are submitted to the National Radiology Data Registry (NRDR) Dose Index Registry (DIR) with the [employer] (ACR). RADIATION OPTIMIZATION: All CT scans at this facility use at least one of these dose optimization te chniques: automated exposure control; mA and/or kV adjustment per patient size (includes targeted exa ms where dose is matched to clinical indication); or iterative reconstruction.
[2024-11-30] MEDS: Ondansetron 4 MG/2 ML VIAL IVP ×2 (15:53→23:48)
[2024-11-30 15:58] LABS: Abs Immature Grans 0.04 10^3/uL (0.0-0.06); Absolute Basophil Count 0.06 10^3/uL (0.0-0.2); Absolute Eosinophil Count 0.04 10^3/uL (0.0-0.7); Absolute Lymphocyte Count 2.07 10^3/uL (1.2-3.4); Absolute Monocyte Count 0.58 10^3/uL (0.1-0.8); Absolute Neutrophil Count 9.55 10^3/uL (1.2-6.7); Basophils % 0.5 %; Eosinophils % 0.3 %; HCT 37.1 % (36.0-46.0); HGB 11.9 g/dL (11.2-15.7); Immature Grans % 0.3 %; Lymphocytes % 16.8 %; MCH 29.5 pg (27.0-33.0); MCHC 32.1 % (32.0-36.0); MCV 92 fL (80-95); MPV 10.1 fL (8.0-11.0); Monocytes % 4.7 %; Neutrophils % 77.4 %; Platelet Count 248 10^3/uL (130-400); RBC 4.04 10^6/uL (3.93-5.22); RDW 13.4 % (11.7-14.6); RDW-SD 45.4 fL; WBC 12.34 10^3/uL (4.4-10.8)
[2024-11-30 16:09] LABS: PTT Activated 23.6 sec (20.6-30.2); Prothrombin Time 10.5 sec (9.1-11.1)
[2024-11-30 16:27] LABS: ALT 18 U/L (14-59); AST 22 U/L (15-37); Albumin 3.7 g/dL (3.4-5.0); Alkaline Phosphatase 65 U/L (46-116); Anion Gap 9.3 mmol/L (3-11); BUN 19 mg/dL (7-18); Bilirubin, Total 0.2 mg/dL (0.2-1.0); CO2 28.7 mmol/L (21.0-32.0); CREATININE 1.2 mg/dL (0.55-1.02); Calcium 9.1 mg/dL (8.5-10.1); Chloride 103 mmol/L (98-107); Estimated GFR 44.08 (mL/min/1.73m2); Glucose 122 mg/dL (74-106); Potassium 4.2 mmol/L (3.5-5.1); Sodium 141 mmol/L (136-145); Total Protein 7.4 g/dL (6.4-8.2)
--- NOTE | 2024-11-30 17:07 | W.ED.GENAD ---
Discharge Plan Disposition Patient Disposition: Admit to [facility] Condition: Serious Discharge Details Clinical Impression: Acute pain of left knee, Fall, Knee swelling Primary Care Provider: Tamie Mary ED Provider: Dot Diaz Home Meds and New Rx's Prescriptions: No Action levothyroxine 50 mcg tablet 50 mcg PO DAILY Qty: 90 4RF lisinopril 20 mg tablet 20 mg PO DAILY Qty: 90 4RF metoprolol succinate 50 mg tablet extended release 24 hr 50 mg PO DAILY Qty: 90 3RF rizatriptan [Maxalt-[employer]] 10 mg tablet,disintegrating 10 mg PO BID PRN (Reason: migraine headache) Qty: 5 0RF simvastatin 40 mg tablet 40 mg PO QPM Qty: 90 4RF omeprazole 40 mg capsule,delayed release(DR/EC) 40 mg PO DAILY Qty: 90 5RF Aspirin/Acetaminophen/Caffeine [Excedrin Extra Strength Caplet] 1 EACH tablet 2 ea PO DAILY multivitamin [Daily Multiple] 1 EACH tablet 1 ea PO DAILY furosemide 40 mg tablet 40 mg PO DAILY Qty: 90 3RF diazepam [Valium] 5 mg tablet 5 mg PO BID MDD 2 PRN (Reason: anxiety) Qty: 90 2RF Rx Instructions: 3 month supply coenzyme Q10 [CoQ-10] 100 mg Capsule 100 mg PO DAILY HPI General Mode of arrival: EMS. Date/Time Provider Initiated Documentation: 11/30/24 15:05. Limitations to Documentation: no limitations. Information obtained by: patient and EMS. HPI Narrative: 84yo F with hx osteoarthritis of right hip, aortic valve repair, afib, hypothyroid, HTN, presenting for left knee pain. Around 1pm while walking outside tripped and fell forward landing with all her weight on her left knee, then caught herself with her right hand. Did not strike her head. Was unable to get up by herself but with assistance was able to partially bear weight on her left leg and ambulate. Since then left knee has become progressively more painful and swollen and she is unable to bear any weight on it at all. She has severe pain with any movement at the knee; has been able to flex and extend her knee but is excruciatingly painful. Given 100mcg of fentanyl by EMS with improvement in her pain which is now tolerable. No numbness or tingling in her LLE. No pain elsewhere. Pain was initially worst behind her knee but now feels like it is more in the front. Some nausea after the fentanyl, no vomiting. Otherwise in her usual state of health with no fevers, chest pain, abdominal pain, headache, or other concerns. Related Data Home Medications ?Medication ?Instructions ?Recorded ?Confirmed Aspirin/Acetaminophen/Caffeine 2 ea PO DAILY 02/19/18 11/30/24 [Excedrin Extra Strength Caplet] multivitamin (Daily Multiple 1 ea PO DAILY 02/19/18 11/30/24 tablet) coenzyme Q10 100 mg capsule 100 mg PO DAILY 06/10/18 11/30/24 (CoQ-10) furosemide 40 mg tablet 40 mg PO DAILY #90 tabs 03/26/24 11/30/24 levothyroxine 50 mcg tablet 50 mcg PO DAILY #90 tab-caps 04/29/24 11/30/24 lisinopril 20 mg tablet 20 mg PO DAILY #90 tab-caps 04/29/24 11/30/24 metoprolol succinate 50 mg 50 mg PO DAILY #90 tabs 04/29/24 11/30/24 tablet,extended release 24 hr rizatriptan 10 mg disintegrating 10 mg PO BID PRN migraine headache 04/29/24 11/30/24 tablet (Maxalt[employer]) #5 tabs simvastatin 40 mg tablet 40 mg PO QPM #90 tabs 04/29/24 11/30/24 omeprazole 40 mg capsule,delayed 40 mg PO DAILY #90 caps 07/01/24 11/30/24 release diazepam 5 mg tablet (Valium) 5 mg PO BID PRN anxiety #90 11/11/24 11/30/24 tab-caps Previous Rx's ?Medication ?Instructions ?Recorded furosemide 40 mg tablet 40 mg PO DAILY #90 tabs 03/26/24 levothyroxine 50 mcg tablet 50 mcg PO DAILY #90 tab-caps 04/29/24 lisinopril 20 mg tablet 20 mg PO DAILY #90 tab-caps 04/29/24 metoprolol succinate 50 mg 50 mg PO DAILY #90 tabs 04/29/24 tablet,extended release 24 hr rizatriptan 10 mg disintegrating 10 mg PO BID PRN migraine headache 04/29/24 tablet (Maxalt[employer]) #5 tabs simvastatin 40 mg tablet 40 mg PO QPM #90 tabs 04/29/24 omeprazole 40 mg capsule,delayed 40 mg PO DAILY #90 caps 07/01/24 release diazepam 5 mg tablet (Valium) 5 mg PO BID PRN anxiety #90 11/11/24 tab-caps Allergies Allergy/AdvReac Type Severity Reaction Status Date / Time No Known Drug Allergies Allergy NKDA Verified 11/30/24 15:21 General Stated Complaint: Orthopedic GRACE: 3 Review of Systems Narrative: see HPI Exam Narrative Exam Narrative: GENERAL: Alert, no acute distress. SKIN: Warm and well perfused. HEAD: Atraumatic, normocephalic without edema, discoloration or evidence of trauma. Facial bones without deformities or tenderness. EYES: PERRL. No scleral icterus or conjunctival injection. Extraocular muscles intact without nystagmus or diplopia. EARS: Normal appearing pinnae. No hemotympanum. NOSE: No discharge, tenderness, laxity. No nasal septal hematoma. MOUTH: No malocclusion or trismus. Moist mucus membranes without blood. NECK: Trachea midline. No discolorations or edema. CV: Regular rate and rhythm, Normal s1 and s2. No murmurs, rubs, or gallops. PV: Radial pulses 2+ bilaterally and symmetric. Dorsalis pedis pulses 1+ bilaterally and symmetric. 2+ capillary refill. CHEST: No abrasions or ecchymosis. Chest symmetric with respirations. No chest wall tenderness. No crepitus. No step offs. Lungs are clear to auscultation bilaterally. ABDOMEN: No ecchymosis or abrasions. Soft, nondistended, nontender. BACK: No abrasions, skin openings, or ecchymosis. Spine without bony tenderness, no step offs. PELVIC: Pelvis stable, nontender to lateral compression and palpation of symphysis pubis. MSK: Left knee swollen and tender to palpation. No warmth. No lacerations. Distal sensation and pulses and capillary refill intact. Good strength left ankle, strength testing of knee flexion/extension and hip flexion/extension limited 2/t to knee pain though is able to move all against gravity. Otherwise no gross deformities or discolorations or lesions and tolerates full range of motion of extremities without tenderness. No snuffbox tenderness bilaterally. NEURO: Alert and oriented to person, place, and time. GCS 15. Sensation grossly intact throughout. Finger to nose intact bilaterally. Course Vital Signs Vital signs: Vital Signs Temperature 36.6 C 11/30/24 15:10 Pulse 88 11/30/24 15:10 Respiratory Rate 12 11/30/24 15:10 Blood Pressure 136/64 11/30/24 15:10 Pulse Oximetry 96 11/30/24 15:10 Temperature 36.6 C 11/30/24 15:10 Temperature Source Temporal Artery Scan 11/30/24 15:10 Pulse 88 11/30/24 15:10 Respiratory Rate 12 11/30/24 15:10 Blood Pressure 136/64 11/30/24 15:10 Blood Pressure Position Supine 11/30/24 15:10 Pulse Oximetry 96 11/30/24 15:10 Oxygen Delivery Method Room Air 11/30/24 15:10 Oxygen Flow Rate 0 11/30/24 15:10 Pain Level 7 11/30/24 15:17 Lab/Test Results Lab/Test Results: Laboratory Tests Range/Units 11/30/24 15:42 WBC (4.4-10.8) 10^3/uL 12.34 H RBC (3.93-5.22) 10^6/uL 4.04 Hgb (11.2-15.7) g/dL 11.9 Hct (36.0-46.0) % 37.1 MCV (80-95) fL 92 MCH (27.0-33.0) pg 29.5 MCHC (32.0-36.0) % 32.1 RDW (11.7-14.6) % 13.4 Plt Count (130-400) 10^3/uL 248 MPV (8.0-11.0) fL 10.1 Immature Gran % % 0.3 Neutrophils % % 77.4 Lymphocytes % % 16.8 Monocytes % % 4.7 Eosinophils % % 0.3 Basophils % % 0.5 Nucleated RBC % (0.0-0.3) % 0.0 Absolute Neutrophils (1.2-6.7) 10^3/uL 9.55 H Absolute Lymphocytes (1.2-3.4) 10^3/uL 2.07 Absolute Monocytes (0.1-0.8) 10^3/uL 0.58 Absolute Eosinophils (0.0-0.7) 10^3/uL 0.04 Absolute Basophils (0.0-0.2) 10^3/uL 0.06 PT (9.1-11.1) sec 10.5 INR (0.9-1.1) 1.0 APTT (20.6-30.2) sec 23.6 Sodium (136-145) mmol/L 141 Potassium (3.5-5.1) mmol/L 4.2 Chloride (98-107) mmol/L 103 Carbon Dioxide (21.0-32.0) mmol/L 28.7 Anion Gap (3-11) mmol/L 9.3 BUN (7-18) mg/dL 19 H Creatinine (0.55-1.02) mg/dL 1.2 H Est GFR (CKD-EPI 2020) (mL/min/1.73m2) 44.08 Glucose (74-106) mg/dL 122 H Calcium (8.5-10.1) mg/dL 9.1 Total Bilirubin (0.2-1.0) mg/dL 0.2 AST (15-37) U/L 22 ALT (14-59) U/L 18 Alkaline Phosphatase (46-116) U/L 65 Total Protein (6.4-8.2) g/dL 7.4 Albumin (3.4-5.0) g/dL 3.7 Medical Decision Making 84yo F with hx osteoarthritis of right hip, aortic valve repair, afib, hypothyroid, HTN, presenting for left knee pain and swelling after MFFS during which she landed on her left knee with no HS or LOC. Initially able to partially weight bear, now unable. Vital signs reassuring on arrival; on exam has left knee swelling and tenderness. Neurovascular intact. No other significant traumatic findings on exam. Is able to move her knee but is quite painful; limited strength testing but has at least antigravity. Given zofran for nausea after fentanyl from EMS, tylenol for added pain control. Will avoid NSAIDs given concern for hemarthrosis. Labs reviewed as below, CBC with mild leukocytosis at 12 (nonspecific) and no anemia, CMP with no actionable abnormalities. CT pelvis and CT LLE independently reviewed; no displaced fracture on my view. Discussed with Dr Trimble (radiology read below) with large prepatellar hematoma noted, no large knee joint effusion. Discussed with [facility] orthopedics; based on imaging and exam low suspicion for significant tendinous injury, no indication for hematoma aspiration or urgent MRI at this time. Discussed with [facility] hospitalist Dr. Grove and pt accepted to medicine service under observation status for pain control, PT/OT. [facility] ortho did call back and advise adding plain films of femur and knee as a baseline in the event pt does not improve and requires further orthopedic followup; these were ordered. Imaging Data Radiologic Study: Imaging: CT Scan Radiologist's impression: IMPRESSION: 1. No evidence of pelvic nor hip fractures. Advanced unilateral degenerative changes of the right hip are again noted, unchanged from 06/11/2024. 2. Sigmoid diverticulosis. No evidence of acute diverticulitis. IMPRESSION: Prominent prepatellar hematoma as described above. No fractures evident. Small knee joint effusion noted Lab Data Lab results reviewed: Yes I reviewed the patient's lab results. Labs: Laboratory Tests Range/Units 11/30/24 15:42 WBC (4.4-10.8) 10^3/uL 12.34 H RBC (3.93-5.22) 10^6/uL 4.04 Hgb (11.2-15.7) g/dL 11.9 Hct (36.0-46.0) % 37.1 MCV (80-95) fL 92 MCH (27.0-33.0) pg 29.5 MCHC (32.0-36.0) % 32.1 RDW (11.7-14.6) % 13.4 Plt Count (130-400) 10^3/uL 248 MPV (8.0-11.0) fL 10.1 Immature Gran % % 0.3 Neutrophils % % 77.4 Lymphocytes % % 16.8 Monocytes % % 4.7 Eosinophils % % 0.3 Basophils % % 0.5 Nucleated RBC % (0.0-0.3) % 0.0 Absolute Neutrophils (1.2-6.7) 10^3/uL 9.55 H Absolute Lymphocytes (1.2-3.4) 10^3/uL 2.07 Absolute Monocytes (0.1-0.8) 10^3/uL 0.58 Absolute Eosinophils (0.0-0.7) 10^3/uL 0.04 Absolute Basophils (0.0-0.2) 10^3/uL 0.06 PT (9.1-11.1) sec 10.5 INR (0.9-1.1) 1.0 APTT (20.6-30.2) sec 23.6 Sodium (136-145) mmol/L 141 Potassium (3.5-5.1) mmol/L 4.2 Chloride (98-107) mmol/L 103 Carbon Dioxide (21.0-32.0) mmol/L 28.7 Anion Gap (3-11) mmol/L 9.3 BUN (7-18) mg/dL 19 H Creatinine (0.55-1.02) mg/dL 1.2 H Est GFR (CKD-EPI 2020) (mL/min/1.73m2) 44.08 Glucose (74-106) mg/dL 122 H Calcium (8.5-10.1) mg/dL 9.1 Total Bilirubin (0.2-1.0) mg/dL 0.2 AST (15-37) U/L 22 ALT (14-59) U/L 18 Alkaline Phosphatase (46-116) U/L 65 Total Protein (6.4-8.2) g/dL 7.4 Albumin (3.4-5.0) g/dL 3.7 Quality:SDOH Health Related Social Needs: No Data to Display PFSH All Active Problems (Updated 11/30/24 @ 19:07 by Dot Diaz MD) Knee swelling (Acute) Fall (Acute) Acute pain of left knee (Acute) Migraine headache (Chronic) Chronic anxiety (Chronic) CKD (chronic kidney disease) stage 3, GFR 30-59 ml/min (Chronic) Pain of left knee after injury (Acute) Traumatic hematoma (Acute) Cholesteatoma (Acute) Conductive hearing loss in left ear (Acute) B12 deficiency (Acute) Tympanic membrane perforation (Acute) Osteoarthritis of right hip (Chronic) POCUS INJECTION 11/17/24 Rupture of tympanic membrane due to otitis media (Acute) Right knee pain (Acute) Mixed hearing loss (Acute) H/O aortic valve repair (Acute) Lumbar radiculopathy (Acute) Shoulder pain, right (Acute) 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) Iliotibial band syndrome, right leg (Acute) Spinal stenosis at L4-L5 level (Acute) Left bundle branch block (Acute) S/P aortic valve replacement with bioprosthetic valve (Chronic) Aortic valve replaced (Acute) 2018 [facility] Arthritis of right hip (Acute) Tear of right gluteus medius tendon (Acute) Iliotibial band syndrome of right side (Acute) Trochanteric bursitis, right hip (Acute) Injection: 05/02/21; 10/04/20; 10/16/2018 Screening for colon cancer (Acute) Diverticulitis large intestine (Acute) Aortic valve stenosis (Acute) Atrial fibrillation (Chronic 04/10/17) Mitral valve regurgitation (Acute) Tricuspid valve disorder (Acute) Ventricular arrhythmia (Acute) H/O colonoscopy (Chronic ~06/2018) Diverticulosis (Chronic) Tubular adenoma (Chronic) 05/20/12; DR. LAM;TUBULAR ADENOMA ; SIGMOID DIVERTICULOSIS 06/11/18; DR. MOTA Renal insufficiency (Chronic) Globus sensation (Chronic 10/22/13) Gastroesophageal reflux disease (Chronic) Diverticulosis of colon without diverticulitis (Chronic 05/22/12) Medical History Elevated serum creatinine Low back pain radiating to left leg Cervical radiculopathy Neck pain on right side Right shoulder pain Perforation of left tympanic membrane Abdominal pain Acute diffuse otitis externa of left ear Abnormal auditory perception Cerumen impaction Sore throat Primary osteoarthritis of right hip Low back pain with sciatica (07/12/03) On amiodarone therapy (04/10/17) Skin lesion of left lower extremity (02/07/16) Trochanteric bursitis Peroneal tendonitis of right lower leg Periorbital cellulitis of right eye 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 w/ deficit; right Surgical History Status post abdominal hysterectomy Status post breast lumpectomy Status post carpal tunnel release Status post right cataract extraction (03/07/16) S/P breast lumpectomy 08/13/80 right breast cancer S/P abdominal hysterectomy 08/13/81 total; for dysmennorrhea S/P carpal tunnel release 08/13/00 Status post cataract extraction 03/07/16 right cataract s/p b/l cataract extraction; Dr. Proctor; 02/22/16 right; 11/07/16 left Open Carpal Tunnel release (~2000) Abdominal hysterectomy (~1981) TOTAL for dysmenorrhea HEART SURGERY 03/22/17 [facility] Extraction of cataract 02/25-RIGHT 11/07/16- LEFT DR. PROCTOR Breast, Lumpectomy (~1980) RIGHT BREAST CA Family History Mother , 84 Colon cancer Father , 89 Stomach cancer Sister A-fib Depression Heart disease Hyperlipidemia Brother , 89 Essential hypertension Dementia Heart disease PACEMAKER Hyperlipidemia Colon cancer Prostate cancer Sister Essential hypertension Hyperlipidemia Maternal Grandfather No problems noted. Paternal Grandfather No problems noted. Maternal Grandmother No problems noted. Paternal Grandmother No problems noted. 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 Counseling given: No Counseling provided: none Details: rx: diazepam Caregiver/Support person: No Household members: family Housing: house Do you need help understanding health information?: Rarely Pets and animals: No Sexually active: No Do you think of yourself as: straight/heterosexual Current gender identity: female What is your relationship status?: never How often do you talk on the phone with friends or family?: decline to answer How often do you get together with friends or relatives?: decline to answer How often do you attend baptist or roman catholic services?: decline to answer Do you belong to any clubs or organized social groups?: decline to answer Panel score (0-1 are the most socially isolated patients): 0 What type of physical activity do you participate in: bicycling Duration: 45-60 minutes/day Frequency: 1-2 times per week Gisselle/Methodist: Tenriism Special gisselle needs: No Seatbelt use: always Drive intox or ride w/intox fire truck driver: No Do you feel safe at home: Yes Do you feel safe in your relationship?: Yes
[2024-11-30] MEDS: ACETAMINOPHEN 1,000 MG/100 ML BAG 400 MG IVPB (18:17)
--- NOTE | 2024-11-30 18:30 | DI.RAD_ITS ---
Exam(s) XR KNEE LT 2V AP,LAT XR FEMUR LT EXAM: XR KNEE LT 2V AP,LAT and XR femur LT CLINICAL HISTORY: knee pain. TECHNIQUE: 2D digital imaging was performed of the left femur and knee. Six images were obtained. AP and lateral views were obtained. COMPARISON: CR RT HIP COMPLETE AP PELVIS from 06/27/2016 CR XR HIP RT COMPLETE AP PELVIS from 02/01/2022 CR XR HIP RT COMPLETE AP PELVIS from 09/10/2023 CR XR KNEE RT 3V AP,LAT,LEISA from 09/10/2023 FINDINGS: BONES: No acute fracture is present. No bony destructive lesion is seen. There is a sclerotic lesion seen in the distal femoral metaphysis which may represent a benign lesion such as an enchondroma or bone infarct. There is an enthesophyte at the superior patella. JOINTS: The knee is normally aligned. There is a small joint effusion. No loose body. SOFT TISSUE: There is marked soft tissue swelling anterior to the patella. Atherosclerotic calcifica tion is present. IMPRESSION: 1. Marked soft tissue swelling anterior to the patella. 2. Small joint effusion. 3. No acute fracture or dislocation. 4. The preliminary V Rad report was reviewed. DATA REPOSITORY: RADIATION DOSE DELIVERED:
--- NOTE | 2024-11-30 18:38 | W.PM.HP.N ---
Date of service: 11/30/24 Time of Service: 18:38 Assessment and Plan Assessment and plan (1) Traumatic hematoma: Start date: 11/30/24 Status: Acute Assessment and plan: This is an 84-year-old lady who had a mechanical fall at home tripping and falling with her full weight on her left knee. Does have a hematoma and small knee effusion with no evidence of fracture. There was some concern of skin disruption by imaging and this can be reviewed by nursing and physical therapy as they change her bandage. There is no specific therapy for this hematoma with orthopedic consulted from [facility] stating that it did not need to be drained. She is not on anticoagulation. Early mobility and observation will be expected treatment. Patient will return home when she is seen ambulating with assistive device and is on adequate pain management without side effects. She could be switched to oral morphine immediate release tablets and disintegrating Zofran which is for nausea associated with narcotic use past. This will need to be prescribed by her PCP if she needs this for home therapy she should not take Valium if she is on morphine. She is a full code. (2) Pain of left knee after injury: Start date: 11/30/24 Status: Acute Assessment and plan: Acute pain management with IV morphine transition to oral morphine if needed. Physical therapy evaluation and assistive devices as needed. Early mobilization. There is no evidence of fractures. (3) Chronic anxiety: Status: Chronic Assessment and plan: Patient is on chronic Valium and is to be minimized especially if she is oral morphine. Continue to follow-up PCP. (4) Atrial fibrillation: Status: Resolved Assessment and plan: Patient had only transient atrial fibrillation postoperatively when she had her aortic valve replaced. She is not on chronic anticoagulation and does take metoprolol for blood pressure control. She stated this has not been a problem should be taken off of her active problem list. Telemetry while hospitalized. (5) CKD (chronic kidney disease) stage 3, GFR 30-59 ml/min: Status: Chronic Assessment and plan: Stable with trending labs while hospitalized. (6) Essential hypertension: Assessment and plan: Continue outpatient medical therapy adjusting as needed. (7) S/P aortic valve replacement with bioprosthetic valve: Status: Chronic Assessment and plan: Patient still has a heart murmur and does not require anticoagulation. (8) Hyperlipidemia: Assessment and plan: Continue statin therapy. (9) Hypothyroidism: Assessment and plan: Check TSH and continue outpatient supplement. (10) Migraine headache: Status: Chronic Assessment and plan: Patient is not on Fioricet daily as per her medication list and does not really take ablative therapy with rizatriptan disintegrating tablets. History of Present Illness History of Present Illness Chief Complaint: Left knee pain and swelling after mechanical fall at home. Narrative: This is an 84-year-old female patient who lives with her elderly sister locally previously living in [place] after moving from [facility] and working in the [employer] in [place] and more recently locally at [employer] in [place]. She moved from [facility] to [place] for possible marriage that never happened. She has a history of severe arthritis especially over lower back and right hip and does have a walker and crutches at home which she uses after her right lower extremity surgery. She did have physical therapy after that surgery and still goes to physical therapy locally for maintenance. She takes Valium occasionally for anxiety but this is rare with her VPMS revealing infrequent prescribing. She is intolerant of most narcotics with nausea as a side effect but no true allergies and has had tramadol in the past which was not effective. She also has had Tylenol and NSAIDs in the past which are not effective for her arthritic/musculoskeletal pain. She did have a trip and fall just prior to presentation to the ED landing fully on her left knee with immediate swelling. She is not on anticoagulation but does have a history of transient atrial fibrillation status post aortic valve surgery in the past. She does have a bio-prosthetic aortic valve for placed in 2017. The patient was given fentanyl by EMS when being transferred to the ED with this event and this did help her pain but it caused nausea. Nausea did respond to Zofran. She was open to having continued pain management for her severe acute knee pain with IV morphine which was given in the ED with good effect. Once again this does cause some nausea which is being treated with IV Zofran. I did discuss transitioning her to oral therapy for severe pain control as PT evaluation for home care and she also can have disintegrating Zofran for nausea associated with narcotic treatment for acute pain. VPMS was reviewed and did reveal her previous prescription for tramadol which was ineffective and her infrequent prescription for Valium which she takes for anxiety or sleep and does not take daily. Valium is prescribed at the most frequent, every 6 months with 90 tablets of 5 mg. She does not endorse sedation with this medical therapy and has been doing this for years. She is a good historian. She does not appear to have high risk for substance abuse but drug screen was performed. The patient will be admitted for further evaluation by physical therapy for her safety at home using her assistive devices. She also was admitted for pain control with IV morphine and Zofran initially but this can be converted to oral therapy if needed. Her PCP can prescribe oral morphine if needed at home at discharge. There should be precaution taking opioids and benzodiazepines together and patient does not take Valium daily. She could not hold his medical therapy while on narcotics. She is a full code. Review of Systems Narrative: 13 point review of systems otherwise unrevealing or stable. PFSH All Active Problems (Updated 12/01/24 @ 07:08 by Dc Grove) Knee swelling (Acute) Fall (Acute) Acute pain of left knee (Acute) Migraine headache (Chronic) Chronic anxiety (Chronic) CKD (chronic kidney disease) stage 3, GFR 30-59 ml/min (Chronic) Pain of left knee after injury (Acute) Traumatic hematoma (Acute) Cholesteatoma (Acute) Conductive hearing loss in left ear (Acute) B12 deficiency (Acute) Tympanic membrane perforation (Acute) Osteoarthritis of right hip (Chronic) POCUS INJECTION 11/17/24 Rupture of tympanic membrane due to otitis media (Acute) Right knee pain (Acute) Mixed hearing loss (Acute) H/O aortic valve repair (Acute) Lumbar radiculopathy (Acute) Shoulder pain, right (Acute) 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) Iliotibial band syndrome, right leg (Acute) Spinal stenosis at L4-L5 level (Acute) Left bundle branch block (Acute) S/P aortic valve replacement with bioprosthetic valve (Chronic) Aortic valve replaced (Acute) 2018 [facility] Arthritis of right hip (Acute) Tear of right gluteus medius tendon (Acute) Iliotibial band syndrome of right side (Acute) Trochanteric bursitis, right hip (Acute) Injection: 05/02/21; 10/04/20; 10/16/2018 Screening for colon cancer (Acute) Diverticulitis large intestine (Acute) Aortic valve stenosis (Acute) Mitral valve regurgitation (Acute) Tricuspid valve disorder (Acute) Ventricular arrhythmia (Acute) H/O colonoscopy (Chronic ~06/2018) Diverticulosis (Chronic) Tubular adenoma (Chronic) 05/20/12; DR. LAM;TUBULAR ADENOMA ; SIGMOID DIVERTICULOSIS 06/11/18; DR. MOTA Renal insufficiency (Chronic) Globus sensation (Chronic 10/22/13) Gastroesophageal reflux disease (Chronic) Diverticulosis of colon without diverticulitis (Chronic 05/22/12) Medical History Elevated serum creatinine Low back pain radiating to left leg Cervical radiculopathy Neck pain on right side Right shoulder pain Perforation of left tympanic membrane Abdominal pain Acute diffuse otitis externa of left ear Abnormal auditory perception Cerumen impaction Sore throat Primary osteoarthritis of right hip Low back pain with sciatica (07/12/03) On amiodarone therapy (04/10/17) Skin lesion of left lower extremity (02/07/16) Trochanteric bursitis Peroneal tendonitis of right lower leg Periorbital cellulitis of right eye 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 Hallman; moderate mitral annular calcification (mild mitral insufficiency) mild on 2013 Ventricular arrhythmia sinus tachycardia; NL ECHO, NL Holter, asymptomatic on metoprolol Aortic valve stenosis needs replacement 0.7 cm Severe dysmenorrhea s/p hysterectomy 1981 Abnormal mammogram, unspecified 07/12/04 cat 3; 6 mo f/u Central perforation of tympanic membrane of left ear 01/03/16 Impacted cerumen of left ear 01/03/16 Leg skin lesion, left 02/07/16 Atrial fibrillation 04/10/17 unspecified Other prison (current) drug therapy 04/10/17 On Amiodarone Therapy Throat clearing 05/15/17 Colorectal polyps 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 w/ deficit; right Surgical History Status post abdominal hysterectomy Status post breast lumpectomy Status post carpal tunnel release Status post right cataract extraction (03/07/16) S/P breast lumpectomy 08/13/80 right breast cancer S/P abdominal hysterectomy 08/13/81 total; for dysmennorrhea S/P carpal tunnel release 08/13/00 Status post cataract extraction 03/07/16 right cataract s/p b/l cataract extraction; Dr. Proctor; 02/22/16 right; 11/07/16 left Open Carpal Tunnel release (~2000) Abdominal hysterectomy (~1981) TOTAL for dysmenorrhea HEART SURGERY 03/22/17 [facility] Extraction of cataract 02/25-RIGHT 11/07/16- LEFT DR. PROCTOR Breast, Lumpectomy (~1980) RIGHT BREAST CA Family History Mother , 84 Colon cancer Father , 89 Stomach cancer Sister A-fib Depression Heart disease Hyperlipidemia Brother , 89 Essential hypertension Dementia Heart disease PACEMAKER Hyperlipidemia Colon cancer Prostate cancer Sister Essential hypertension Hyperlipidemia Maternal Grandfather No problems noted. Paternal Grandfather No problems noted. Maternal Grandmother No problems noted. Paternal Grandmother No problems noted. 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 Counseling given: No Counseling provided: none Details: rx: diazepam Caregiver/Support person: No Household members: family Housing: house Do you need help understanding health information?: Rarely Pets and animals: No Sexually active: No Do you think of yourself as: straight/heterosexual Current gender identity: female What is your relationship status?: never How often do you talk on the phone with friends or family?: decline to answer How often do you get together with friends or relatives?: decline to answer How often do you attend orthodox or mu-ism services?: decline to answer Do you belong to any clubs or organized social groups?: decline to answer Panel score (0-1 are the most socially isolated patients): 0 What type of physical activity do you participate in: bicycling Duration: 45-60 minutes/day Frequency: 1-2 times per week Gisselle/Rastafarian: Yazidism Special gisselle needs: No Seatbelt use: always Drive intox or ride w/intox warehouse driver: No Do you feel safe at home: Yes Do you feel safe in your relationship?: Yes Meds Allergies and Home Medications Allergies Allergy/AdvReac Type Severity Reaction Status Date / Time No Known Drug Allergies Allergy NKDA Verified 11/30/24 15:21 Home Medications ?Medication ?Instructions ?Recorded ?Confirmed ?Type Aspirin/Acetaminophen/Caffeine 2 ea PO DAILY 02/19/18 11/30/24 History [Excedrin Extra Strength Caplet] multivitamin (Daily Multiple 1 ea PO DAILY 02/19/18 11/30/24 History tablet) coenzyme Q10 100 mg capsule 100 mg PO DAILY 06/10/18 11/30/24 History (CoQ-10) furosemide 40 mg tablet 40 mg PO DAILY #90 tabs 03/26/24 11/30/24 Rx levothyroxine 50 mcg tablet 50 mcg PO DAILY #90 tab-caps 04/29/24 11/30/24 Rx lisinopril 20 mg tablet 20 mg PO DAILY #90 tab-caps 04/29/24 11/30/24 Rx metoprolol succinate 50 mg 50 mg PO DAILY #90 tabs 04/29/24 11/30/24 Rx tablet,extended release 24 hr rizatriptan 10 mg disintegrating 10 mg PO BID PRN migraine headache 04/29/24 11/30/24 Rx 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 She does have a heavy Vietnamese accent. HEENT: Normocephalic, eyes with pupils equal and reactive to light symmetrically, extraocular movement intact and sclera anicteric. Oropharynx with moist mucosa. Neck: Supple without JVD. Back: Good posture without CVA tenderness. Lungs: Fair aeration and clear to auscultation and percussion. No focalizing rales or rhonchi. Breast: Exam deferred (patient is status post radiation therapy for breast cancer with MARY B[facility]). Heart: Regular rate and rhythm with 3/6 systolic murmur left sternal border. No gallops or rubs. Abdomen: Obese contour, soft and nontender with no palpable hepatosplenomegaly. Bowel sounds positive in all quadrants. Genitalia/rectal: Exam deferred. Extremities: Arthritic changes over most of her joints with the left knee swollen with Josh wrap intact. This was examined in the ED and will be examined with physical therapy evaluation. No clubbing, cyanosis or pitting edema. Skin: Normal color, warm and dry. Neuro: Cranial nerves II through XII gross intact, no focal motor deficits. No tremor. Psych: Normal affect and mood. No abnormal thought processes. Remote and recent memory intact. Results Imaging Imaging Studies: EXAM: CT LOWER EXTREMITY LT WO Date of exam: 11/30/2024 CLINICAL HISTORY: fall, inability to ambualte, L knee swelling. TECHNIQUE: Imaging Protocol: Axial computed tomography images with coronal and sagittal reformatted images were created and reviewed. CONTRAST MATERIAL: Intravenous: Omnipaque 350 Contrast volume:structured data in ml Contrast route:IV - Oral: yes / no COMPARISON: CT CT PELVIC WO from 11/30/2024 FINDINGS: SOFT TISSUES: Large prepatellar hematoma evident. This extends anterior to the patellar ligament down to and below the anterior tibial tubercle but there is no fracture at this level. This also extends for a few cm above the superior pole the patella but there does not appear to be an obvious high-grade tear of the quadriceps tendon. There is a small knee joint effusion evident. OSSEOUS/ARTICULATIONS: There is no evidence of fracture in the mid-lower femur nor at the level of the tibial plateau and proximal fibular head and neck. No evidence of patellar fracture. IMPRESSION: Prominent prepatellar hematoma as described above. No fractures evident. Small knee joint effusion noted. Exam: XR Left Femur Exam date and time: 11/30/2024 7:49 PM Age: 84 years old Clinical indication: Thigh; Left; Knee pain TECHNIQUE: Imaging protocol: Radiologic exam of the left femur. Views: 2 views. COMPARISON: CT LOWER EXTREMITY LT WO 11/30/2024 3:32 PM FINDINGS: Bones/joints: Small knee effusion. No evidence for fracture. Soft tissues: Prepatellar soft tissue swelling again seen. IMPRESSION: No evidence for fracture. Exam: XR Left Knee Exam date and time: 11/30/2024 7:48 PM Age: 84 years old Clinical indication: Injury or trauma; Fall; Blunt trauma; Left; Knee pain TECHNIQUE: Imaging protocol: Radiologic exam of the left knee. Views: 1 or 2 views. COMPARISON: CT LOWER EXTREMITY LT WO 11/30/2024 3:32 PM FINDINGS: Bones/joints: Joint effusion noted. Bone mineralization appears decreased. Alignment is essentially anatomic. No evidence for fracture. There is some heterogeneity in the distal femur, possible bone cyst or infarct. Soft tissues: There is extensive prepatellar soft tissue swelling. There appears to be some subcutaneous air in the joint. IMPRESSION: Small joint effusion. Significant prepatellar soft tissue swelling with concern for possible open wound. No evidence for fracture. EXAM: CT PELVIC WO Date of exam: 11/30/2024 CLINICAL HISTORY: fall, inability to ambulate. TECHNIQUE: Imaging Protocol: Axial computed tomography images with coronal and sagittal reformatted images were created and reviewed CONTRAST MATERIAL: Intravenous: none Oral: None COMPARISON: CT CT ABDOMEN PELVIS W from 06/11/2024 FINDING: PELVIS: OSSEOUS: No pelvic nor hip fractures evident.Advanced degenerative changes in the right hip are again noted. Small calcific density adjacent to the greater trochanter of the right hip is unchanged from 06/11/2024. The opposite-left hip appears unremarkable. No obvious pubic rami fractures evident. Chronic disc space narrowing at L4-5 level again noted. No fracture or listhesis at this level. No sacral fractures. SOFT TISSUES: No significant hematomas evident. ANTERIOR ABDOMINAL WALL/GI:No evidence of significant anterior abdominal wall nor inguinal hernia in the pelvis evident.No obvious bowel obstruction. No evidence of appendicitis.Sigmoid diverticulosis without evidence of acute diverticulitis.No free fluid in the pelvis. LYMPH NODES: There is no intrapelvic nor inguinal adenopathy. URINARY BLADDER: No calculi nor obvious masses evident REPRODUCTIVE: Uterus atrophic or surgically absent. No abnormal adnexal findings.. IMPRESSION: 1. No evidence of pelvic nor hip fractures. Advanced unilateral degenerative changes of the right hip are again noted, unchanged from 06/11/2024. 2. Sigmoid diverticulosis. No evidence of acute diverticulitis. Labs 11/30/24 15:42 11/30/24 15:42 Labs: Laboratory Results - last 24 hr 11/30/24 15:42 WBC 12.34 H RBC 4.04 Hgb 11.9 Hct 37.1 MCV 92 MCH 29.5 MCHC 32.1 RDW 13.4 Plt Count 248 MPV 10.1 Immature Gran % 0.3 Neutrophils % 77.4 Lymphocytes % 16.8 Monocytes % 4.7 Eosinophils % 0.3 Basophils % 0.5 Nucleated RBC % 0.0 Absolute Neutrophils 9.55 H Absolute Lymphocytes 2.07 Absolute Monocytes 0.58 Absolute Eosinophils 0.04 Absolute Basophils 0.06 PT 10.5 INR 1.0 APTT 23.6 Sodium 141 Potassium 4.2 Chloride 103 Carbon Dioxide 28.7 Anion Gap 9.3 BUN 19 H Creatinine 1.2 H Est GFR (CKD-EPI 2020) 44.08 Glucose 122 H Calcium 9.1 Total Bilirubin 0.2 AST 22 ALT 18 Alkaline Phosphatase 65 Total Protein 7.4 Albumin 3.7 Last Vital Signs Temp 36.6 C 11/30/24 15:10 Pulse 88 11/30/24 15:10 Resp 12 11/30/24 15:10 BP 136/64 11/30/24 15:10 Pulse Ox 96 11/30/24 15:10 Time Spent Time spent with Patient: >75 minutes Time was spent: preparing to see the patient(eg.review tests), obtaining and/or reviewing separately otained hiistory, ordering medications,tests, procedures, referring, communicating with other health caregiver assisted living, indepentently interpreting results, counseling the patient and care coordination
[2024-11-30] MEDS: MORPHine 4 MG/ML SYR IVP (19:13)
--- NOTE | 2024-11-30 20:15 | DI.VRAD_ITS ---
PROCEDURE INFORMATION: Exam: XR Left Knee Exam date and time: 11/30/2024 7:48 PM Age: 84 years old Clinical indication: Injury or trauma; Fall; Blunt trauma; Left; Knee pain TECHNIQUE: Imaging protocol: Radiologic exam of the left knee. Views: 1 or 2 views. COMPARISON: CT LOWER EXTREMITY LT WO 11/30/2024 3:32 PM FINDINGS: Bones/joints: Joint effusion noted. Bone mineralization appears decreased. Alignment is essentially anatomic. No evidence for fracture. There is some heterogeneity in the distal femur, possible bone cyst or infarct. Soft tissues: There is extensive prepatellar soft tissue swelling. There appears to be some subcutaneous air in the joint. IMPRESSION: Small joint effusion. Significant prepatellar soft tissue swelling with concern for possible open wound. No evidence for fracture. Dictated and Authenticated by: Nahomi Beauchamp MD. Orderin Joe Chris MD
[2024-11-30 20:18] LABS: COVID-19 PCR Negative (Negative); Influenza A PCR Negative (Negative); Influenza B PCR Negative (Negative); RSV PCR Negative (Negative)
--- NOTE | 2024-11-30 20:19 | DI.VRAD_ITS ---
PROCEDURE INFORMATION: Exam: XR Left Femur Exam date and time: 11/30/2024 7:49 PM Age: 84 years old Clinical indication: Thigh; Left; Knee pain TECHNIQUE: Imaging protocol: Radiologic exam of the left femur. Views: 2 views. COMPARISON: CT LOWER EXTREMITY LT WO 11/30/2024 3:32 PM FINDINGS: Bones/joints: Small knee effusion. No evidence for fracture. Soft tissues: Prepatellar soft tissue swelling again seen. IMPRESSION: No evidence for fracture. Dictated and Authenticated by: Nahomi Beauchamp MD. Orderin Joe Chris MD
[2024-11-30 20:21] LABS: Source Nasopharynx
--- NOTE | 2024-11-30 20:50 | W.PC.ACHO ---
Registration Status: Primary Language: Preferred Language: ED Information & Data Chief Complaint Orthopedic 11/30/24 17:11 Triage Note Patient presented with EMS 11/30/24 15:10 after falling and hitting her left knee first then her left hand but no head strike. pre medicated by ems with a total of 100mcg of fentanyl. Patient reported pain to be 7/10. Patient state initial pain was in the back of her knee, but now its localized to the front of her knee cap. Medical / Surgical History (Last Reviewed 10/02/24 @ 14:14 by Regino Ahn MD) Elevated serum creatinine Low back pain radiating to left leg Cervical radiculopathy Neck pain on right side Right shoulder pain Perforation of left tympanic membrane Abdominal pain Acute diffuse otitis externa of left ear Abnormal auditory perception Cerumen impaction Sore throat Primary osteoarthritis of right hip Low back pain with sciatica (07/12/03) On amiodarone therapy (04/10/17) Skin lesion of left lower extremity (02/07/16) Trochanteric bursitis Peroneal tendonitis of right lower leg Periorbital cellulitis of right eye 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 Ventricular arrhythmia Aortic valve stenosis Severe dysmenorrhea Abnormal mammogram, unspecified Central perforation of tympanic membrane of left ear Impacted cerumen of left ear Leg skin lesion, left Atrial fibrillation Other senior living (current) drug therapy Throat clearing Colorectal polyps 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) Trochanteric bursitis Osteoporosis Neoplasm of unspecified nature of bone, soft tissue, and skin (01/03/16) Malignant neoplasm of female breast (07/12/80) Low back pain (07/12/03) Lumbago (07/12/03) Hypothyroidism (12/26/10) Hyperlipidemia (12/02/12) Hearing loss Headache Essential hypertension (07/07/13) Elev transaminase/LDH (05/12/10) Dysphonia (06/04/17) Carpal tunnel syndrome (Last Reviewed 10/02/24 @ 14:14 by Regino Ahn MD) Status post abdominal hysterectomy Status post breast lumpectomy Status post carpal tunnel release Status post right cataract extraction (03/07/16) S/P breast lumpectomy S/P abdominal hysterectomy S/P carpal tunnel release Status post cataract extraction Open Carpal Tunnel release (~2000) Abdominal hysterectomy (~1981) HEART SURGERY Extraction of cataract Breast, Lumpectomy (~1980) Most Recent Vital Signs Temperature 36.6 C 11/30/24 15:10 Temperature Source Temporal Artery Scan 11/30/24 15:10 Pulse 88 11/30/24 15:10 Respiratory Rate 12 11/30/24 15:10 Blood Pressure 136/64 11/30/24 15:10 Blood Pressure Position Supine 11/30/24 15:10 Pulse Oximetry 96 11/30/24 15:10 Oxygen Delivery Method Room Air 11/30/24 15:10 Oxygen Flow Rate 0 11/30/24 15:10 Pain Level 7 11/30/24 19:13 Allergies No Known Drug Allergies Allergy (Verified 11/30/24 15:21) NKDA IV IV Catheter Type [Left Saline Lock Antecubital] IV Catheter Gauge [Left 20 Antecubital] Diagnostics 11/30/24 11/30/24 Range/Units 19:30 15:42 WBC 12.34 H (4.4-10.8) 10^3/uL RBC 4.04 (3.93-5.22) 10^6/uL Hgb 11.9 (11.2-15.7) g/dL Hct 37.1 (36.0-46.0) % MCV 92 (80-95) fL MCH 29.5 (27.0-33.0) pg MCHC 32.1 (32.0-36.0) % RDW 13.4 (11.7-14.6) % Plt Count 248 (130-400) 10^3/uL MPV 10.1 (8.0-11.0) fL Immature Gran % 0.3 % Neutrophils % 77.4 % Lymphocytes % 16.8 % Monocytes % 4.7 % Eosinophils % 0.3 % Basophils % 0.5 % Nucleated RBC % 0.0 (0.0-0.3) % Absolute Neutrophils 9.55 H (1.2-6.7) 10^3/uL Absolute Lymphocytes 2.07 (1.2-3.4) 10^3/uL Absolute Monocytes 0.58 (0.1-0.8) 10^3/uL Absolute Eosinophils 0.04 (0.0-0.7) 10^3/uL Absolute Basophils 0.06 (0.0-0.2) 10^3/uL PT 10.5 (9.1-11.1) sec INR 1.0 (0.9-1.1) APTT 23.6 (20.6-30.2) sec Sodium 141 (136-145) mmol/L Potassium 4.2 (3.5-5.1) mmol/L Chloride 103 (98-107) mmol/L Carbon Dioxide 28.7 (21.0-32.0) mmol/L Anion Gap 9.3 (3-11) mmol/L BUN 19 H (7-18) mg/dL Creatinine 1.2 H (0.55-1.02) mg/dL Est GFR (CKD-EPI 2020) 44.08 (mL/min/1.73m2) Glucose 122 H (74-106) mg/dL Calcium 9.1 (8.5-10.1) mg/dL Total Bilirubin 0.2 (0.2-1.0) mg/dL AST 22 (15-37) U/L ALT 18 (14-59) U/L Alkaline Phosphatase 65 (46-116) U/L Total Protein 7.4 (6.4-8.2) g/dL Albumin 3.7 (3.4-5.0) g/dL COVID-19 Source Pending SARS-CoV-2 (PCR) Pending Influenza Type A (PCR) Pending Influenza Type B (PCR) Pending RSV (PCR) Pending Intake and Output - 24 Hour Total 11/30/24 14:49 thru 11/30/24 18:32 Intake Total 100 Balance 100 Weight 77.2 kg Intake: IV 100 Falls Risk Assessment History of Falls Admit Due to Fall 11/30/24 15:19 Contributing Factors Impairments,Medications 11/30/24 15:19 Ambulatory Aids Uses ambulatory device 11/30/24 15:19 Tubes/Lines W/no contributing factors 11/30/24 15:19 Gait Evaluation W/no contributing factors 11/30/24 15:19 Cognition No cognitive impairment 11/30/24 15:19 Fall Total Score 66 11/30/24 15:19 Level of Risk High Risk 11/30/24 15:19 Problems (Last Reviewed 10/02/24 @ 14:14 by Regino Ahn MD) Migraine headache (Chronic) Chronic anxiety (Chronic) CKD (chronic kidney disease) stage 3, GFR 30-59 ml/min (Chronic) Pain of left knee after injury (Acute) Traumatic hematoma (Acute) S/P aortic valve replacement with bioprosthetic valve (Chronic) Atrial fibrillation (Chronic 04/10/17) v v v v v v v v v Sending and/or Receiving Nurses: Please use comment section below to note any information pertinent to the patient hand-off not included above. Information / Comments: Pt had a fall, L knee severely swollen, non weight bearing on the affected site. . Report received from: initial call @2007 pm in ED. Nurse unavailable: call back @ 2041 from Elisabet
[2024-11-30] MEDS: Simvastatin 40 MG TAB PO (22:14)
[2024-11-30] MEDS: Heparin 5,000 UNITS/ML VIAL 5000 UNITS SC (22:14)
[2024-11-30] MEDS: Normal Saline Flush 10 ML SYR IVP ×2 (22:19→23:49)
[2024-11-30 22:37] LABS: Magnesium 2.4 mg/dL (1.8-2.4); TSH (W/Ref FT4) 3.03 uIU/mL (0.36-3.74)
[2024-12-01] VITALS (7 sets, daily range): BP systolic 92–116; BP diastolic 40–66; PULSE 62–99; RESP 15–19; TEMP 36.5–37.1; O2SAT 94–96
[2024-12-01] MEDS: Levothyroxine 50 MCG TAB PO (05:47)
[2024-12-01] MEDS: Heparin 5,000 UNITS/ML VIAL 5000 UNITS SC ×3 (05:48→22:08)
[2024-12-01 06:26] LABS: *AMPHETAMINES SCREEN URINE Negative (Negative); *BARBITURATES SCREEN URINE Negative (Negative); *BENZODIAZEPINES SCREEN URINE Positive (Negative); Cannabinoids THC Negative (Negative); Cocaine Screen,Urine Negative (Negative); METHADONE URINE SCREEN Negative (Negative); OPIATES URINE SCREEN Positive (Negative)
[2024-12-01 06:28] LABS: Tricyclic Antidepressants Negative (Negative)
[2024-12-01 06:45] LABS: HCT 32.8 % (36.0-46.0); HGB 10.4 g/dL (11.2-15.7); MCH 29.7 pg (27.0-33.0); MCHC 31.7 % (32.0-36.0); MCV 94 fL (80-95); MPV 10.1 fL (8.0-11.0); Platelet Count 238 10^3/uL (130-400); RDW 13.9 % (11.7-14.6); RDW-SD 47.5 fL; WBC 8.84 10^3/uL (4.4-10.8)
[2024-12-01 07:05] LABS: ALT 17 U/L (14-59); AST 19 U/L (15-37); Albumin 3.2 g/dL (3.4-5.0); Alkaline Phosphatase 60 U/L (46-116); Anion Gap 4.7 mmol/L (3-11); BUN 23 mg/dL (7-18); Bilirubin, Total 0.4 mg/dL (0.2-1.0); CO2 31.3 mmol/L (21.0-32.0); CREATININE 1.3 mg/dL (0.55-1.02); Chloride 105 mmol/L (98-107); Estimated GFR 40.05 (mL/min/1.73m2); Glucose 119 mg/dL (74-106); Magnesium 2.5 mg/dL (1.8-2.4); Potassium 4.3 mmol/L (3.5-5.1); Sodium 141 mmol/L (136-145); Total Protein 6.7 g/dL (6.4-8.2)
[2024-12-01] MEDS: Normal Saline Flush 10 ML SYR IVP ×3 (08:11→22:57)
[2024-12-01] MEDS: Pantoprazole 40 MG TABCR PO (08:11)
[2024-12-01] MEDS: Metoprolol CR 50 MG TABCR PO (08:11)
[2024-12-01] MEDS: Furosemide 40 MG TAB PO (08:11)
[2024-12-01] MEDS: Lisinopril 20 MG TAB PO (08:12)
[2024-12-01] MEDS: Multivitamin TAB 1 TAB PO (08:15)
[2024-12-01 08:48] LABS: Bilirubin Negative (Negative); Blood Negative (Negative); Clarity Clear (Clear); Glucose Negative (Negative); Ketones Negative (Negative); Leukocyte Esterase Negative (Negative); Nitrite Negative (Negative); Urobilinogen 0.2 mg/dL (Up to 0.2)
[2024-12-01] MEDS: Acetaminophen 250 mg/Aspirin 250 mg/Caffeine 65 mg TAB 2 EACH PO ×2 (09:20→22:08)
--- NOTE | 2024-12-01 09:37 | PDOC.CMIN ---
Date of service: 12/01/24 Time of Service: 09:38 Care Management Initial Assmt Initial Assessment Reason for Hospitalization: Left knee hematoma s/p fall Functional Status/Living Situation Patient Presentation: Fiorella is an 84-year-old lady who had a mechanical fall at home, tripping and falling with her full weight on her left knee. She has a hematoma on that knee[place] [facility] [place], and stated that the knee did not need to be drained. Early mobility and observation will be expected treatment. She had a PT evaluation today, and reportedly did really well. PT is encouraging PT. Fiorella was sitting up in the bedside chair when CM met with her this afternoon. She had just finished working with PT for the second time today. She stated that she had some pain while walking, but that is to be expected. She is hoping to go home tomorrow. Fiorella lives with her sister. Fiorella is the main source of transportation, as her sister doesn't drive. Fiorella stated that she only drives short distances, and her niece helps for any long distance driving. Town of Residence: [place] Resides with: Other (sister - Lady) Significant Other/Family: Local (sister Lady and niece Macy ) Natural Supports: family Employment Status: Retired Instrumental Activities of Daily Living (ADLs): Independent (Fiorella is still very independent in her home and the community) Activities/Hobbies/SocialSupport: enjoys playing games on her tablet. Likes playing slots Medications Medication Management: No Issues/Barriers identified Physical Functioning/Mobility Assistive Device: uses a walking stick at times. Is being issued a FWW by PT Advance Directives Advance Directives: Do you have an Advance Directive: Y 07/09/13 15:47 AD On File at [facility]: Y 10/15/12 14:19 Date Asked 06/11/24 06/11/24 21:19 AD Date Reviewed 11/30/24 11/30/24 15:03 COLST On File at [facility] COLST Date Scanned Code Status Resuscitation Status Full Code Portal Pt does not currently have a portal and education provided: Yes Insurance Coverage/Financial Issues Insurance: Medicare Part A & B AARP MCR Supplemental? Care Team Visit Care Team Role Provider Type Josie Dawson APRN MD [facility] STAFF PHYSICIAN Tamie Mary MD, [place] Primary Care Provider [facility] InPatient Rey Berumen Other Providers OTHER Dot Diaz MD Emergency Provider [facility] STAFF PHYSICIAN Dc Grove Admit Provider NON-[facility] STAFF PHYSICIAN Attending Provider Discharge Potential Discharge Needs: PT Evaluation and PCP F/U Appt Anticipated Barriers to Discharge: None Identified Patient/Family Education Needs: Review discharge instructions, discuss Ask Me Three Transportation: Private vehicle Plan: Anticipate that Fiorella will be discharged home with new services of HH PT/vs oupatient PT. She will f/u with her PCP and continue per her plan of care. Fiorella will transport home in a private vehicle if her niece is available, otherwise RCT. CM will continue to follow and to update the plan as needed. Social Determinants of Health Screening Social Determinants of health last assessed in clinic: 12/01/24 Will the Patient Participate in the Screening?: Yes Do you worry about having a steady place to live?: no Problems where you live: no known problems In the past 12 months, have you had to go without electric, gas, oil or water in your home?: no 1. Within the past 12 months, we worried whether our food would run out before we got money to buy more.: Never true 2. Within the past 12 months, the food we bought just didn't last and we didn't have money to get more.: Never true Has lack of transportation kept you from medical appointments or from doing things needed for daily living?: no Has anyone in your life made you feel unsafe or unsupported?: no How hard is it for you to pay for the very basics like food, housing, medical care, and heating? Would you say it is:: Not hard at all Do you want help finding or keeping work or a job?: I do not need or want help If for any reason you need help with day-to-day activities such as bathing, preparing meals, shopping, managing finances, etc., do you get the help you need?: I don?t need any help How often do you feel lonely or isolated from those around you?: Never Do you speak a language other than Luxembourgish at home?: Yes Does the patient want assistance with any of the above?: No Comments: Also speaks Arabic Health Related Social Needs Health related social needs: education (Z55.6) PFSH All Active Problems (Updated 12/01/24 @ 07:08 by Dc Grove) Knee swelling (Acute) Fall (Acute) Acute pain of left knee (Acute) Migraine headache (Chronic) Chronic anxiety (Chronic) CKD (chronic kidney disease) stage 3, GFR 30-59 ml/min (Chronic) Pain of left knee after injury (Acute) Traumatic hematoma (Acute) Cholesteatoma (Acute) Conductive hearing loss in left ear (Acute) B12 deficiency (Acute) Tympanic membrane perforation (Acute) Osteoarthritis of right hip (Chronic) POCUS INJECTION 11/17/24 Rupture of tympanic membrane due to otitis media (Acute) Right knee pain (Acute) Mixed hearing loss (Acute) H/O aortic valve repair (Acute) Lumbar radiculopathy (Acute) Shoulder pain, right (Acute) 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) Iliotibial band syndrome, right leg (Acute) Spinal stenosis at L4-L5 level (Acute) Left bundle branch block (Acute) S/P aortic valve replacement with bioprosthetic valve (Chronic) Aortic valve replaced (Acute) [place] [facility] Arthritis of right hip (Acute) Tear of right gluteus medius tendon (Acute) Iliotibial band syndrome of right side (Acute) Trochanteric bursitis, right hip (Acute) Injection: 05/02/21; 10/04/20; 10/16/2018 Screening for colon cancer (Acute) Diverticulitis large intestine (Acute) Aortic valve stenosis (Acute) Mitral valve regurgitation (Acute) Tricuspid valve disorder (Acute) Ventricular arrhythmia (Acute) H/O colonoscopy (Chronic ~06/2018) Diverticulosis (Chronic) Tubular adenoma (Chronic) 05/20/12; DR. LAM;TUBULAR ADENOMA ; SIGMOID DIVERTICULOSIS 06/11/18; DR. MOTA Renal insufficiency (Chronic) Globus sensation (Chronic 10/22/13) Gastroesophageal reflux disease (Chronic) Diverticulosis of colon without diverticulitis (Chronic 05/22/12) Medical History Elevated serum creatinine Low back pain radiating to left leg Cervical radiculopathy Neck pain on right side Right shoulder pain Perforation of left tympanic membrane Abdominal pain Acute diffuse otitis externa of left ear Abnormal auditory perception Cerumen impaction Sore throat Primary osteoarthritis of right hip Low back pain with sciatica (07/12/03) On amiodarone therapy (04/10/17) Skin lesion of left lower extremity (02/07/16) Trochanteric bursitis Peroneal tendonitis of right lower leg Periorbital cellulitis of right eye 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 Hallman; moderate mitral annular calcification (mild mitral insufficiency) mild on 2013 Ventricular arrhythmia sinus tachycardia; NL ECHO, NL Holter, asymptomatic on metoprolol Aortic valve stenosis needs replacement 0.7 cm Severe dysmenorrhea s/p hysterectomy 1981 Abnormal mammogram, unspecified 07/12/04 cat 3; 6 mo f/u Central perforation of tympanic membrane of left ear 01/03/16 Impacted cerumen of left ear 01/03/16 Leg skin lesion, left 02/07/16 Atrial fibrillation 04/10/17 unspecified Other tank terminal gauger (current) drug therapy 04/10/17 On Amiodarone Therapy Throat clearing 05/15/17 Colorectal polyps 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 w/ deficit; right Surgical History Status post abdominal hysterectomy Status post breast lumpectomy Status post carpal tunnel release Status post right cataract extraction (03/07/16) S/P breast lumpectomy 08/13/80 right breast cancer S/P abdominal hysterectomy 08/13/81 total; for dysmennorrhea S/P carpal tunnel release 08/13/00 Status post cataract extraction 03/07/16 right cataract s/p b/l cataract extraction; Dr. Proctor; 02/22/16 right; 11/07/16 left Open Carpal Tunnel release (~2000) Abdominal hysterectomy (~1981) TOTAL for dysmenorrhea HEART SURGERY 03/22/[place] [facility] [place]raction of cataract 02/25-RIGHT 11/07/16- LEFT DR. PROCTOR Breast, Lumpectomy (~1980) RIGHT BREAST CA Family History Mother , 84 Colon cancer Father , 89 Stomach cancer Sister A-fib Depression Heart disease Hyperlipidemia Brother , 89 Essential hypertension Dementia Heart disease PACEMAKER Hyperlipidemia Colon cancer Prostate cancer Sister Essential hypertension Hyperlipidemia Maternal Grandfather No problems noted. Paternal Grandfather No problems noted. Maternal Grandmother No problems noted. Paternal Grandmother No problems noted. 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 Counseling given: No Counseling provided: none Details: rx: diazepam Caregiver/Support person: No Household members: family Housing: house Do you need help understanding health information?: Rarely Pets and animals: No Sexually active: No Do you think of yourself as: straight/heterosexual Current gender identity: female What is your relationship status?: never How often do you talk on the phone with friends or family?: decline to answer How often do you get together with friends or relatives?: decline to answer How often do you attend buddhist or jehovah's witness services?: decline to answer Do you belong to any clubs or organized social groups?: decline to answer Panel score (0-1 are the most socially isolated patients): 0 What type of physical activity do you participate in: bicycling Duration: 45-60 minutes/day Frequency: 1-2 times per week Gisselle/Yazidism: Taoism Special gisselle needs: No Seatbelt use: always Drive intox or ride w/intox hazardous materials tanker driver: No Do you feel safe at home: Yes Do you feel safe in your relationship?: Yes Readmission Within the Past 30 Days Yes or No: No
--- NOTE | 2024-12-01 10:14 | PGE_ITS ---
Date of Service Date of service: 12/01/24 Time of Service: 10:14 Assessment and Plan Assessment and plan (1) Traumatic hematoma: Start date: 11/30/24 Status: Acute Assessment and plan: To left knee s/p mechanical fall from the [facility] restaurant w + hematoma and small knee effusion with no evidence of fracture Continue physical therapy-Walker, stairs this PM Orthopedic consulted from [facility] stating that it did not need to be drained. Return home when she is seen ambulating with assistive device and is on adequate pain management Add scheduled APAP and continue PRN oral morphine immediate release tablets and disintegrating Zofran PRN for nausea associated with narcotic use past. Avoid Valium while on morphine (2) Pain of left knee after injury: Start date: 11/30/24 Status: Acute Assessment and plan: As above (3) Chronic anxiety: Status: Chronic Assessment and plan: Patient is on chronic Valium and is to be minimized especially if she is oral morphine. Continue to follow-up PCP. (4) Atrial fibrillation: Status: Resolved Assessment and plan: Telemetry SR no chronic anticoagulation but ongoing metoprolol for blood pressure control. (5) CKD (chronic kidney disease) stage 3, GFR 30-59 ml/min: Status: Chronic Assessment and plan: Cr 1.3 stable continue trending (6) Essential hypertension: Assessment and plan: Ongoing outpatient medical therapy w lisinopril, adjusting as needed. (7) S/P aortic valve replacement with bioprosthetic valve: Status: Chronic Assessment and plan: Does not require anticoagulation. (8) Hyperlipidemia: Assessment and plan: Continue home dose statin therapy. (9) Hypothyroidism: Assessment and plan: TSH 3.03 - continue outpatient levothyroxine dosing (10) Migraine headache: Status: Chronic Assessment and plan: Patient is not on Fioricet daily but takes excedrin - one dose given Does not really take ablative therapy with rizatriptan disintegrating tablets. Discussed with Dr. Smith Exam Narrative Exam Narrative: Constitutional 84 yo female patient looking younger than stated age, sitting in chair without acute distress HENMT: Facial structures with normal appearance Neuro:alert and oriented X4 , no neurological focal deficit Resp: Unlabored breathing, clear lung bilaterally Cardio: regular rhythm, S1, S2, + murmur, capillary refill<3 sec., bilateral radial and dorsalis pedis pulses are positive GI: Abdomen is not distended, soft and non tender, bowel sounds are present Back/spine/Pelvis: No back tenderness, normal alignment Integumentary:limited subcutaneous hematoma to left knee Extremities: strength 4/5 Aiyana, left knee flexion 90% Psych: RASS 0, congruent mood and normal affect. Objective Last Vital Signs Temp 37.1 C 12/01/24 07:28 Pulse 98 H 12/01/24 07:28 Resp 18 12/01/24 07:28 BP 116/55 L 12/01/24 07:28 Pulse Ox 95 12/01/24 07:28 Laboratory Results - last 24 hr 11/30/24 11/30/24 12/01/24 15:42 19:30 05:57 WBC 12.34 H RBC 4.04 Hgb 11.9 Hct 37.1 MCV 92 MCH 29.5 MCHC 32.1 RDW 13.4 Plt Count 248 MPV 10.1 Immature Gran % 0.3 Neutrophils % 77.4 Lymphocytes % 16.8 Monocytes % 4.7 Eosinophils % 0.3 Basophils % 0.5 Nucleated RBC % 0.0 Absolute Neutrophils 9.55 H Absolute Lymphocytes 2.07 Absolute Monocytes 0.58 Absolute Eosinophils 0.04 Absolute Basophils 0.06 PT 10.5 INR 1.0 APTT 23.6 Sodium 141 Potassium 4.2 Chloride 103 Carbon Dioxide 28.7 Anion Gap 9.3 BUN 19 H Creatinine 1.2 H Est GFR (CKD-EPI 2020) 44.08 Glucose 122 H Calcium 9.1 Magnesium 2.4 Total Bilirubin 0.2 AST 22 ALT 18 Alkaline Phosphatase 65 Total Protein 7.4 Albumin 3.7 TSH 3.03 Urine Color Yellow Urine Clarity Clear Urine pH 6.0 Ur Specific [place] 1.020 Urine Protein Negative Urine Ketones Negative Urine Blood Negative Urine Nitrite Negative Urine Bilirubin Negative Urine Urobilinogen 0.2 Ur Leukocyte Esterase Negative Urine Glucose Negative Urine Opiates Screen Positive A Urine Methadone Screen Negative Ur Barbiturates Screen Negative Ur Tricyclics Screen Negative Ur Amphetamines Screen Negative U Benzodiazepines Scrn Positive A Urine Cocaine Screen Negative Ur THC Screen Negative COVID-19 Source Nasopharynx SARS-CoV-2 (PCR) Negative Influenza Type A (PCR) Negative Influenza Type B (PCR) Negative RSV (PCR) Negative 12/01/24 06:25 WBC 8.84 RBC 3.50 L Hgb 10.4 L Hct 32.8 L MCV 94 MCH 29.7 MCHC 31.7 L RDW 13.9 Plt Count 238 MPV 10.1 Immature Gran % Neutrophils % Lymphocytes % Monocytes % Eosinophils % Basophils % Nucleated RBC % Absolute Neutrophils Absolute Lymphocytes Absolute Monocytes Absolute Eosinophils Absolute Basophils PT INR APTT Sodium 141 Potassium 4.3 Chloride 105 Carbon Dioxide 31.3 Anion Gap 4.7 BUN 23 H Creatinine 1.3 H Est GFR (CKD-EPI 2020) 40.05 Glucose 119 H Calcium 9.0 Magnesium 2.5 H Total Bilirubin 0.4 AST 19 ALT 17 Alkaline Phosphatase 60 Total Protein 6.7 Albumin 3.2 L TSH Urine Color Urine Clarity Urine pH Ur Specific [place] Urine Protein Urine Ketones Urine Blood Urine Nitrite Urine Bilirubin Urine Urobilinogen Ur Leukocyte Esterase Urine Glucose Urine Opiates Screen Urine Methadone Screen Ur Barbiturates Screen Ur Tricyclics Screen Ur Amphetamines Screen U Benzodiazepines Scrn Urine Cocaine Screen Ur THC Screen COVID-19 Source SARS-CoV-2 (PCR) Influenza Type A (PCR) Influenza Type B (PCR) RSV (PCR) Time Spent with Patient Time Spent with Patient: >50 minutes Time was spent: preparing to see the patient(eg.review tests), obtaining and/or reviewing separately otained hiistory, ordering medications,tests, procedures, referring, communicating with other health ambulatory care nurse, indepentently interpreting results, counseling the patient and care coordination
--- NOTE | 2024-12-01 11:14 | PT.INIE ---
PT Notes Visit Reasons: Hematoma Left Knee,Left Knee Effusion/Pain Status Physical Therapy Initial Initial Evaluation Date: 12/01/2024 Referring Doctor: Dr. Grove PT Orders: PT CONSULT: PT evaluation Precautions: Activity as tolerated Patient Profile/Admitting Diagnosis: Patient is 84-year-old female presented to the ED status post trip fall outside a restaurant landing on left knee x-rays negative for fracture. Positive effusion and hematoma. Ortho consult determined no need for drain of the effusion. PMHX: Knee swelling (Acute) Fall (Acute) Acute pain of left knee (Acute) Migraine headache (Chronic) Chronic anxiety (Chronic) CKD (chronic kidney disease) stage 3, GFR 30-59 ml/min (Chronic) Pain of left knee after injury (Acute) Traumatic hematoma (Acute) Cholesteatoma (Acute) Conductive hearing loss in left ear (Acute) B12 deficiency (Acute) Tympanic membrane perforation (Acute) Osteoarthritis of right hip (Chronic) POCUS INJECTION 11/17/24Rupture of tympanic membrane due to otitis media (Acute) Right knee pain (Acute) Mixed hearing loss (Acute) H/O aortic valve repair (Acute) Lumbar radiculopathy (Acute) Shoulder pain, right (Acute) 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) Iliotibial band syndrome, right leg (Acute) Spinal stenosis at L4-L5 level (Acute) Left bundle branch block (Acute) S/P aortic valve replacement with bioprosthetic valve (Chronic) Aortic valve replaced (Acute) [facility] (Acute) Tear of right gluteus medius tendon (Acute) Iliotibial band syndrome of right side (Acute) Trochanteric bursitis, right hip (Acute) Injection: 05/02/21; 10/04/20; 10/16/2018Screening for colon cancer (Acute) Diverticulitis large intestine (Acute) Aortic valve stenosis (Acute) Mitral valve regurgitation (Acute) Tricuspid valve disorder (Acute) Ventricular arrhythmia (Acute) H/O colonoscopy (Chronic ~06/2018) Diverticulosis (Chronic) Tubular adenoma (Chronic) 05/20/12; DR. LAM;TUBULAR ADENOMA ; SIGMOID DIVERTICULOSIS 06/11/18; DR. MOTA Renal insufficiency (Chronic) Globus sensation (Chronic 10/22/13) Gastroesophageal reflux disease (Chronic) Diverticulosis of colon without diverticulitis (Chronic 05/22/12) Medical History Elevated serum creatinine Low back pain radiating to left leg Cervical radiculopathy Neck pain on right side Right shoulder pain Perforation of left tympanic membrane Abdominal pain Acute diffuse otitis externa of left ear Abnormal auditory perception Cerumen impaction Sore throat Primary osteoarthritis of right hip Low back pain with sciatica (07/12/03) On amiodarone therapy (04/10/17) Skin lesion of left lower extremity (02/07/16) Trochanteric bursitis Peroneal tendonitis of right lower leg Periorbital cellulitis of right eye 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 w/ deficit; right Surgical History Status post abdominal hysterectomy Status post breast lumpectomy Status post carpal tunnel release Status post right cataract extraction (03/07/16) S/P breast lumpectomy 08/13/80 right breast cancerS/P abdominal hysterectomy 08/13/81 total; for dysmennorrheaS/P carpal tunnel release 08/13/00Status post cataract extraction 03/07/16 right cataract s/p b/l cataract extraction; Dr. Proctor; 02/22/16 right; 11/07/16 leftOpen Carpal Tunnel release (~2000) Abdominal hysterectomy (~1981) TOTAL for dysmenorrheaHEART SURGERY 03/22/17 [facility] [place] 02/[place]-RIGHT 11/07/16- LEFT DR. PROCTORBreast, Lumpectomy (~1980) RIGHT BREAST CA Social History/Home Situation: Patient resides in a single-family home with her sister with 6 steps to enter and left rail.. Patient independent ADLs ambulation without a device, home management, light meal prep. Patient drives Equipment Owned/DME: Walker and crutches Subjective: Objective: [] General Observation: Female seated upright in the bed watching television Josh wrap to left knee. Mental Status: Alert and oriented x 4, able to follow instructions, cooperative, agreeable to participate in evaluation Pain: Left knee 2?3/10 ROM: [] Right Upper Extremity: WNL Left Upper Extremity: WNL Right Lower Extremity: WNL Left Lower Extremity: Hip and ankle WNL knee 0 to 90 degrees patient reports tightness at endrange Strength: [] Right Upper Extremity: 5/5 Left Upper Extremity: 5/5 Right Lower Extremity: 5/5 Left Lower Extremity: Hip 3/5 grossly , knee extension 3/5 in available range, knee flexion 3 -/5, ankle 3/5 Sensation: Intact Bed Mobility/Transfers: [] Supine to sit independent Sit to stand supervision cues for hand placement Stand to sit supervision cues for hand placement Bed to chair SBA with FWW Gait: SBA with FWW 50 feet demonstrating reduced left knee flexion during swing phase patient able to tolerate weightbearing left lower extremity during mid stance Balance: [] Static Sitting: Normal Dynamic Sitting: Good Static Standing: Good Dynamic Standing: Fair plus Special Tests: [] Mobility Limitations Standardized Measure [] [employer] AM-PAC 6 clicks Basic Mobility Inpatient Short Form: [] Raw Score: 19 CMS Score: 41.77% Informed Consent/Education: Patient instructed in purpose of PT consult. educated on use of ice and elevation to manage pain. Treatment: 12703 facilitation of transfers with patient pushing up from surfaces requiring verbal cues and contact-guard's from elevated surface height 20 inches x 3 trials patient required min assist from 18 inch height due to limitations in knee flexion. BLE exercise quad set, SAQ, ankle pumps x 10 reps At end of session ice applied to left knee( nurse aware) Assessment: Patient presents with clinical signs and symptoms consistent with current/admitting diagnoses that have resulted to mobility limitations, gait instability, generalized weakness, and impairment of motor control as demonstrated by the following impairment level findings: 1. Decreased strength to left knee major muscle groups 2. Impaired standing balance 3. Limitation of joint range of motion in left knee 4. Impaired functional activity tolerance 5. pain in left knee Impairments are contributing to the following functional limitations: 1. Inability to safely ambulate without assistive device 2. Increase completion time for mobility ADL performance 3. Increased fall risk 4. decline in transfer skills 5. difficulty performing stairs with railing Patient is assessed as a low complexity based on the following: History: 84-year-old female with impairment level findings, functional limitations, and past medical history as indicated above Examination: Demonstrable impairment in strength, balance, and mobility level with underlying impairments and functional limitations as documented above Presentation: stable Decision Making: low Goals: 1. independent transfers with FWW 2. Independent ambulation with FWW >150 feet 3. Supervision 4 steps with rail to safely enter and exit home 4. Supervision HEP for LE strengthening and ROM Plan of Care/Treatment Plan: . PT evaluation and 1-2 treatment session only for functional mobility training using recommended AD and for HEP instruction. DISCHARGE RECOMMENDATIONS: Home with HEP and HHPT when medically appropriate TREATMENT CODE/TIME:99369, [id number] Thank you for the opportunity to participate in the care of this patient. Nu Robert PT [facility]
--- NOTE | 2024-12-01 14:54 | PT.INTREAT ---
PT Notes Visit Reasons: Hematoma Left Knee,Left Knee Effusion/Pain Status Inpatient Physical Therapy Treatment Note [facility] Date: 12/01/24 SUBJECTIVE: Fiorella states that she is feeling ok, other than her knee feeling tight. OBJECTIVE: []? VITALS: ?monitored by nsg. Therapeutic Activities (73919i1): Direct one-on-one instruction in dynamic activities to improve functional performance. ? BED MOBILITY/TRANSFERS? sitting in recliner? Sit-stand: SBA? Stand-sit: SBA ? Provided skilled cues and instruction on performance and technique throughout. GAIT: Assistive Device: FWW? Weight bearing: AT Assist: CGA ? Distance:? 75'x2 ? Deviation: shortened stride length, decreased heel strike and push off? STAIRS:ascended/descended 2x6 steps and 3x 4 steps (X2) with 2 rails. Step to gait pattern with SBA. ? Therapeutic Exercises ([id number]): Direct one-on-one instruction in therapeutic exercises to develop strength, endurance, range of motion and flexibility. ? Exercises ? ROM of left knee in sitting and standing positions. APs with leg elevated, LAQ x10. Ambulation ? Assistive Device: FWW? Weight bearing: AT Assist: CGA ? Distance:? 75'x2 ? Deviation: shortened stride length, decreased heel strike and push off? Provided skilled instruction in proper exercise performance ASSESSMENT:?tolerated session well. No pain with wt bearing. Reminders/cues for proper stair negotiation. Also encouraged her to bend knee as much as possible. Ice with elevation to help decrease the swelling. PLAN: possible d/c to home tomorrow. Will continue to work on her functional mobility and ROM to tolerance. TREATMENT CODE/TIME: 25 min [id number], [id number] DISCHARGE RECOMMENDATION: home with HHPT
[2024-12-01] MEDS: MORPHine IR 15 MG TAB 7.5 MG PO (20:08)
[2024-12-01] MEDS: Simvastatin 40 MG TAB PO (20:08)
[2024-12-01] MEDS: MORPHine 2 MG/ML SYR 1 MG IVP (22:55)
[2024-12-02 03:25] VITALS: BP 98/50; PULSE 98; RESP 19; TEMP 36.7; O2SAT 90
[2024-12-02] MEDS: Levothyroxine 50 MCG TAB PO (06:16)
[2024-12-02] MEDS: Heparin 5,000 UNITS/ML VIAL 5000 UNITS SC (06:16)
[2024-12-02] MEDS: Pantoprazole 40 MG TABCR PO (06:32)
[2024-12-02 06:57] LABS: HCT 31.5 % (36.0-46.0); HGB 10.1 g/dL (11.2-15.7); MCH 29.4 pg (27.0-33.0); MCHC 32.1 % (32.0-36.0); MCV 92 fL (80-95); MPV 10.6 fL (8.0-11.0); Platelet Count 236 10^3/uL (130-400); RBC 3.44 10^6/uL (3.93-5.22); RDW 13.9 % (11.7-14.6); RDW-SD 46.8 fL; WBC 8.37 10^3/uL (4.4-10.8)
[2024-12-02 07:22] LABS: ALT 17 U/L (14-59); AST 17 U/L (15-37); Albumin 3.1 g/dL (3.4-5.0); Alkaline Phosphatase 61 U/L (46-116); Anion Gap 4.4 mmol/L (3-11); BUN 26 mg/dL (7-18); Bilirubin, Total 0.2 mg/dL (0.2-1.0); CO2 30.6 mmol/L (21.0-32.0); CREATININE 1.5 mg/dL (0.55-1.02); Chloride 104 mmol/L (98-107); Estimated GFR 33.73 (mL/min/1.73m2); Glucose 113 mg/dL (74-106); Magnesium 2.4 mg/dL (1.8-2.4); Potassium 3.9 mmol/L (3.5-5.1); Sodium 139 mmol/L (136-145); Total Protein 6.8 g/dL (6.4-8.2)
[2024-12-02 07:44] VITALS: BP 92/40; PULSE 91; RESP 18; TEMP 36.7; O2SAT 95
--- NOTE | 2024-12-02 09:19 | W.PM.DS.N ---
Date of service: 12/02/24 Time of Service: 09:20 DS: Diagnosis Discharge Diagnosis (1) Traumatic hematoma: Status: Acute (2) Pain of left knee after injury: Status: Acute (3) Chronic anxiety: Status: Chronic (4) Atrial fibrillation: Status: Resolved (5) CKD (chronic kidney disease) stage 3, GFR 30-59 ml/min: Status: Chronic (6) Essential hypertension: (7) S/P aortic valve replacement with bioprosthetic valve: Status: Chronic (8) Hyperlipidemia: (9) Hypothyroidism: (10) Migraine headache: Status: Chronic Discharge Plan Disposition Patient Disposition: Home W/Home Health Services Condition: Improving Discharge Details Reason For Visit: Hematoma Left Knee,Left Knee Effusion/Pain Status Admit Date/Time: 11/30/24 19:09 Admit Provider: Dc Grove Attending Provider: Dc Grove Primary Care Provider: Tamie [facility] Course Hospital Course: This 84-year-old female patient living with her elderly sister locally with a PMHx of osteoarthritis of right hip, aortic valve repair, afib , hypothyroid, HTN, presented to the ED on 11/30/24 for left knee pain s/p mechanical fall and landing on her left knee. Workup was negative for fractures as per imaging but a patellar hmatoma finding was discussed with radiology and [facility] [place] without further recommendations. Labs values were unremarkable except for mild anemia. The patient was admitted to the medical surgical floor for observation, pain control, physical therapy and occupational therapy. Pain control achieved with scheduled acetaminophen and as needed oral morphine; reported that tramadol, NSAIDs, and acetaminophen has not help her with pain in the past. The patient remained hemodynamically stable with ongoing stable mild anemia and will be discharged home with home health physical therapy and occupational therapy. Patient advised not to take any benzodiazepines while on short term as needed morphine for pain control. Oral fluid intake should be maintained. Follow-up with PCP within 7 days of discharge, please. Discussed with Dr. Rodrigues Home Meds and New Rx's Prescriptions: New morphine 15 mg Tablet 7.5 mg PO Q4H PRN PRNQty: 10 0RF acetaminophen 325 mg capsule 650 mg PO TID Qty: 30 0RF Rx Instructions: Take as schedule to reduce your need to take the PRN morphine ondansetron 4 mg tablet,disintegrating 4 mg PO Q6H PRNQty: 20 0RF Continued levothyroxine 50 mcg tablet 50 mcg PO DAILY Qty: 90 4RF lisinopril 20 mg tablet 20 mg PO DAILY Qty: 90 4RF metoprolol succinate 50 mg tablet extended release 24 hr 50 mg PO DAILY Qty: 90 3RF rizatriptan [Maxalt-[employer]] 10 mg tablet,disintegrating 10 mg PO BID PRN (Reason: migraine headache) Qty: 5 0RF simvastatin 40 mg tablet 40 mg PO QPM Qty: 90 4RF omeprazole 40 mg capsule,delayed release(DR/EC) 40 mg PO DAILY Qty: 90 5RF Aspirin/Acetaminophen/Caffeine [Excedrin Extra Strength Caplet] 1 EACH tablet 2 ea PO DAILY multivitamin [Daily Multiple] 1 EACH tablet 1 ea PO DAILY furosemide 40 mg tablet 40 mg PO DAILY Qty: 90 3RF coenzyme Q10 [CoQ-10] 100 mg Capsule 100 mg PO DAILY Held diazepam [Valium] 5 mg tablet 5 mg PO BID MDD 2 PRN (Reason: anxiety) Qty: 90 2RF Hold Instructions: Resume on 12/10/24. Hold while taking as needed morphine for pain control and resume as per PCP Rx Instructions: 3 month supply Discharge Instructions Referrals: Tamie Mary MD, [place] [Primary Care Provider] - (Follow-up with 7 days of discharge) Activity:: Activity as Tolerated Equipment/Supplies:: Walker Diet:: heart healthy DS: Summary Time Spent with Patient providing and/or coordinating discharge services: Greater than 30 minutes Status at Discharge Functional status at discharge: uses cane/walker Overall status at discharge: patient is progressing back to baseline Mental Status: mental status grossly normal Speech and Movement: speech and movement normal Mood: congruent mood Affect: normal affect Quality:SDOH Health Related Social Needs: Health related social needs education (Z55.6) Exam Narrative Exam Narrative: Constitutional 84 yo female patient looking younger than stated age, without acute distress HENMT: No JVD, Facial structures with normal appearance Neuro:alert and oriented X4 , no neurological focal deficit Resp: Unlabored breathing, clear lung bilaterally Cardio: regular rhythm, S1, S2, + murmur, capillary refill<3 sec., bilateral radial and dorsalis pedis pulses are positive GI: Abdomen is not distended, soft and non tender, bowel sounds are present Back/spine/Pelvis: No back tenderness, normal alignment Integumentary:limited subcutaneous hematoma to left knee Extremities: strength 4/5 Aiyana, left knee flexion 90% Psych: RASS 0, congruent mood and normal affect. Psych Mental Status: mental status grossly normal Speech and Movement: speech and movement normal Mood: congruent mood Affect: normal affect DS: Data Vitals/I&O Vitals and I&O: Vital Signs Temperature 36.7 C 12/02/24 07:44 Temperature Source Temporal Artery Scan 12/02/24 07:44 Pulse 91 H 12/02/24 07:44 Pulse Rhythm Regular 11/30/24 21:36 Pulse 94 H 11/30/24 21:01 Respiratory Rate 18 12/02/24 07:44 Respiratory Effort Normal, Non-Labored 11/30/24 21:36 Blood Pressure 92/40 L 12/02/24 07:44 Blood Pressure Mean 65 11/30/24 21:00 Blood Pressure Position Supine 11/30/24 15:10 Pulse Oximetry 95 12/02/24 07:44 Oxygen Delivery Method Room Air 12/02/24 07:44 Oxygen Flow Rate 0 12/02/24 07:44 Pain Level 0 12/02/24 07:44 Comment Notifying RN 12/02/24 07:44 Comment Manual BP initiated 11/30/24 21:00 Intake & Output 12/01/24 12/01/24 12/02/24 11:59 23:59 11:59 Intake Total 500 / 1000 500 / 1000 Output Total 550 / 1825 1275 / 1825 400 / 400 Balance -50 / -825 -775 / -825 -400 / -400 Weight 75.8 kg 73.1 kg Intake: Oral 500 / 1000 500 / 1000 Output: Urine 550 / 1825 1275 / 1825 400 / 400 Other: Urine Color Yellow Pale Yellow Yellow Urine Appearance Clear Clear Clear Urine Odor Strong Normal Data Completed and Pending Labs on day of discharge: Labs from last 24 hours 12/02/24 06:40 WBC 8.37 RBC 3.44 L Hgb 10.1 L Hct 31.5 L MCV 92 MCH 29.4 MCHC 32.1 RDW 13.9 Plt Count 236 MPV 10.6 Sodium 139 Potassium 3.9 Chloride 104 Carbon Dioxide 30.6 Anion Gap 4.4 BUN 26 H Creatinine 1.5 H Est GFR (CKD-EPI 2020) 33.73 Glucose 113 H Calcium 9.0 Magnesium 2.4 Total Bilirubin 0.2 AST 17 ALT 17 Alkaline Phosphatase 61 Total Protein 6.8 Albumin 3.1 L PFSH All Active Problems (Updated 12/01/24 @ 07:08 by Dc Grove) Knee swelling (Acute) Fall (Acute) Acute pain of left knee (Acute) Migraine headache (Chronic) Chronic anxiety (Chronic) CKD (chronic kidney disease) stage 3, GFR 30-59 ml/min (Chronic) Pain of left knee after injury (Acute) Traumatic hematoma (Acute) Cholesteatoma (Acute) Conductive hearing loss in left ear (Acute) B12 deficiency (Acute) Tympanic membrane perforation (Acute) Osteoarthritis of right hip (Chronic) POCUS INJECTION 11/17/24 Rupture of tympanic membrane due to otitis media (Acute) Right knee pain (Acute) Mixed hearing loss (Acute) H/O aortic valve repair (Acute) Lumbar radiculopathy (Acute) Shoulder pain, right (Acute) 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) Iliotibial band syndrome, right leg (Acute) Spinal stenosis at L4-L5 level (Acute) Left bundle branch block (Acute) S/P aortic valve replacement with bioprosthetic valve (Chronic) Aortic valve replaced (Acute) [place] [facility] [place]thritis of right hip (Acute) Tear of right gluteus medius tendon (Acute) Iliotibial band syndrome of right side (Acute) Trochanteric bursitis, right hip (Acute) Injection: 05/02/21; 10/04/20; 10/16/2018 Screening for colon cancer (Acute) Diverticulitis large intestine (Acute) Aortic valve stenosis (Acute) Mitral valve regurgitation (Acute) Tricuspid valve disorder (Acute) Ventricular arrhythmia (Acute) H/O colonoscopy (Chronic ~06/2018) Diverticulosis (Chronic) Tubular adenoma (Chronic) 05/20/12; DR. LAM;TUBULAR ADENOMA ; SIGMOID DIVERTICULOSIS 06/11/18; DR. MOTA Renal insufficiency (Chronic) Globus sensation (Chronic 10/22/13) Gastroesophageal reflux disease (Chronic) Diverticulosis of colon without diverticulitis (Chronic 05/22/12) Medical History Elevated serum creatinine Low back pain radiating to left leg Cervical radiculopathy Neck pain on right side Right shoulder pain Perforation of left tympanic membrane Abdominal pain Acute diffuse otitis externa of left ear Abnormal auditory perception Cerumen impaction Sore throat Primary osteoarthritis of right hip Low back pain with sciatica (07/12/03) On amiodarone therapy (04/10/17) Skin lesion of left lower extremity (02/07/16) Trochanteric bursitis Peroneal tendonitis of right lower leg Periorbital cellulitis of right eye 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 Hallman; moderate mitral annular calcification (mild mitral insufficiency) mild on 2013 Ventricular arrhythmia sinus tachycardia; NL ECHO, NL Holter, asymptomatic on metoprolol Aortic valve stenosis needs replacement 0.7 cm Severe dysmenorrhea s/p hysterectomy 1981 Abnormal mammogram, unspecified 07/12/04 cat 3; 6 mo f/u Central perforation of tympanic membrane of left ear 01/03/16 Impacted cerumen of left ear 01/03/16 Leg skin lesion, left 02/07/16 Atrial fibrillation 04/10/17 unspecified Other mcc (current) drug therapy 04/10/17 On Amiodarone Therapy Throat clearing 05/15/17 Colorectal polyps 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 w/ deficit; right Surgical History Status post abdominal hysterectomy Status post breast lumpectomy Status post carpal tunnel release Status post right cataract extraction (03/07/16) S/P breast lumpectomy 08/13/80 right breast cancer S/P abdominal hysterectomy 08/13/81 total; for dysmennorrhea S/P carpal tunnel release 08/13/00 Status post cataract extraction 03/07/16 right cataract s/p b/l cataract extraction; Dr. Proctor; 02/22/16 right; 11/07/16 left Open Carpal Tunnel release (~2000) Abdominal hysterectomy (~1981) TOTAL for dysmenorrhea [place]ART SURGERY [place] [facility] [place] of [place] 02/25-RIGHT 11/07/16- LEFT DR. PROCTOR Breast, Lumpectomy (~1980) RIGHT BREAST CA Family History Mother , 84 Colon cancer Father , 89 Stomach cancer Sister A-fib Depression Heart disease Hyperlipidemia Brother , 89 Essential hypertension Dementia Heart disease PACEMAKER Hyperlipidemia Colon cancer Prostate cancer Sister Essential hypertension Hyperlipidemia Maternal Grandfather No problems noted. Paternal Grandfather No problems noted. Maternal Grandmother No problems noted. Paternal Grandmother No problems noted. 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 Counseling given: No Counseling provided: none Details: rx: diazepam Caregiver/Support person: No Household members: family Housing: house Do you need help understanding health information?: Rarely Pets and animals: No Sexually active: No Do you think of yourself as: straight/heterosexual Current gender identity: female What is your relationship status?: never How often do you talk on the phone with friends or family?: decline to answer How often do you get together with friends or relatives?: decline to answer How often do you attend voodoo or mandaen services?: decline to answer Do you belong to any clubs or organized social groups?: decline to answer Panel score (0-1 are the most socially isolated patients): 0 What type of physical activity do you participate in: bicycling Duration: 45-60 minutes/day Frequency: 1-2 times per week Gisselle/Sikhism: [employer] Special gisselle needs: No Seatbelt use: always Drive intox or ride w/intox combine driver: No Do you feel safe at home: Yes Do you feel safe in your relationship?: Yes Time Spent with Patient Time Spent with Patient: 70-84 minutes4 Time was spent: preparing to see the patient(eg.review tests), obtaining and/or reviewing separately otained hiistory, ordering medications,tests, procedures, referring, communicating with other health day care teacher, indepentently interpreting results, counseling the patient and care coordination
[2024-12-02] MEDS: Metoprolol CR 50 MG TABCR PO (09:34)
[2024-12-02] MEDS: Multivitamin TAB 1 TAB PO (09:34)
[2024-12-02] MEDS: Normal Saline Flush 10 ML SYR IVP ×2 (09:35→10:38)
[2024-12-02 09:51] VITALS: BP 100/52; BP 110/49; BP 110/60; BP 112/60; PULSE 105; PULSE 97; PULSE 98
--- NOTE | 2024-12-02 09:59 | PDOC.HHF2F ---
Home Health Referral Home Health Orders Clinical synopsis of why skilled professionals are needed: This 84-year-old female patient living with her elderly sister locally with a PMHx of osteoarthritis of right hip, aortic valve repair, afib, hypothyroid, HTN, presented to the ED on 11/30/24 for left knee pain s/p mechanical fall and landing on her left knee. Workup was negative for fractures as per imaging but a patellar hmatoma finding was discussed with radiology and [facility] [place] orthopedics services without further recommendations. Labs values were unremarkable except for mild anemia. The patient was admitted to the medical surgical floor for observation, pain control, physical therapy and occupational therapy. Pain control achieved with scheduled acetaminophen and as needed oral morphine; reported that tramadol, NSAIDs, and acetaminophen has not help her with pain in the past. The patient remained hemodynamically stable with ongoing stable mild anemia and will be discharged home with home health physical therapy and occupational therapy. Patient advised not to take any benzodiazepines while on short term as needed morphine for pain control. Oral fluid intake should be maintained. Follow-up with PCP within 7 days of discharge, please. Discussed with Dr. Rodrigues Physical Therapist: Check all that apply Increase strength & endurance for safe mobility at home: Ordered To design/establish home maintenance program: Ordered Fall reduction therapy program for patient with history of frequent falls: Ordered Home safety evaluation and teaching/gait training including stair management (if applicable): Ordered Occupational Therapist: Evaluate and treat for patient unable to perform ADL/IADL/self-care: Ordered Upper extremity strengthening, range and motion: Ordered Home Bound Status Requires the aid of supportive device (check all that apply): Walker Describe why leaving home would require a considerable and taxing effort: Requires frequent rest periods Encounter Date and Reason: I certify that a FTF encounter for this patient was performed on December 02, 2024 and that such encounter was related to the primary reason the patient requires home health services. The encounter was conducted in the following manner: By me as the certifying physician, ASSOCIATE DIRECTOR REGULATORY AFFAIRS, [place] or By an inpatient physician, ASSOCIATE DIRECTOR REGULATORY AFFAIRS or PA during an inpatient stay who communicated findings to me, Certification And Authentication I certify that I composed the above information based on my clinical judgment relating to this patient's medical condition and, if applicable, clinical findings communicated to me by the NPP or inpatient physician who performed the FTF encounter. Name of Provider that will be monitoring home health services: Tamie Bush
[2024-12-02] MEDS: Lactated Ringers 1,000 ML 1000 ML IV (10:37)
[2024-12-02 11:26] VITALS: BP 111/50; PULSE 96; RESP 18; TEMP 36.7; O2SAT 97
--- NOTE | 2024-12-02 12:02 | CHAPLAIN ---
Fiorella was resting in bed when I visited. She said she's waiting for her nurse to change her IV which was leaking. She was pleasant and thanked me for visiting but was not interested in further conversation. She said she's in touch with family members who are checking in on her. I offered support.
--- NOTE | 2024-12-02 12:49 | PT.INTREAT ---
PT Notes Visit Reasons: Hematoma Left Knee,Left Knee Effusion/Pain Status Inpatient Physical Therapy Treatment Note [facility] Date: 12/02/24 SUBJECTIVE: Fiorella reports she is having a little more pain right at the front of the knee where she landed on it. OBJECTIVE: presented seated at edge of bed. Nursing reporting BP low but able to participate. ? VITALS: ?monitored by nsg. 110/60 sitting pre treatment, after stairs seated 101/63 HR 101, 5 mins after stairs: 115/70 HR96 Therapeutic Activities (70749i1): Direct one-on-one instruction in dynamic activities to improve functional performance. ? BED MOBILITY/TRANSFERS? sitting in recliner? Sit-stand: SBA? Stand-sit: SBA ? Provided skilled cues and instruction on performance and technique throughout. GAIT: Assistive Device: FWW? Weight bearing: AT Assist: SBA ? Distance:? 75'x2 ? Deviation: shortened stride length, decreased heel strike and push off? STAIRS:ascended/descended 2x6 steps and 3x 4 steps (X2) with 2 rails. Step to gait pattern with SBA. with cues for sequencing? Therapeutic Exercises ([id number]): Direct one-on-one instruction in therapeutic exercises to develop strength, endurance, range of motion and flexibility. ? Exercises ? ROM of left knee in sitting and standing positions: marching , seated heelslides. APs with leg elevated, LAQ x10. Ambulation ? Assistive Device: FWW? Weight bearing: AT Assist: CGA ? Distance:? 75'x2 ? Deviation: shortened stride length, decreased heel strike and push off? Provided skilled instruction in proper exercise performance ASSESSMENT:?tolerated session well. No increase in pain with wt bearing. Reminders/cues for proper stair negotiation. Pt with increased tolerance to knee flexion in sitting . Ice with elevation at end of session to help decrease the swelling. PLAN: anticipate d/c to home today TREATMENT CODE/TIME: 45621,69426/ [id number] DISCHARGE RECOMMENDATION: home with HHPT
--- NOTE | 2024-12-02 14:26 | PDOC.CMDIS ---
Date of service: 12/02/24 Time of Service: 14:27 LACE Index Scoring Tool Questions: Length of Stay (in days): 2 Was the patient admitted via the E.D.?: Yes Comorbidities: Any Tumor and Liver or Renal Disease E.D. Visits: 2 Answers: Total Score: 12 Risk of Readmission: High Risk Care Management Discharge Plan Reason for Hospitalization: s/p fall Left knee hematoma Discharge Plan: Fiorella was discharged home earlier today with new services of PT/OT. Fiorella will f/u with her PCP on 12/08/24, and continue per her plan of care. Fiorella was transported home in a private vehicle by her niece. Patient/Family Education Needs: Review of discharge instructions, activity, limitations, and discuss ask me 3. Services Needed at Discharge: Home Health Care Services (new services through [facility] of PT/OT) SDOH Health Related Social Needs: Health related social needs education (Z55.6)
== END 2024-12-02 13:51 | disposition home health service (06) ==
LOC: ER 19:42 → MS 12-01 08:22
PROVIDERS: Admitting Provider Family Medicine; Emergency Provider Student in an Organized Health Care Education/Training Program; PCP Family Medicine; Responsible Provider Nurse Practitioner Acute Care; Visit Provider Family Medicine
DX: I48.0 Paroxysmal atrial fibrillation; G89.11 Acute pain due to trauma; F41.9 Anxiety disorder, unspecified; N18.31 Chronic kidney disease, stage 3a; M25.462 Effusion, left knee; I12.9 Hypertensive chronic kidney disease with stage 1 through stage 4 chronic kidney disease, or unspecified chronic kidney disease; Z95.3 Presence of xenogenic heart valve; E78.2 Mixed hyperlipidemia; S80.02XA Contusion of left knee, initial encounter; E03.9 Hypothyroidism, unspecified; G43.809 Other migraine, not intractable, without status migrainosus; W01.0XXA Fall on same level from slipping, tripping and stumbling without subsequent striking against object, initial encounter; M16.11 Unilateral primary osteoarthritis, right hip; E53.8 Deficiency of other specified B group vitamins; M47.26 Other spondylosis with radiculopathy, lumbar region; I44.7 Left bundle-branch block, unspecified; M48.061 Spinal stenosis, lumbar region without neurogenic claudication; I08.1 Rheumatic disorders of both mitral and tricuspid valves; K57.30 Diverticulosis of large intestine without perforation or abscess without bleeding; K21.9 Gastro-esophageal reflux disease without esophagitis; Z85.3 Personal history of malignant neoplasm of breast; D64.9 Anemia, unspecified
CPT/HCPCS: 00123; 36415; 73552; 80053; 80307; 85027; 87637; 96361; 96372; 96374; 96375; 96376; 97110; 97161; 97530; 99285; 72192; 73560; 73700; 81003; 83735; 84443; 85025; 85610; 85730; 99223; 99233; 99239; G0378; J0131; J1644; J2270; J2405

== ENCOUNTER 2025-03-18 01:28 | Outpatient (CLI) | payer MEDICARE, SELFPAY ==
--- NOTE | 2025-03-18 13:30 | DI.US_ITS ---
APPROVED REPORT EXAM: Comprehensive 2D, Doppler, and color-flow Echocardiogram Patient Location: Out-Patient Cryptologic Technician: Alpa Arceo RDCS (AE) Indications: Aortic valve replacement with bioprosthetic, Atrial fibrillation. Other Information Study Quality: Adequate Conclusion Normal left ventricular wall thickness and chamber size. Ejection fraction is 55%. Wall motion is normal Normal right ventricular size and function both atria are normal in size Bioprosthetic aortic valve functioning normally without stenosis or regurgitation Mitral annular calcification. Mild mitral regurgitation Mild tricuspid regurgitation. Estimated right ventricular systolic pressure is 27 mmHg Wall motion Left Ventricle The left ventricle is normal size. The left ventricular systolic function is normal. The left ventricular ejection fraction is within the normal range. There is normal left ventricular wall thickness. There is normal LV segmental wall motion. There is no ventricular septal defect visualized. LVEF is 55%. Right Ventricle The right ventricle is normal size. The right ventricular systolic function is normal. Atria The left atrium size is normal. The right atrium size is normal. The interatrial septum is intact with no evidence for an atrial septal defect. Aortic Valve Bioprosthetic aortic valve is present. Mitral Valve Moderate mitral annular calcification. No evidence of mitral valve stenosis. Mild mitral regurgitation. Tricuspid Valve The tricuspid valve is normal in structure. There is no tricuspid valve stenosis. Mild tricuspid regurgitation. The RVSP is 27.2mmHg. Pulmonic Valve The pulmonary valve is normal in structure. There is no pulmonic valvular stenosis. Trace pulmonic regurgitation. Great Vessels The aortic root is normal in size. The ascending aorta is normal in size. Aortic arch is normal in caliber. IVC is normal in size and collapses >50% with inspiration. Pericardium There is no pericardial effusion. 2D Dimensions IVSD d PLAX 1.12 cm F: 0.6-1.0 Ao Root d 2.57 cm F: 2.7 - 3.3 LVPW d PLAX 1.00 cm F: 0.6 - 1.0 Ao Asc Diam d 2.61 cm F: 2.3 - 3.1 LVID d PLAX 3.90 cm F: 3.8 - 5.2 LVDs 2.86 cm F: 2.2 - 3.5 LV EF Teichholz 52.7 % FS 26.60 % LV EDV (Teich) 66.0 mL LV ESV (Teich) 31.3 mL M-Mode TAPSE 1.46 cm (M/F) >1.7 Auto EF LV EDV A4C 72.3 mL LV EDV A2C 84.0 mL LV EDV BP 80.0 mL LV ESV A4C 34.9 mL LV ESV A2C 40.5 mL LV ESV BP 37.9 mL LVEF(%) A4C 51.8 % LVEF(%) A2C 51.8 % LVEF(%) BP 52.6 % LV SV A4C 37.4 ml LV SV A2C 43.5 ml LV SV BP 42.1 ml LV CO A4C 3.0 L/min LV CO A2C 3.7 L/min LV CO BP 3.3 L/min HR A4C 78.92 BPM HR A2C 84.90 BPM LV EDV Index (BP) LA Volume LA Length A4C 4.9 cm LA Length A2C 5.0 cm LA Area A4C s 14.68 cm2 LA Area A2C s 17.03 cm2 LA Vol A4C A-L 37.09 mL LA Vol A2C A-L 49.47 mL LA Vol Biplane A-L 43.0 mL LA Vol/BSA A4C A-L LA Vol/BSA A2C A-L LA Vol/BSA BP A-L 24.4 mL/m2 LA Vol A4C MOD 33.9 mL LA Vol A2C MOD 47.6 mL LA Vol BP MOD 39.9 mL RA Volume RA Area A4C 16.5 cm2 RA ESV A4C (A-L) 43.1mL RA Vol/BSA A4C A-L RA Length A4C 5.4 cm RA ESV A4C (MOD) 40.7mL LV Diastology MV E' medial 0.051 (>0.07 m/s) MV E Vmax 1.21 (0.4-1.3 m/s) MV E/E' MED 23.82 (<14) MV A Vmax 1.35 (0.4-1.3 m/s) MV E' lateral 0.099 (>0.1 m/s) E/A Ratio 0.9 MV E/E' LAT 12.22 (<14) MV E' Average 0.075 m/s MV E/E'(average) 16.15 Aortic Valve AoV Vmax 1.43 m/s LVOT Vmax 0.81 m/s AoV Peak Grad 8.2 mmHg LVOT Peak Grad 2.6 mmHg AoV Area (Vmax) 1.72 cm2 LVOT VTI 0.171 m AoV VTI 0.308 m LVOT Mean Grad 1.9 mmHg AoV Mean Christiano. 0.97 m/s LVOT SV 51.97 mL AoV Mean Grad 4.4 mmHg LVOT Diam s 1.95 cm AoV Area (VTI) 1.69 cm2 AV Regurg Peak Gr. 8.21 mmHg Velocity Ratio 0.57 Mitral Valve MV DT 285 (160-240 msec) MV Vmax TIPS 1.36 m/s MV Mean Grad 4.0 (<2mmHg) MV VTI 0.339 m Pulmonary Valve PV Vmax 0.59 (0.5-1.5 m/s) RVOT Vmax 0.51 m/s PV Peak Grad 1.4 mmHg RVOT Peak Gr. 1.1 mmHg PV Mean Chrisitano 0.46 m/s RVOT VTI 0.102 m PV Mean Grad 0.9 mmHg RVOT Mean Gr. 0.6 mmHg Tricuspid Valve RA Pressure 3.00 mmHg TR Vmax 2.46 m/s TV S' 0.08 m/s TR Peak Grad 24.2 mmHg RVSP (TR) 27.2 mmHg
== END 2025-03-18 01:48 ==
LOC: DI 01:28
PROVIDERS: PCP Family Medicine; Visit Provider Internal Medicine Cardiovascular Disease
DX: I48.0 Paroxysmal atrial fibrillation (principal); Z95.3 Presence of xenogenic heart valve
CPT/HCPCS: 93306

== ENCOUNTER → 2025-03-23 14:40 | Outpatient (BNVA) | payer MEDICARE, SELFPAY | PROVIDERS: PCP Family Medicine; Visit Provider Registered Nurse | DX: Z95.2 Presence of prosthetic heart valve (principal) | CPT/HCPCS: 99214 ==

== ENCOUNTER 2025-04-29 01:45 | Outpatient (CLI) | payer MEDICARE, SELFPAY ==
[2025-04-29 14:06] LABS: HCT 41.4 % (36.0-46.0); HGB 12.9 g/dL (11.2-15.7); MCH 28.5 pg (27.0-33.0); MCHC 31.2 % (32.0-36.0); MCV 92 fL (80-95); MPV 10.6 fL (8.0-11.0); Platelet Count 246 10^3/uL (130-400); RBC 4.52 10^6/uL (3.93-5.22); RDW 14.2 % (11.7-14.6); RDW-SD 47.8 fL; WBC 6.40 10^3/uL (4.4-10.8)
[2025-04-29 14:35] LABS: ALT 22 U/L (14-59); AST 19 U/L (15-37); Albumin 3.8 g/dL (3.4-5.0); Alkaline Phosphatase 56 U/L (46-116); Anion Gap 7.4 mmol/L (3-11); BUN 19 mg/dL (7-18); Bilirubin, Total 0.4 mg/dL (0.2-1.0); CO2 30.6 mmol/L (21.0-32.0); Calcium 9.8 mg/dL (8.5-10.1); Chloride 104 mmol/L (98-107); Estimated GFR 48.94 (mL/min/1.73m2); Glucose 91 mg/dL (74-106); Potassium 4.2 mmol/L (3.5-5.1); Sodium 142 mmol/L (136-145); TSH (W/Ref FT4) 3.76 uIU/mL (0.36-3.74); Total Protein 7.7 g/dL (6.4-8.2)
== END 2025-04-29 01:46 | disposition home or self-care (01) ==
LOC: LOS 01:46
PROVIDERS: PCP Family Medicine; Visit Provider Family Medicine
DX: E03.9 Hypothyroidism, unspecified (principal); I10 Essential (primary) hypertension; D64.9 Anemia, unspecified
CPT/HCPCS: 36415; 80053; 85027; 84439; 84443